=== PATIENT | female | born 1960 | race Caucasian/White ===

== ENCOUNTER 2016-11-26 10:06 | Inpatient (IN) | payer OTHER ==
[~2016-11-26] VITALS: Ht 167.6 cm; Wt 39.2 kg
[~2016-11-26 10:06] MED LIST: CIPR500T4 PO; DICY1TAB26 PO; LEVO100T4 PO; METR-1 PO; ZOFR4TAB3 SL
[2016-11-26 10:19] VITALS: BP 119/74; PULSE 76; RESP 16; TEMP 98; O2SAT 97
[2016-11-26] MEDS ORDERED: LEVO88TA2 PO (11:14)
--- NOTE | 2016-11-26 11:19 | PD ---
HPI Chief Complaint: GI Complaint Time Seen by Provider: 11:18 Travel History International Travel<30 days: No Contact w/Intl Traveler<30days: No History of Present Illness HPI Patient 55-year-old female smoker presents emergency department for evaluation of a show pain. She states that she thought she had some sinus problems and starting to take an anti-allergy medicine. She stated that last night she threw up 4 times nonbloody and nonbilious and she's been feeling lousy. Denies any pain in the chest abdomen neck back or pelvis. Denies any weight loss. States symptoms for the past 2-3 days. PFSH Past Medical History Cancer: No Cardiovascular Problems: No Diabetes: No Diminished Hearing: No Glaucoma: No Hepatitis: No Hiatal Hernia: No Hypertension: No Respiratory: No Thyroid Disease: Yes Tubal Ligation: Yes Past Surgical History Abdominal Surgery: No Cardiac Surgery: No Ear Surgery: No Endocrine Surgery: No Eye Surgery: No Genitourinary Surgery: No Gynecologic Surgery: Yes (TUBAL LIGATION) Neurologic Surgery: No Oral Surgery: No Pacemaker: No Thoracic Surgery: No Other Surgery: No Social History Alcohol Use: No Tobacco Use: Yes (/2 PPD) Substance Use: No Allergies-Medications (Allergen,Severity, Reaction): Coded Allergies: No Known Allergies (Verified , 11/26/16) Reported Meds & Prescriptions Reported Meds & Active Scripts Active Reported Levothyroxine (Levothyroxine Sodium) 88 Mcg Tab 88 Mcg PO DAILY Review of Systems Except as stated in HPI: all other systems reviewed are Neg Physical Exam Narrative GENERAL: Well-developed well-nourished, thin but in no obvious distress. SKIN: Focused skin assessment warm/dry. HEAD: Atraumatic. Normocephalic. EYES: Pupils equal and round. No scleral icterus. No injection or drainage. ENT: No nasal bleeding or discharge. Mucous membranes pink and moist. TMs clear bilaterally, oropharynx clear moist. Minimal tenderness to bilateral maxillary sinuses. Teeth normal. No facial cellulitis. NECK: Trachea midline. No JVD. CARDIOVASCULAR: Regular rate and rhythm. No murmur appreciated. RESPIRATORY: No accessory muscle use. Clear to auscultation. Breath sounds equal bilaterally. GASTROINTESTINAL: Abdomen soft, non-tender, nondistended. Hepatic and splenic margins not palpable. No rebound no percussive tenderness. MUSCULOSKELETAL: No obvious deformities. No clubbing. No cyanosis. No edema. NEUROLOGICAL: Awake and alert. No obvious cranial nerve deficits. Motor grossly within normal limits. Normal speech. PSYCHIATRIC: Appropriate mood and affect; insight and judgment normal. Data Data Last Documented VS Vital Signs Date Time Temp Pulse Resp B/P (MAP) Pulse Ox O2 Delivery O2 Flow Rate FiO2 11/26/16 11:21 64 16 136/77 (96) 96 11/26/16 10:19 98.0 Orders Orders Electrocardiogram (11/26/16 11:18) Basic Metabolic Panel (Bmp) (11/26/16 11:18) Complete Blood Count With Diff (11/26/16 11:18) Troponin I (11/26/16 11:18) Chest, Single Ap (11/26/16 11:18) Iv Access Insert/Monitor (11/26/16 11:18) Sodium Chloride 0.9% Flush (Ns Flush) (11/26/16 11:30) Sodium Chlorid 0.9% 500 Ml Inj (Ns 500 M (11/26/16 11:30) Ondansetron Inj (Zofran Inj) (11/26/16 11:30) Ct Thorax/ Chest W Iv Contrast (11/26/16 ) Sodium, Random Urine (11/26/16 12:41) Osmolality,Serum (11/26/16 12:41) Osmolality, Urine (11/26/16 12:41) Potassium, Random Urine (K) (11/26/16 12:41) Basic Metabolic Panel (Bmp) (11/26/16 12:41) Admit Order (Ed Use Only) (11/26/16 ) Creatinine, Random Urine (11/26/16 12:55) Labs Laboratory Tests Test 11/26/16 11:44 White Blood Count 3.5 TH/MM3 Red Blood Count 4.44 MIL/MM3 Hemoglobin 14.2 GM/DL Hematocrit 41.2 % Mean Corpuscular Volume 92.7 FL Mean Corpuscular Hemoglobin 32.0 PG Mean Corpuscular Hemoglobin Concent 34.5 % Red Cell Distribution Width 11.6 % Platelet Count 229 TH/MM3 Mean Platelet Volume 7.9 FL Neutrophils (%) (Auto) 62.2 % Lymphocytes (%) (Auto) 23.3 % Monocytes (%) (Auto) 12.3 % Eosinophils (%) (Auto) 0.8 % Basophils (%) (Auto) 1.4 % Neutrophils # (Auto) 2.3 TH/MM3 Lymphocytes # (Auto) 0.8 TH/MM3 Monocytes # (Auto) 0.4 TH/MM3 Eosinophils # (Auto) 0.0 TH/MM3 Basophils # (Auto) 0.0 TH/MM3 CBC Comment DIFF FINAL Differential Comment Blood Urea Nitrogen 3 MG/DL Creatinine 0.46 MG/DL Random Glucose 93 MG/DL Calcium Level 8.6 MG/DL Sodium Level 116 MEQ/L Potassium Level 3.8 MEQ/L Chloride Level 81 MEQ/L Carbon Dioxide Level 26.2 MEQ/L Anion Gap 9 MEQ/L Estimat Glomerular Filtration Rate 140 ML/MIN Troponin I LESS THAN 0.02 NG/ML MDM Medical Decision Making Medical Screen Exam Complete: Yes Emergency Medical Condition: Yes Interpretation(s) Patient's EKG shows sinus rhythm with first-degree heart block. DC interval is 227, intervals otherwise within normal limits. Normal axis normal R-wave progression. No concerning ST segment changes. This abnormal EKG. Differential Diagnosis Sinusitis, gastritis, gastroenteritis, pneumonia unlikely, electrolyte abnormality. Narrative Course Patient roomed emergency department, has a vague symptoms of just not feeling well. Patient's Chest x-ray shows a right upper lobe mass concerning for malignancy. Sodium returns at 116 high possibility for SIADH secondary to lung cancer. Given her smoking history and her very thin habitus this is likely her diagnosis. The patient did appear somewhat dehydrated and received 500 cc of normal saline. This bolus had completed bedtime her sodium returned. We'll speak with the patient regarding CAT scan admission to the hospital further workup. I've spoken with the patient regarding her probable diagnosis of SIADH and lung cancer. She is reasonably sudden by the news and wishes to proceed forward. He was discussed with hospitalist for admission. Diagnosis Primary Impression: Hyponatremia Additional Impression: Lung mass Admitting Information Admitting Physician Requests: Admit Condition: Joss Kelly MD Nov 26, 2016 11:19
[2016-11-26 11:21] VITALS: BP 136/77; PULSE 64; RESP 16; O2SAT 96
[2016-11-26] MEDS ORDERED: SODIUM CHLORID 0.9% 500 ML INJ 500 ML IV ONE (11:30)
[2016-11-26] MEDS ORDERED: ONDANSETRON HCL 4 MG/2 ML VIAL IV PUSH ONE (11:30)
[2016-11-26] MEDS ORDERED: SODIUM CHLORIDE 0.9% FLUSH 10 ML FLUSH IVF PRN (11:30)
--- NOTE | 2016-11-26 11:37 | RADRPT ---
EXAM DATE/TIME: 11/26/2016 11:20 [facility] COMPARISON: CHEST PA & LAT, November 13, 2013, 12:13. INDICATIONS : Chest pain for 2 days. MEDICAL HISTORY : None. SURGICAL HISTORY : None. ENCOUNTER: Initial ACUITY: 2 days PAIN SCORE: 0/10 LOCATION: Bilateral chest FINDINGS: A single view of the chest demonstrates right upper lobe density. Left lung clear. The cardiomediasti nal contours are unremarkable. Osseous structures are intact. CONCLUSION: Right upper lobe density, CT chest recommended.. Francisco Hair MD on November 26, 2016 at 11:35 Board Certified Radiologist. This report was verified electronically.
[2016-11-26 11:54] LABS: AUTOMATED NEUTROPHIL # 2.3 TH/MM3 (1.8-7.7); BASOPHIL % 1.4 % (0.0-2.0); EOSINOPHIL % 0.8 % (0.0-4.0); HEMATOCRIT 41.2 % (35.0-46.0); HEMO FLAGS DIFF FINAL; LYMPH % 23.3 % (9.0-44.0); LYMPHOCYTE # 0.8 TH/MM3 (1.0-4.8); MEAN CELL VOLUME 92.7 FL (80.0-100.0); MEAN CORPUSCULAR HGB CONC 34.5 % (32.0-36.0); MONO % 12.3 % (0.0-8.0); NEUT % 62.2 % (16.0-70.0); PLATELET COUNT 229 TH/MM3 (150-450); RED BLOOD COUNT 4.44 MIL/MM3 (4.00-5.30); RED CELL DISTRIBUTION WIDTH 11.6 % (11.6-17.2); WHITE BLOOD COUNT 3.5 TH/MM3 (4.0-11.0)
[2016-11-26] MEDS ORDERED: IOHEXOL 350 MG/ML 10 ML VIAL (for RAD DIAG) IV ONE (12:00)
[2016-11-26 12:10] LABS: ANION GAP 9 MEQ/L (5-15); BICARBONATE 26.2 MEQ/L (21.0-32.0); BLOOD UREA NITROGEN 3 MG/DL (7-18); CHLORIDE 81 MEQ/L (98-107); GLOMERULAR FILTRATION RATE 140 ML/MIN (>89); POTASSIUM 3.8 MEQ/L (3.5-5.1)
[2016-11-26 12:17] LABS: SODIUM (NA) 116 MEQ/L (136-145)
--- NOTE | 2016-11-26 13:19 | RADRPT ---
EXAM DATE/TIME: 11/26/2016 13:04 [facility] COMPARISON: No previous studies available for comparison. INDICATIONS : Overall ill feeling, nausea, vomiting weakness.Right upper lobe density seen on chest xray. IV CONTRAST: 70 cc Omnipaque 350 (iohexol) IV RADIATION DOSE: 6.20 CTDIvol (mGy) MEDICAL HISTORY : None SURGICAL HISTORY : Tubal ligation. ENCOUNTER: Initial ACUITY: 1 week PAIN SCALE: 0/10 LOCATION: chest right upper lobe. TECHNIQUE: Volumetric scanning of the chest was performed. Using automated exposure control and adjustment of t he mA and/or kV according to patient size, radiation dose was kept as low as reasonably achievable to obtain optimal diagnostic quality images. DICOM format image data is available electronically for review and comparison. Follow-up recommendations for detected pulmonary nodules are based at a minimum on nodule size and pa tient risk factors according to Fleischner Society Guidelines. FINDINGS: LUNGS: There is right upper lobe mass measuring 2.4 x 1.6 cm. Severe centrilobular emphysema. Left lung ernesto r. PLEURA: There is no pleural thickening or pleural effusion. MEDIASTINUM: The heart and great vessels demonstrate no acute abnormality. Right suprahilar adenopathy measures 2. 3 x 2.2 cm. AXILLAE: Within normal limits. No lymphadenopathy. SKELETAL: Within normal limits for patient age. MISCELLANEOUS: The visualized upper abdominal organs demonstrate no acute abnormality. CONCLUSION: 1. Right upper lobe mass measuring 2.4 x 1.6 cm. 2. Right suprahilar adenopathy. 3. Severe emphysema. Francisco Hair MD on November 26, 2016 at 13:15 Board Certified Radiologist. This report was verified electronically.
[2016-11-26 13:51] VITALS: BP 142/77; PULSE 72; RESP 16; O2SAT 97
[2016-11-26 14:06] LABS: POTASSIUM 3.5 MEQ/L (3.5-5.1)
[2016-11-26] MEDS ORDERED: NALOXONE HCL 0.4 MG/ML AMP IV PRN (15:15)
[2016-11-26] MEDS ORDERED: ONDANSETRON HCL 4 MG/2 ML VIAL IVP PRN (15:15)
[2016-11-26] MEDS ORDERED: SODIUM CHLORIDE 0.9% FLUSH 10 ML FLUSH IV FLUSH PRN (15:15)
[2016-11-26] MEDS ORDERED: SODIUM CHLORID 0.9% 500 ML INJ 500 ML IV SCH (16:00)
[2016-11-26] MEDS ORDERED: 3% SALINE INJ 500 ML IV ONE (16:00)
[2016-11-26] MEDS: PANTOPRAZOLE SODIUM 40 MG VIAL IV PUSH SCH (16:16)
--- NOTE | 2016-11-26 16:24 | MH ---
cc: JENN THOMAS M.D. DATE OF ADMISSION: 11/26/2016 ADMISSION DIAGNOSIS: Hyponatremia and lung mass. HISTORY OF PRESENT ILLNESS: Ms. Sagastume is a very pleasant 55-year-old patient of Dr. Gilberto Moyer who came to the emergency room after experiencing a week of general malaise, fatigue and headache. She states this started approximately Monday. She primarily states that she did not feel right. She felt like there was something wrong but there was nothing really specific that she can tell me. She was little bit more tired than usual. She had a headache. She was taking ibuprofen 200 milligrams twice a day for her headache with a little bit of relief. She was having trouble eating. She was getting nauseous when she ate and she was having emesis. She was trying to keep herself hydrated with óscar el and water primarily in the evening. She says that when she threw up it was clear. There has been no decrease in urination. No fevers but she states she has had some chills. No change in her bowel movements. She really has not been coughing or short of breath. Her symptomatology was not very specific. She stated she simply was not feeling well. PAST MEDICAL HISTORY: Her past medical history is significant for: Hypothyroidism. PAST SURGICAL HISTORY: Tubal ligation. ALLERGIES: SHE IS NOT ALLERGIC TO ANYTHING. MEDICATIONS: 1. Levothyroxine 88 micrograms daily. 2. Ibuprofen 200 milligrams twice a day this week primarily. HABITS: She does smoke a pack a day for approximately thirty years. Rarely consumes alcohol. SOCIAL HISTORY: She is . She states that last year her had a liver transplant and a lot of her energy has been directed in caring for him. 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 FAMILY HISTORY: Diabetes. REVIEW OF SYSTEMS: See history of present illness. The only other thing of significance is that she has had a 10 to 15 pound unintentional weight loss this year. She states that when she has been sick before she has been given inhalers for wheezing but she does not feel that she has been wheezing currently. PHYSICAL EXAMINATION: VITAL SIGNS: Temperature is 98, pulse is 76, respirations 16, blood pressure is 119/74, pulse oximetry on room air is 97%. GENERAL: This is a very thin woman but very pleasant. She does not appear to be in any acute distress. HEAD, EYES, EARS, NOSE, THROAT: She is normocephalic and atraumatic. Extraocular muscles intact. She has moist oral mucosa. NECK: Her neck is supple. I can palpate no adenopathy. LUNGS: Clear to auscultation. HEART: Regular rate and rhythm. She has no ectopy. ABDOMEN: Good bowel sounds in all four quadrants. She does have a little belly button ring. A little bit of mid-epigastric tenderness on deep palpation. EXTREMITIES: No cyanosis, clubbing or edema. She does have some tattoos on her lower extremities. LABORATORY DATA: Lab work that was done when she came in: White count of 3.5, hemoglobin of 14.2, hematocrit of 41.2, platelet count of 229,000. Her sodium was remarkable for a sodium of 116, potassium 3.8, BUN of 3, creatinine 0.46, GFR was 140, glucose was 93, calcium was 8.6. Troponin was less than 0.42. Urine osmolality was 164. Urine random sodium was 39. Urine potassium was 15. IMAGING STUDIES: Chest x-ray that was done showed right upper lobe density. CT scan that was done showed a right upper lobe mass measuring 2.4 x 1.6 cm with severe central lobar emphysema. The left lung was clear. On the mediastinum, the great vessels showed no abnormality but there was a right suprahilar adenopathy that measured 2.3 x 2.2 cm. No lymphadenopathy in the axillary region. Upper abdominal organs appear to be normal. ASSESSMENT AND PLAN: A 55-year-old female presenting to the emergency room with generalized weakness and fatigue with findings of hyponatremia. 1. At this point, she has been admitted. 2. Will try to replace her sodium. 3. I have asked nephrology to see her. 4. She has finding of a right upper lobe lung mass as well as emphysema.The mass is concerning for malignancy. I have also asked the regional director of finance to see her for further recommendations. 6. For her hypothyroidism, will continue her on her levothyroxine. Further recommendations as the case develops. Jenn Thomas MD CSBeata/GEO /3:39 PM /4:10 PM NATTY
[2016-11-26] MEDS: ACETAMINOPHEN 325 MG TAB PO PRN (16:35)
[2016-11-26 16:53] VITALS: BP 125/77; PULSE 65; RESP 19; TEMP 96.6; O2SAT 98
[2016-11-26 20:15] VITALS: BP 145/85; PULSE 67; RESP 16; TEMP 98.7; O2SAT 95
[2016-11-26] MEDS: SODIUM CHLORIDE 0.9% FLUSH 10 ML FLUSH IV FLUSH SCH (21:00)
--- NOTE | 2016-11-26 23:09 | MB ---
cc: WILIAM GARCIA MD DATE OF CONSULTATION 11/26/16 REASON FOR CONSULTATION Hyponatremia management. HISTORY OF PRESENT ILLNESS This is a 55-year-old female with a history of hypothyroidism. The patient presented with general malaise, fatigue and headaches for several days. She reports she had some nausea with decreased p.o. intake. The patient had been taking some ibuprofen for headache as well. 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 The patient came the emergency room for further evaluation. Here she was found to have significant hyponatremia with a serum sodium of 116. Her renal function was otherwise stable with a creatinine of 0.4. The patient has an extensive history of tobacco use and currently still smokes. A CT of his lungs was positive for findings of right suprahilar adenopathy at the right lung and a lesion that measured 2.3 x 2.2 cm. The patient was admitted. Given her hyponatremia, the primary team initiated 3% saline at 20 cc/hour. Pulmonology was also consulted for further evaluation of lung mass. At this point, the patient is resting in bed comfortably. She reports she has been tolerating p.o. intake and is feeling somewhat better since her admission here. Her vital signs have otherwise been stable. Nephrology was consulted for further evaluation. REVIEW OF SYSTEMS The patient denies any fevers or chills today, had some subjective fever at home, had some ongoing nausea which is somewhat improved now. No diarrhea. No constipation. No dysuria. No chest pains. No shortness of breath. Otherwise, review of systems is negative. No dizziness or loss of consciousness otherwise other than general malaise. PAST MEDICAL HISTORY Hypothyroidism. PAST SURGICAL HISTORY Tubal ligation. ALLERGIES NO KNOWN DRUG ALLERGIES. MEDICATIONS At home 1. Synthroid 88 mcg daily. 2. Ibuprofen which the patient takes just this week twice per day. SOCIAL HISTORY The patient smokes a pack per day for 30 years, rare alcohol use. 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 SOCIAL HISTORY The patient is and lives at home. FAMILY HISTORY Diabetes. PHYSICAL EXAMINATION VITAL SIGNS: At time of evaluation temperature 98.7, pulse 67, respiratory rate 16, blood pressure 145/85, pulse ox 95% on room air. GENERAL: Awake, alert, oriented, no apparent distress. HEENT: Neck soft supple. CARDIAC: Regular rate and rhythm. PULMONARY: Lungs clear to auscultation. ABDOMEN: Soft, nontender, nondistended. EXTREMITIES: No edema. LABORATORY FINDINGS Sodium 117, potassium 3.5, chloride 84, bicarb 24, BUN three, creatinine 0.4, glucose 86, serum osmolality 250, calcium 8.5, troponin less than 0.02, TSH of 0.6, urine osmolality of 164, urine creatinine 21, urine sodium 39, urine potassium 15, white count 3.5, hemoglobin 14.2, hematocrit 41.2 with platelet count 229. IMAGING STUDIES CT chest with findings of right upper lobe mass measuring 2.4 x 1.6 cm and right suprahilar adenopathy with severe emphysema. ASSESSMENT/PLAN 1. Hyponatremia. The patient presents with significant hyponatremia with a serum sodium of 117. She reports she has had regular lab work as an outpatient with her primary care and reports no significant abnormalities were noted previously. The patient has a serum osmolarity of 250 and a urine osmolality of 160. She has apparent clinical presentation of hypotonic hyponatremia. At this point, it could be equivocal whether this is potential SIADH secondary to findings of new lung mass versus volume depletion with poor p.o. intake and poor solute intake over several days. The patient had been drinking óscar el and her serum chloride was low as well. There is likely a component of both here as the patient has significant hyponatremia with presentation here. We will recheck urine sodium and urine osmolality tomorrow after the patient has received some volume repletion with 3% saline as was previously ordered. Continue to monitor at this point. She continues on 3% saline at 20 cc/hour. I will go ahead and order serum sodium q. 4-6 hours for further assessment. The goal is less than 8-10 mEq of sodium correction over 24 hours. Once her serum sodium further stabilizes, can further assess for possible longer term management. The patient is starting to tolerate p.o. intake and I encouraged the patient to tolerate p.o. intake as tolerated. Otherwise, she is clinically feeling better. She has no significant findings of altered mental status or confusion otherwise and her status is actually quite stable, despite her a significant hyponatremia. Continue to follow sodium levels. We will further adjust dosing of 3% solution as needed and ideally back off on hypertonic solution once the serum sodium is further stabilized. 2. Lung mass. The patient has findings of a lung mass. Pulmonary has been consulted. This is suspicious for possible SIADH secondary to lung mass. She has an extensive tobacco history and still smokes and there is a good possibility for lung cancer here. She does have findings of emphysema. Continue to follow up with pulmonary. 3. Hypothyroidism. The patient has hypothyroidism. Her TSH levels are actually stable. All of this can contribute to hyponatremia at times. Her TSH is actually okay at this point. Continue with Synthroid. Continue to monitor. 4. Previous headaches. The patient had been taking ibuprofen. Hold ibuprofen for now. She reports her headaches have improved. MD PARMINDER JesusP/ /10:32 PM /10:43 PM MTDD
[2016-11-27 00:37] LABS: BLOOD, URINE TRACE (NEG); GLUCOSE,URINE NEG (NEG); KETONE, URINE 15 mg/dL (NEG); NITRITE,URINE NEG (NEG)
[2016-11-27 00:42] LABS: BACTERIA, URINE FEW /hpf; COMMENT (UR) CULT NOT INDICATED; CULTURE IF INDICATED CULT NOT INDICATED; RBC, URINE 0-3 /hpf (0-3); SQUAMOUS EPITHELIAL CELL URINE 0-5 /hpf (0-5); URINE COLOR YELLOW (YELLW/STRAW)
[2016-11-27 00:54] VITALS: BP 129/71; PULSE 65; RESP 16; TEMP 98.1; O2SAT 97
[2016-11-27] MEDS: LEVOTHYROXINE SODIUM 88 MCG TAB PO SCH (05:38)
[2016-11-27 06:01] LABS: AUTOMATED NEUTROPHIL # 3.6 TH/MM3 (1.8-7.7); BASOPHIL % 0.4 % (0.0-2.0); EOSINOPHIL % 0.8 % (0.0-4.0); HEMATOCRIT 38.7 % (35.0-46.0); HEMO FLAGS DIFF FINAL; LYMPH % 20.9 % (9.0-44.0); LYMPHOCYTE # 1.1 TH/MM3 (1.0-4.8); MEAN CORPUSCULAR HEMOGLOBIN 33.2 PG (27.0-34.0); MEAN CORPUSCULAR HGB CONC 35.3 % (32.0-36.0); MONO % 11.3 % (0.0-8.0); NEUT % 66.6 % (16.0-70.0); PLATELET COUNT 212 TH/MM3 (150-450); RED BLOOD COUNT 4.12 MIL/MM3 (4.00-5.30); RED CELL DISTRIBUTION WIDTH 11.4 % (11.6-17.2); WHITE BLOOD COUNT 5.3 TH/MM3 (4.0-11.0)
[2016-11-27 06:28] LABS: ALKALINE PHOSPHATASE 80 U/L (45-117); ALT (GPT) 20 U/L (10-53); ANION GAP 8 MEQ/L (5-15); AST (GOT) 31 U/L (15-37); BICARBONATE 24.9 MEQ/L (21.0-32.0); BLOOD UREA NITROGEN 6 MG/DL (7-18); CHLORIDE 89 MEQ/L (98-107); GLOMERULAR FILTRATION RATE 186 ML/MIN (>89); POTASSIUM 3.2 MEQ/L (3.5-5.1); TOTAL BILIRUBIN ADULT 0.6 MG/DL (0.2-1.0)
[2016-11-27 06:34] LABS: SODIUM (NA) 122 MEQ/L (136-145)
[2016-11-27] MEDS: SODIUM CHLORIDE 0.9% FLUSH 10 ML FLUSH IV FLUSH SCH ×2 (07:40→21:05)
[2016-11-27] MEDS: ACETAMINOPHEN 325 MG TAB PO PRN ×2 (07:40→12:35)
[2016-11-27 08:00] VITALS: BP 112/65; PULSE 63; RESP 16; TEMP 96.8; O2SAT 98
[2016-11-27] MEDS ORDERED: PNEUMOCOCCAL POLYVALENT INJ 25 MCG/0.5 ML SYR IM ONE ×2 (10:00→14:00)
[2016-11-27 12:00] VITALS: BP 138/78; PULSE 66; RESP 16; TEMP 97.2; O2SAT 96
[2016-11-27] MEDS ORDERED: 3% SALINE INJ 500 ML IV SCH (13:00)
[2016-11-27] MEDS ORDERED: SODIUM CHLORID 0.9% 500 ML INJ 500 ML IV SCH (13:00)
--- NOTE | 2016-11-27 15:10 | EKG ---
Date Performed: 11/26/2016 Time Performed: 16:03:08 PTAGE: 55 years EKG: Sinus rhythm WITH FIRST DEGREE AV BLOCK Compared to prior tracing no significant change ABNORMAL ECG PREVIOUS TRACING : 11/26/2016 11.28 DOCTOR: Christian Oliver Interpretating Date/Time 11/27/2016 15:09:19
--- NOTE | 2016-11-27 15:10 | EKG ---
Date Performed: 11/26/2016 Time Performed: 11:28:53 PTAGE: 55 years EKG: Sinus rhythm WITH FIRST DEGREE AV BLOCK Compared to previous tracing, PA interval is slightly longer, otherwise n o significant change ABNORMAL ECG PREVIOUS TRACING : 11/13/2013 11.54 DOCTOR: Christian Oliver Interpretating Date/Time 11/27/2016 15:09:09
[2016-11-27] MEDS: POTASSIUM CHLORIDE 25 MEQ EFFERVESCENT TAB PO SCH ×2 (15:11→21:05)
[2016-11-27] MEDS: PANTOPRAZOLE SODIUM 40 MG VIAL IV PUSH SCH (15:12)
--- NOTE | 2016-11-27 15:17 | HHI.PR ---
Subjective Remarks Headache a little better but still there. Able to eat a little at breakfast today. Objective Vitals Vital Signs Date Time Temp Pulse Resp B/P (MAP) Pulse Ox O2 Delivery O2 Flow Rate FiO2 11/27/16 13:40 18 11/27/16 12:00 97.2 66 16 138/78 (98) 96 11/27/16 08:00 96.8 63 16 112/65 (81) 98 11/27/16 00:54 98.1 65 16 129/71 (90) 97 11/26/16 20:15 98.7 67 16 145/85 (105) 95 11/26/16 16:53 96.6 65 19 125/77 (93) 98 11/27/16 11/27/16 11/28/16 15:00 23:00 07:00 Intake Total 750 ml Output Total 800 ml Balance -50 ml Intake Oral 750 ml Output Urine Total 800 ml # Voids 1 Result Diagram: 11/27/16 0528 11/27/16 1124 Imaging Last Impressions Chest X-Ray 11/26/16 1118 Signed Impressions: Service Date/Time: Saturday, November 26, 2016 11:20 - CONCLUSION: Right upper lobe density, CT chest recommended.. Francisco Hair MD Chest CT 11/26/16 0000 Signed Impressions: Service Date/Time: Saturday, November 26, 2016 13:04 - CONCLUSION: 1. Right upper lobe mass measuring 2.4 x 1.6 cm. 2. Right suprahilar adenopathy. 3. Severe emphysema. Francisco Hair MD Objective Remarks Lying in bed, nad Lungs clear to auscultation RRR no murmur +bs nontender SCDs A/P Problem List: (1) Hyponatremia ICD Codes: E87.1 - Hypo-osmolality and hyponatremia Status: Acute Plan: currently on 3 %ns, seen by nephrology, correct sodium slowly, seen by nephrology, agree that this may be multifactorial (2) Lung mass ICD Codes: R91.8 - Other nonspecific abnormal finding of lung field Status: Acute Plan: Pulmonary consult placed for lung mass and adenopathy, will need biopsy (3) Emphysema of lung ICD Codes: J43.9 - Emphysema, unspecified Plan: pulmonary emphysema on ct, will order pfts, (4) Nicotine dependence ICD Codes: F17.200 - Nicotine dependence, unspecified, uncomplicated Status: Chronic Plan: discussed smoking cessation, so far doing ok w/o nicotine patch or other aides Problem Qualifiers (1) Emphysema of lung: Qualified Codes: J43.2 - Centrilobular emphysema (2) Nicotine dependence: Jenn Thomas MD Nov 27, 2016 15:17
[2016-11-27 16:00] VITALS: BP 145/78; PULSE 65; RESP 16; TEMP 97.2; O2SAT 98
[2016-11-27] MEDS ORDERED: DIATRIZOATE MEGLUM/DIATRIZOATE SOD 9 ML CUP PO ONE (16:00)
--- NOTE | 2016-11-27 18:06 | MB ---
cc: RENEE MILES M.D., R. STEVEN DATE OF CONSULTATION: 11/27/2016. HISTORY OF PRESENT ILLNESS: Ms. Sagastume is a 55-year-old white female who presented to the emergency room here at [facility] with generalized malaise and feeling poorly. Basic metabolic profile revealed a sodium of 116. She has had her sodium very gradually increased. She is currently at 122. She is feeling better. She has been a smoker since the age of 13, up to 1-1/2 to 2 packs per day, and currently smokes 1 to 1-1/2 packs per day. 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 She has lost about 10 or 15 pounds over the last six months unintentionally, and appetite had been poor. She also takes care of her who had a liver transplant that year due to hepatitis C. She has been tested, and is negative. PAST MEDICAL HISTORY: 1. Hypothyroidism. 2. Previous tubal ligation. ALLERGIES: NONE KNOWN. MEDICATIONS CHRONICALLY: Thyroid replacement. SOCIAL HISTORY: and living with her . Working as noted. Very little alcohol use. No illicit drugs. Smoking noted. FAMILY HISTORY: Family history is positive for diabetes and she also had a brother who had colon cancer. Her parents are both , father from liver disease probably from alcoholism, and the mother from heart disease. MEDICATIONS HERE IN THE HOSPITAL: 1. Sodium chloride replacement. 2. Potassium. 3. Thyroid. 4. Protonix. REVIEW OF SYSTEMS: No hemoptysis or chest pain. Minimal dyspnea. Loss of appetite. Recent nausea and vomiting. No chronic edema. No bone pain. Headaches prior to admission and those have improved with salt replacement. PHYSICAL EXAMINATION: GENERAL: A thin white female in no distress. VITAL SIGNS: Afebrile, 140/70, pulse 65, respiratory rate 18, saturation 98% on room air. HEAD, EYES, EARS, NOSE, THROAT: The sclerae are nonicteric. Pharynx is clear. LYMPHATIC: No palpable adenopathy in the neck or supraclavicular regions. CHEST: Diminished but otherwise clear. HEART: Regular rhythm. No harsh murmur. ABDOMEN: Abdomen soft and nontender without organomegaly. EXTREMITIES: No peripheral edema or cyanosis. IMAGING STUDIES: CT scan is reviewed with the patient. She has both a right upper lobe mass mid-lung measured at 2.4 x 1.6. She also has right suprahilar adenopathy and underlying emphysema as well. DISCUSSION: Ms. Sagastume presents with hyponatremia, probably secondary to cancer with a prior smoking history. This procedure should be done with ultrasound navigational guidance. The lung lesion itself will be a little difficult to negotiate too but with navigational, that will improve the yield and she also has right suprahilar adenopathy which we should biopsy utilizing ultrasound guidance. Once her sodium is corrected and nephrology is working on that with the hospital physician, she could be discharged. I would also like to get an outpatient PET/CT and pulmonary functions while scheduling her for an outpatient bronchoscopy; hopefully that could be done within the next two weeks. I have also explained this procedure to the patient and explained that it could be done as an outpatient. I have explained it in simple terms so that she understands what it involves and we have also discussed potential risks including bleeding, pneumothorax or anesthetic risks. Assuming that the sodium is corrected and she can be discharged, will schedule these as an outpatient as soon as possible and then proceed with navigational and ultrasound-guided bronchoscopy to ensure maximal yield from this procedure. Further diagnostic and/or therapeutic intervention will depend on the results of these initial diagnostic studies. The patient understands that I am very concerned this represents a malignancy and the importance of immediate follow up post hospitalization. R. MD ETTA Paul/GEO /5:46 PM /5:53 PM
[2016-11-27] MEDS ORDERED: IOHEXOL 350 MG/ML 10 ML VIAL (for RAD DIAG) IVCONTRAST ONE (18:30)
--- NOTE | 2016-11-27 18:48 | RADRPT ---
EXAM DATE/TIME: 11/27/2016 18:07 [facility] COMPARISON: No previous studies available for comparison. INDICATIONS : Lung mass. Headache. IV CONTRAST: 85 cc Omnipaque 350 (iohexol) IV ; Cumulative dose for multiple exams. RADIATION DOSE: 59.01 CTDIvol (mGy) MEDICAL HISTORY : Hypothyroidism. SURGICAL HISTORY : Tubal ligation. ENCOUNTER: Initial ACUITY: 1 day PAIN SCALE: 2/10 LOCATION: cranial TECHNIQUE: Multiple contiguous axial images were obtained of the head. Using automated exposure control and adj ustment of the mA and/or kV according to patient size, radiation dose was kept as low as reasonably a chievable to obtain optimal diagnostic quality images. DICOM format image data is available electro nically for review and comparison. FINDINGS: There is no evidence for intracranial hemorrhage, mass effect, mass lesions, edema, or extra-axial fl uid collections. The visualized bony structures appear intact. The ventricles are normal size for t he patient's age. There are no signs of acute infarction for technique. The postcontrast portion is unremarkable. There is slight fluid within the right sphenoid sinus. CONCLUSION: Unremarkable study except for right sphenoid sinusitis. Sunday Velez MD on November 27, 2016 at 18:45 Board Certified Radiologist. This report was verified electronically.
--- NOTE | 2016-11-27 18:50 | RADRPT ---
EXAM DATE/TIME: 11/27/2016 18:10 [facility] COMPARISON: CT THORAX W CONTRAST, November 26, 2016, 13:04. INDICATIONS : Lung mass found on CT chest. IV CONTRAST: 85 cc Omnipaque 350 (iohexol) IV ; Cumulative dose for multiple exams. ORAL CONTRAST: Prescribed oral contrast ingested. RADIATION DOSE: 4.45 CTDIvol (mGy) MEDICAL HISTORY : Hypothyroidism. SURGICAL HISTORY : Tubal ligation. ENCOUNTER: Initial ACUITY: 1 day PAIN SCALE: 0/10 LOCATION: abdomen TECHNIQUE: Volumetric scanning of the abdomen and pelvis was performed. Using automated exposure control and ad justment of the mA and/or kV according to patient size, radiation dose was kept as low as reasonably achievable to obtain optimal diagnostic quality images. DICOM format image data is available electro nically for review and comparison. FINDINGS: CT Abdomen: The liver, spleen, pancreas, kidneys, adrenals are unremarkable. There is no evidence for any appreciable pathological adenopathy, free fluid, or bowel obstruction. Chronic vascular calcifi cations are present involving the aorta, iliac arteries without any significant stenosis or aneurysma l dilatations for technique. CT pelvis: There is no evidence for mass, abscess formation, or any significant adenopathy within the pelvis. CONCLUSION: Essentially unremarkable study except for atherosclerotic vascular calcifications. Sunday Velez MD on November 27, 2016 at 18:47 Board Certified Radiologist. This report was verified electronically.
--- NOTE | 2016-11-27 19:19 | HHI.NPPN ---
Subjective Additional Remarks Feeling tired, no acute complaints Objective Data Data 11/27/16 11/28/16 19:00 07:00 Intake Total 1000 ml Output Total 2400 ml Balance -1400 ml Intake Oral 1000 ml Output Urine Total 1900 ml Emesis 500 ml # Voids 1 Vital Signs Date Time Temp Pulse Resp B/P (MAP) Pulse Ox O2 Delivery O2 Flow Rate FiO2 11/27/16 16:00 97.2 65 16 145/78 (100) 98 11/27/16 13:40 18 11/27/16 12:00 97.2 66 16 138/78 (98) 96 11/27/16 08:00 96.8 63 16 112/65 (81) 98 11/27/16 00:54 98.1 65 16 129/71 (90) 97 11/26/16 20:15 98.7 67 16 145/85 (105) 95 -: 11/27/16 0528 11/27/16 1725 Physical Exam General Appearance: No Acute Distress, Comfortable Throat Throat Exam: Oral Mucosa [place] & Moist Neck Neck Exam: Neck Supple Pulmonary Resp Exam: Clear Bilaterally Cardiology CV Exam: Regular, Normal Sinus Rhythm Integumentary Skin Exam: Warm, Dry, Intact Extremeties Extremities Exam: No Edema Neurologic Neuro Exam: Alert, Awake, Oriented Assessment/Plan Problem List: (1) Hyponatremia ICD Codes: E87.1 - Hypo-osmolality and hyponatremia Status: Acute Plan: 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 Also some component of volume depletion with nausea and poor PO intake prior to admission. Continue to monitor at this point. She continues on 3% saline - will increase to 30 cc/hour. Continue to check Na q6 hours for further assessment. The goal is less than 8- 10 mEq of sodium correction over 24 hours. Can stop 3% saline once Na stabilizes to 130s. Longer term management will require periodic sodium checks as an outpatient, fluid restriction. Tolvaptan may also be a consideration for management. (2) Lung mass ICD Codes: R91.8 - Other nonspecific abnormal finding of lung field Status: Acute Plan: Plan for outpatient PET/CT and biopsy. (3) Hypothyroid ICD Codes: E03.9 - Hypothyroidism, unspecified Plan: Continues synthroid.. TSH normal Billy Ayon MD Nov 27, 2016 19:19
[2016-11-27 20:27] VITALS: BP 121/63; PULSE 67; RESP 16; TEMP 97.5; O2SAT 98
[2016-11-27] MEDS: 3% SALINE INJ 500 ML IV SCH (21:06)
[2016-11-27] MEDS: ALPRAZolam 0.25 MG TAB PO PRN (21:13)
[2016-11-28 00:12] VITALS: BP 124/66; PULSE 72; RESP 16; TEMP 98.7; O2SAT 97
[2016-11-28] MEDS: 3% SALINE INJ 500 ML IV SCH (02:16)
[2016-11-28 04:19] VITALS: RESP 20
[2016-11-28] MEDS: LEVOTHYROXINE SODIUM 88 MCG TAB PO SCH (05:23)
[2016-11-28 05:52] LABS: BICARBONATE 24.3 MEQ/L (21.0-32.0); POTASSIUM 3.5 MEQ/L (3.5-5.1)
[2016-11-28 08:00] VITALS: BP 131/83; PULSE 83; RESP 20; TEMP 98; O2SAT 97
[2016-11-28] MEDS: SODIUM CHLORIDE 0.9% FLUSH 10 ML FLUSH IV FLUSH SCH ×2 (09:00→20:11)
[2016-11-28] MEDS: ALPRAZolam 0.25 MG TAB PO PRN ×2 (10:08→22:50)
[2016-11-28] MEDS: POTASSIUM CHLORIDE 25 MEQ EFFERVESCENT TAB PO SCH (10:08)
--- NOTE | 2016-11-28 10:59 | HHI.PR ---
Subjective Remarks Some nausea yesterday, ate ok today. no cough, headache improved Objective Vitals Vital Signs Date Time Temp Pulse Resp B/P (MAP) Pulse Ox O2 Delivery O2 Flow Rate FiO2 11/28/16 08:00 98.0 83 20 131/83 (99) 97 11/28/16 04:19 20 11/28/16 00:12 98.7 72 16 124/66 (85) 97 11/27/16 20:27 97.5 67 16 121/63 (82) 98 11/27/16 16:00 97.2 65 16 145/78 (100) 98 11/27/16 13:40 18 11/27/16 12:00 97.2 66 16 138/78 (98) 96 Result Diagram: 11/27/16 0528 11/28/16 0455 Imaging Last Impressions Chest X-Ray 11/26/16 1118 Signed Impressions: Service Date/Time: Saturday, November 26, 2016 11:20 - CONCLUSION: Right upper lobe density, CT chest recommended.. Francisco Hair MD Chest CT 11/26/16 0000 Signed Impressions: Service Date/Time: Saturday, November 26, 2016 13:04 - CONCLUSION: 1. Right upper lobe mass measuring 2.4 x 1.6 cm. 2. Right suprahilar adenopathy. 3. Severe emphysema. Francisco Hair MD Last Impressions Chest X-Ray 11/26/168 Signed Impressions: Service Date/Time: Saturday, November 26, 2016 11:20 - CONCLUSION: Right upper lobe density, CT chest recommended.. Francisco Hair MD Chest CT 11/26/16 0000 Signed Impressions: Service Date/Time: Saturday, November 26, 2016 13:04 - CONCLUSION: 1. Right upper lobe mass measuring 2.4 x 1.6 cm. 2. Right suprahilar adenopathy. 3. Severe emphysema. Francisco Hair MD Objective Remarks Lying in bed, nad Lungs clear to auscultation, no ronchi or wheezes RRR no murmur +bs nontender SCDs A/P Problem List: (1) Hyponatremia ICD Codes: E87.1 - Hypo-osmolality and hyponatremia Status: Acute Plan: sodium 130, will stop 3% NS, placed on fluid restriction last pm (2) Lung mass ICD Codes: R91.8 - Other nonspecific abnormal finding of lung field Status: Acute Plan: seen by Dr Martinez yesterday plan for outpatient ultrasound and PET scan ct scans in hospital neg aside from ct of thorax (3) Emphysema of lung ICD Codes: J43.9 - Emphysema, unspecified Plan: pulmonary emphysema on ct, PFTs ordered (4) Nicotine dependence ICD Codes: F17.200 - Nicotine dependence, unspecified, uncomplicated Status: Chronic Plan: discussed smoking cessation, so far doing ok w/o nicotine patch or other aides Assessment and Plan Will stop 3% today and maintain fluid restriction if sodium remains stable d/c in am with close follow up Problem Qualifiers (1) Emphysema of lung: Qualified Codes: J43.2 - Centrilobular emphysema (2) Nicotine dependence: Jenn Thomas MD Nov 28, 2016 10:59
[2016-11-28 12:00] VITALS: BP 122/79; PULSE 76; RESP 20; TEMP 98.5; O2SAT 96
[2016-11-28] MEDS: PANTOPRAZOLE SODIUM 40 MG VIAL IV PUSH SCH (15:33)
[2016-11-28 16:00] VITALS: BP 128/79; PULSE 74; RESP 20; TEMP 98.3; O2SAT 98
--- NOTE | 2016-11-28 17:31 | HHI.NPPN ---
Subjective Interval History She is feeling better. Sodium is 130 today. (Yvonne Douglass) Objective Data Data 11/28/16 11/29/16 18:59 06:59 Intake Total 720 ml Balance 720 ml Intake Oral 720 ml # Voids 3 Vital Signs Date Time Temp Pulse Resp B/P (MAP) Pulse Ox O2 Delivery O2 Flow Rate FiO2 11/28/16 16:00 98.3 74 20 128/79 (95) 98 11/28/16 12:00 98.5 76 20 122/79 (93) 96 11/28/16 08:00 98.0 83 20 131/83 (99) 97 11/28/16 04:19 20 11/28/16 00:12 98.7 72 16 124/66 (85) 97 11/27/16 20:27 97.5 67 16 121/63 (82) 98 (Yvonne Douglass) -: 11/27/16 0528 11/28/16 0455 Imaging Last Impressions Chest X-Ray 11/26/16 1118 Signed Impressions: Service Date/Time: Saturday, November 26, 2016 11:20 - CONCLUSION: Right upper lobe density, CT chest recommended.. Francisco Hair MD Chest CT 11/26/16 0000 Signed Impressions: Service Date/Time: Saturday, November 26, 2016 13:04 - CONCLUSION: 1. Right upper lobe mass measuring 2.4 x 1.6 cm. 2. Right suprahilar adenopathy. 3. Severe emphysema. Francisco Hair MD (Yvonne Douglass) Physical Exam General Appearance: No Acute Distress, Comfortable (Yvonne Douglass) Throat Throat Exam: Oral Mucosa [place] & Moist (Yvonne Douglass) Neck Neck Exam: Neck Supple (Yvonne Douglass) Pulmonary Resp Exam: Clear Bilaterally (Yvonne Douglass) Cardiology CV Exam: Regular, Normal Sinus Rhythm (Yvonne Douglass) Gastrointestinal/Abdomen GI Exam: Soft, Non-Tender (Yvonne Douglass) Musculoskeletal MS Exam: Joints Intact, Normal Tone (Yvonne Douglass) Integumentary Skin Exam: Warm, Dry, Intact (Yvonne Douglass) Extremeties Extremities Exam: No Edema, Pedal Pulses Palpable (Yvonne Douglass) Neurologic Neuro Exam: Alert, Awake, Oriented, Speech Clear, Moving All Extremities (Yvonne Douglass) Psychiatric Psych Exam: Appropriate Responses (Yvonne Douglass) Assessment/Plan Discussed Condition With: Patient, Spouse, Relative Electrolyte Assessment: Hyponatremia Problem List: (1) Hyponatremia ICD Codes: E87.1 - Hypo-osmolality and hyponatremia Status: Resolved Plan: Hyponatremia likely SIADH due to new lung mass. sodium has improved to 130 Hypertonic saline has been stopped for ch[facility] management fluid restriction should be enforced, we did discuss this with the patient additional therapies such as NaCl tablets or tolvaptan can be considered in the future. (2) Lung mass ICD Codes: R91.8 - Other nonspecific abnormal finding of lung field Status: Acute Plan: Plan for outpatient PET/CT and biopsy. Dr Martinez has evaluated (3) Hypothyroid ICD Codes: E03.9 - Hypothyroidism, unspecified Plan: On Synthroid. TSH is normal Plan she is cleared for discharge from renal perspective (Yvonne Douglass) Plan patient was sen and examined. Serum Na has improved. Consider fluid restriction and salt tablet and possibly a loop diuretic. (Obdulio Padilla MD) Yvonne Douglass Nov 28, 2016 17:31 Obdulio Padilla MD Nov 29, 2016 11:34
[2016-11-28 17:49] LABS: POTASSIUM 4.1 MEQ/L (3.5-5.1)
[2016-11-28 17:52] LABS: BICARBONATE 26.4 MEQ/L (21.0-32.0)
[2016-11-28 20:00] VITALS: BP 145/79; PULSE 66; RESP 16; TEMP 95; O2SAT 100
[2016-11-29] VITALS: BP 122/70; PULSE 69; RESP 16; TEMP 96; O2SAT 96
[2016-11-29] MEDS: LEVOTHYROXINE SODIUM 88 MCG TAB PO SCH (05:37)
[2016-11-29 06:39] LABS: POTASSIUM 4.1 MEQ/L (3.5-5.1)
[2016-11-29 06:43] LABS: BICARBONATE 28.5 MEQ/L (21.0-32.0)
[2016-11-29 08:00] VITALS: BP 122/79; PULSE 72; RESP 16; TEMP 97; O2SAT 99
[2016-11-29] MEDS ORDERED: PANTOPRAZOLE SOD 40 MG DELAYED RELEASE TAB PO SCH (09:00)
[2016-11-29] MEDS: SODIUM CHLORIDE 0.9% FLUSH 10 ML FLUSH IV FLUSH SCH (09:50)
[2016-11-29] MEDS: ALPRAZolam 0.25 MG TAB PO PRN (09:50)
--- NOTE | 2016-11-29 10:37 | HHI.PR ---
Subjective Remarks Ambulating in [place], nausea improved, feels able to do the fluid restriction but will be hard. Objective Vitals Vital Signs Date Time Temp Pulse Resp B/P (MAP) Pulse Ox O2 Delivery O2 Flow Rate FiO2 11/29/16 08:00 97.0 72 16 122/79 (93) 99 11/29/16 00:00 96.0 69 16 122/70 (87) 96 11/28/16 20:00 95.0 66 16 145/79 (101) 100 11/28/16 16:00 98.3 74 20 128/79 (95) 98 11/28/16 12:00 98.5 76 20 122/79 (93) 96 Result Diagram: 11/27/16 0528 11/29/16 0555 Imaging Last Impressions Chest X-Ray 11/26/16 1118 Signed Impressions: Service Date/Time: Saturday, November 26, 2016 11:20 - CONCLUSION: Right upper lobe density, CT chest recommended.. Francisco Hair MD Chest CT 11/26/16 0000 Signed Impressions: Service Date/Time: Saturday, November 26, 2016 13:04 - CONCLUSION: 1. Right upper lobe mass measuring 2.4 x 1.6 cm. 2. Right suprahilar adenopathy. 3. Severe emphysema. Francisco Hair MD Last Impressions Chest X-Ray 11/26/16 1118 Signed Impressions: Service Date/Time: Saturday, November 26, 2016 11:20 - CONCLUSION: Right upper lobe density, CT chest recommended.. Francisco Hair MD Chest CT 11/26/16 0000 Signed Impressions: Service Date/Time: Saturday, November 26, 2016 13:04 - CONCLUSION: 1. Right upper lobe mass measuring 2.4 x 1.6 cm. 2. Right suprahilar adenopathy. 3. Severe emphysema. Francisco Hair MD Objective Remarks nad Lungs clear to auscultation, no ronchi or wheezes RRR no murmur +bs nontender SCDs A/P Problem List: (1) Hyponatremia ICD Codes: E87.1 - Hypo-osmolality and hyponatremia Status: Resolved Plan: sodium stable at 131 with fluid restriction will place on 1 gm sodium chloride with f/u bennett pak (2) Lung mass ICD Codes: R91.8 - Other nonspecific abnormal finding of lung field Status: Acute Plan: seen by Dr Martinez plan for outpatient ultrasound and PET scan ct scans in hospital neg aside from ct of thorax (3) Emphysema of lung ICD Codes: J43.9 - Emphysema, unspecified Plan: pulmonary emphysema on ct, PFTs ordered (4) Nicotine dependence ICD Codes: F17.200 - Nicotine dependence, unspecified, uncomplicated Status: Chronic Plan: discussed smoking cessation, so far doing ok w/o nicotine patch or other aides Assessment and Plan plan for d/c home today with close f/u with dr pak and dr martinez Problem Qualifiers (1) Emphysema of lung: Qualified Codes: J43.2 - Centrilobular emphysema (2) Nicotine dependence: Jenn Thomas MD Nov 29, 2016 10:37
[2016-11-29] MEDS ORDERED: SODI1TAB PO (10:50)
--- NOTE | 2016-11-29 10:59 | HHI.DS ---
Discharge Summary Admission Date Nov 26, 2016 at 12:46 Admitting Diagnosis Hyponatremia, Lung mass (1) Hyponatremia Diagnosis: Principal ICD Codes: E87.1 - Hypo-osmolality and hyponatremia Status: Resolved (2) Lung mass Diagnosis: Principal ICD Codes: R91.8 - Other nonspecific abnormal finding of lung field Status: Acute (3) Emphysema of lung Diagnosis: Secondary ICD Codes: J43.9 - Emphysema, unspecified (4) Nicotine dependence Diagnosis: Secondary ICD Codes: F17.200 - Nicotine dependence, unspecified, uncomplicated Status: Chronic Consultants Dr Martinez Pulmonary Dr Ayon Nephrology Brief History Patient presented to ED with weakness, fatigue, nausea and headeache. Sodium was 116 and had lung mass on xray. Admitted for correction of sodium. CBC/BMP: 11/27/16 0528 11/29/16 0555 Significant Findings Laboratory Tests Test 11/26/16 11:44 11/26/16 12:55 11/26/16 13:35 11/26/16 18:05 White Blood Count 3.5 TH/MM3 (4.0-11.0) Monocytes (%) (Auto) 12.3 % (0.0-8.0) Lymphocytes # (Auto) 0.8 TH/MM3 (1.0-4.8) Blood Urea Nitrogen 3 MG/DL (7-18) 3 MG/DL (7-18) Creatinine 0.46 MG/DL (0.50-1.00) 0.46 MG/DL (0.50-1.00) Sodium Level 116 MEQ/L (136-145) 117 MEQ/L (136-145) Chloride Level 81 MEQ/L (98-107) 84 MEQ/L (98-107) Troponin I LESS THAN 0.02 NG/ML Urine Osmolality 164 MOSM/KG (300-1300) Serum Osmolality 250 MOSM/KG (275-295) 249 MOSM/KG (275-295) Test 11/26/16 23:11 11/27/16 00:02 11/27/16 05:28 11/27/16 11:24 Sodium Level 121 MEQ/L (136-145) 122 MEQ/L (136-145) 122 MEQ/L (136-145) Urine Ketones 15 mg/dL (NEG) Urine Occult Blood TRACE (NEG) Urine Leukocyte Esterase SMALL (NEG) Urine WBC 6-8 /hpf (0-5) Urine Bacteria FEW /hpf (NONE) Red Cell Distribution Width 11.4 % (11.6-17.2) Monocytes (%) (Auto) 11.3 % (0.0-8.0) Blood Urea Nitrogen 6 MG/DL (7-18) Creatinine 0.36 MG/DL (0.50-1.00) Albumin 3.3 GM/DL (3.4-5.0) Calcium Level 8.3 MG/DL (8.5-10.1) Potassium Level 3.2 MEQ/L (3.5-5.1) Chloride Level 89 MEQ/L (98-107) Test 11/27/16 17:25 11/27/16 22:48 11/28/16 04:55 11/28/16 17:34 Sodium Level 121 MEQ/L (136-145) 123 MEQ/L (136-145) 130 MEQ/L (136-145) 131 MEQ/L (136-145) Blood Urea Nitrogen 5 MG/DL (7-18) Creatinine 0.41 MG/DL (0.50-1.00) Chloride Level 97 MEQ/L (98-107) Test 11/28/16 22:01 11/29/16 05:55 Sodium Level 131 MEQ/L (136-145) 131 MEQ/L (136-145) Creatinine 0.48 MG/DL (0.50-1.00) Chloride Level 97 MEQ/L (98-107) Imaging Last Impressions Head CT 11/27/16 0000 Signed Impressions: Service Date/Time: Sunday, November 27, 2016 18:07 - CONCLUSION: Unremarkable study except for right sphenoid sinusitis. Sunday Velez MD Abdomen/Pelvis CT 11/27/16 0000 Signed Impressions: Service Date/Time: Sunday, November 27, 2016 18:10 - CONCLUSION: Essentially unremarkable study except for atherosclerotic vascular calcifications. Sunday Velez MD Chest X-Ray 11/26/16 1118 Signed Impressions: Service Date/Time: Saturday, November 26, 2016 11:20 - CONCLUSION: Right upper lobe density, CT chest recommended.. Francisco Hair MD Chest CT 11/26/16 0000 Signed Impressions: Service Date/Time: Saturday, November 26, 2016 13:04 - CONCLUSION: 1. Right upper lobe mass measuring 2.4 x 1.6 cm. 2. Right suprahilar adenopathy. 3. Severe emphysema. Francisco Hair MD PE at Discharge nad Lungs clear to auscultation, no ronchi or wheezes RRR no murmur +bs nontender SCDs Hospital Course Patient placed on 3% NS and nephrology consult placed. Prior to presentation she had nause and emesis and had been drinking large amounts of fluid, decreased sodium possibly due to SIADH and excess fluid consumption. Sodium improved and stabilized at 131 with 3 % followed by [address] scan showed RUL lung mass and patient was seen by Dr Martinez who plans to see her as outpatient for biopsy and PET scan. She has stopped smoking . Will discharge on 1 gm sodium chloride to help improve her sodium. Pt Condition on Discharge: Stable Discharge Disposition: Discharge Home Discharge Instructions DIET: Follow Instructions for: As Tolerated, No Restrictions Fluid Restrictions: 1000 cc/day Activities you can perform: Regular-No Restrictions Follow up Referrals: PCP Follow-up - 11/30/[address] Linares Pulmonology - 1 Week with Jeremi Martinez MD New Medications: Sodium Chloride (Sodium Chloride) 1 Gm Tab 1 GM PO DAILY for Electrolyte Replacement for 30 Days, #30 TAB 0 Refills Continued Medications: Levothyroxine (Levothyroxine) 88 Mcg Tab 88 MCG PO DAILY for Thyroid, #30 TAB 0 Refills Jenn Thomas MD Nov 29, 2016 10:59
[2016-11-29] MEDS ORDERED: SODIUM CHLORIDE 1 GRAM TAB PO ONE (11:15)
--- NOTE | 2016-12-01 08:42 | RSPPFT ---
DATE OF PROCEDURE: 11/28/16 COMMENTS: Spirometry with FVC of 2.1 predicted 3.4, FEV1 of 1.6 predicted 2.7, FEV1/FVC ratio 76% predicted 78%. Post-bronchodilator FVC increases to 2.3 and FEV1 to 1.9. IMPRESSION: On the basis of the above, patient likely has a restrictive defect and a component of obstruction with responsiveness to acutely inhaled bronchodilator.
[2016-12-16] MEDS ORDERED: FOSA70TA PO (09:52)
== END 2016-11-29 12:00 | disposition home or self-care (01) | DRG 644 ==
LOC: PHED 10:06 → PHEDA 12:46 → PH3B 14:08
PROVIDERS: ADMIT Legal Medicine; ATTEND Legal Medicine
DX: E22.2 Syndrome of inappropriate secretion of antidiuretic hormone (principal); E87.1 Hypo-osmolality and hyponatremia; J43.9 Emphysema, unspecified; E03.9 Hypothyroidism, unspecified; F17.210 Nicotine dependence, cigarettes, uncomplicated; R91.8 Other nonspecific abnormal finding of lung field; R51 Headache
CPT/HCPCS: 70470; 71010; 71260; 74177; 80048; 80053; 81001; 82570; 83735; 83930; 83935; 84133; 84295; 84300; 84443; 84484; 85025; 90471; 90732; 93005; 94060; 96361; 96374; C9113; G0009; J2405; J7040; Q9963; Q9967

== ENCOUNTER → 2016-12-06 | Outpatient (CLI) | payer OTHER ==
[~2016-12-06] MED LIST changes: -CIPR500T4 PO; +DEME150T2 PO; -DICY1TAB26 PO; +FOSA70TA PO; -LEVO100T4 PO; +LEVO88TA2 PO; -METR-1 PO; +SODI1TAB PO; -ZOFR4TAB3 SL
--- NOTE | 2016-12-26 11:06 | RSPPFT ---
DATE OF PROCEDURE: 12/06/16 COMMENTS: VOLUMES DYNAMIC: FVC normal, FEV1 mildly reduced. STATIC: TLC, RV and FRC normal. FLOWS: FEV1% mildly reduced; FEF 25-75 severely reduced. DIFFUSION; Moderately reduced. FLOW VOLUME LOOP: Pattern of variable intrathoracic airways obstruction. IMPRESSION: Mild obstructive ventilatory defect with a moderate reduction in diffusion and no significant hyperinflation. No significant change post-bronchodilator.
== END ==
LOC: HRSP 08:30
PROVIDERS: ATTEND Internal Medicine
DX: R91.8 Other nonspecific abnormal finding of lung field (principal)
CPT/HCPCS: 94060; 94620; 94726; 94729

== ENCOUNTER → 2016-12-16 | Outpatient (CLI) | payer OTHER ==
[2016-12-16 10:27] LABS: HEMATOCRIT 38.8 % (35.0-46.0); MEAN CELL VOLUME 94.7 FL (80.0-100.0); MEAN CORPUSCULAR HEMOGLOBIN 32.1 PG (27.0-34.0); MEAN CORPUSCULAR HGB CONC 33.9 % (32.0-36.0); PLATELET COUNT 312 TH/MM3 (150-450); RED CELL DISTRIBUTION WIDTH 12.5 % (11.6-17.2); REVIEW FLAG FINAL; WHITE BLOOD COUNT 4.7 TH/MM3 (4.0-11.0)
[2016-12-16 10:34] LABS: APTT (PATIENT) 30.3 SEC (24.3-30.1); INTERNATIONAL NORMALIZED RATIO 0.9 RATIO; PROTHROMBIN TIME - PATIENT 10.4 SEC (9.8-11.6)
[2016-12-16 10:49] LABS: BICARBONATE 29.1 MEQ/L (21.0-32.0); POTASSIUM 4.4 MEQ/L (3.5-5.1)
--- NOTE | 2016-12-16 11:13 | EKG ---
Date Performed: 12/16/2016 Time Performed: 09:48:20 PTAGE: 56 years EKG: SINUS BRADYCARDIA WITH FIRST DEGREE AV BLOCK ABNORMAL ECG NO PREVIOUS TRACING DOCTOR: Vinay Rajput Interpretating Date/Time 12/16/2016 11:13:16
== END ==
LOC: CPRE 09:31
PROVIDERS: ATTEND Internal Medicine
DX: Z01.810 Encounter for preprocedural cardiovascular examination (principal); Z01.812 Encounter for preprocedural laboratory examination; C34.91 Malignant neoplasm of unspecified part of right bronchus or lung; R59.0 Localized enlarged lymph nodes
CPT/HCPCS: 36415; 80048; 85027; 85610; 85730; 93005

== ENCOUNTER 2016-12-26 17:37 | Inpatient (IN) | payer OTHER ==
[~2016-12-26] VITALS: Ht 167.6 cm; Wt 38.2 kg
[~2016-12-26 17:37] MED LIST changes: -DEME150T2 PO
[2016-12-26 17:40] VITALS: BP 166/77; PULSE 70; RESP 20; TEMP 97; O2SAT 97
[2016-12-26 18:10] VITALS: RESP 18; O2SAT 100
--- NOTE | 2016-12-26 18:24 | PD ---
HPI Chief Complaint: Abnormal Results Time Seen by Provider: 18:00 Travel History International Travel<30 days: No Contact w/Intl Traveler<30days: No Traveled to known affect area: No History of Present Illness HPI 56-year-old female patient presents to emergency department after being referred by her technical services representative Dr. Martinez. Dr. Martinez referred her due to significant hyponatremia. Patient is newly diagnosed with lung cancer and a biopsy was scheduled. Patient's blood work revealed hyponatremia and biopsy was delayed as a result. Patient recently had significant weight loss and has smoked 1-1/2 packs of cigarettes a day for over [address] scan was ordered as a screening tool for lung cancer. The CAT scan revealed a lemon- sized mass in the patient's right lung. Patient denies any chest pain, shortness of breath, hemoptysis, abdominal pain, nausea, vomiting or diarrhea. Patient denies any fever, chills, malaise, sore throat or runny nose. Patient states she originally thought she lost the weight due to stress because her recently underwent a liver transplant and was surprised with this CT revealed lung cancer. Patient quit smoking one month ago. PFSH Past Medical History Cancer: Yes (r lung ca) Congestive Heart Failure: No Coronary Artery Disease: No Diabetes: No Diminished Hearing: No Endocrine: Yes Glaucoma: No Hepatitis: No Hiatal Hernia: No Hypertension: No Immune Disorder: No Musculoskeletal: Yes (osteoporosis) Neurologic: No Psychiatric: No Reproductive: No Respiratory: Yes (right side mass) Thyroid Disease: Yes Tetanus Vaccination: < 5 Years Influenza Vaccination: Yes Menopausal: Yes Tubal Ligation: Yes Past Surgical History Abdominal Surgery: No AICD: No Cardiac Surgery: No Ear Surgery: No Endocrine Surgery: No Eye Surgery: No Genitourinary Surgery: No Gynecologic Surgery: Yes (TUBAL LIGATION) Joint Replacement: No Neurologic Surgery: No Oral Surgery: No Pacemaker: No Thoracic Surgery: No Other Surgery: No Social History Alcohol Use: No Tobacco Use: No Substance Use: No Allergies-Medications (Allergen,Severity, Reaction): Coded Allergies: No Known Allergies (Verified , 12/26/16) Reported Meds & Prescriptions Reported Meds & Active Scripts Active Sodium Chloride 1 Gm Tab 1 Gm PO DAILY 30 Days Reported Fosamax (Alendronate Sodium) 70 Mg Tab 70 Mg PO Q7D Levothyroxine (Levothyroxine Sodium) 88 Mcg Tab 88 Mcg PO DAILY Review of Systems Except as stated in HPI: all other systems reviewed are Neg Physical Exam Narrative GENERAL: 56-year-old thin female in no acute distress. SKIN: Focused skin assessment warm/dry. HEAD: Atraumatic. Normocephalic. EYES: Pupils equal and round. No scleral icterus. No injection or drainage. ENT: No nasal bleeding or discharge. Mucous membranes pink and moist. NECK: Trachea midline. No JVD. CARDIOVASCULAR: Regular rate and rhythm. No murmur appreciated. RESPIRATORY: No accessory muscle use. Clear to auscultation. Breath sounds diminished on the right. GASTROINTESTINAL: Abdomen soft, non-tender, nondistended. Hepatic and splenic margins not palpable. MUSCULOSKELETAL: No obvious deformities. No clubbing. No cyanosis. No edema. NEUROLOGICAL: Awake and alert. No obvious cranial nerve deficits. Motor grossly within normal limits. Normal speech. PSYCHIATRIC: Appropriate mood and affect; insight and judgment normal. Data Data Last Documented VS Vital Signs Date Time Temp Pulse Resp B/P (MAP) Pulse Ox O2 Delivery O2 Flow Rate FiO2 12/26/16 19:07 73 22 129/71 (90) 100 Room Air 12/26/16 17:40 97.0 Orders Orders Basic Metabolic Panel (Bmp) (12/26/16 18:06) Complete Blood Count With Diff (12/26/16 18:06) Prothrombin Time / Inr (Pt) (12/26/16 18:06) Act Partial Throm Time (Ptt) (12/26/16 18:06) Iv Access Insert/Monitor (12/26/16 18:06) Oximetry (12/26/16 18:06) Sodium Chlor 0.9% 1000 Ml Inj (Ns 1000 M (12/26/16 20:00) Admit Order (Ed Use Only) (12/26/16 20:02) Labs Laboratory Tests Test 12/26/16 18:00 White Blood Count 4.8 TH/MM3 Red Blood Count 4.15 MIL/MM3 Hemoglobin 13.8 GM/DL Hematocrit 37.7 % Mean Corpuscular Volume 90.9 FL Mean Corpuscular Hemoglobin 33.3 PG Mean Corpuscular Hemoglobin Concent 36.6 % Red Cell Distribution Width 12.1 % Platelet Count 241 TH/MM3 Mean Platelet Volume 8.0 FL Neutrophils (%) (Auto) 56.8 % Lymphocytes (%) (Auto) 23.4 % Monocytes (%) (Auto) 18.9 % Eosinophils (%) (Auto) 0.6 % Basophils (%) (Auto) 0.3 % Neutrophils # (Auto) 2.7 TH/MM3 Lymphocytes # (Auto) 1.1 TH/MM3 Monocytes # (Auto) 0.9 TH/MM3 Eosinophils # (Auto) 0.0 TH/MM3 Basophils # (Auto) 0.0 TH/MM3 CBC Comment AUTO DIFF Differential Comment AUTO DIFF CONFIRMED Platelet Estimate NORMAL Platelet Morphology Comment NORMAL Red Cell Morphology Comment NORMAL Prothrombin Time 11.0 SEC Prothromb Time International Ratio 1.0 RATIO Activated Partial Thromboplast Time 32.6 SEC Blood Urea Nitrogen 5 MG/DL Creatinine 0.48 MG/DL Random Glucose 80 MG/DL Calcium Level 8.7 MG/DL Sodium Level 113 MEQ/L Potassium Level 3.2 MEQ/L Chloride Level 76 MEQ/L Carbon Dioxide Level 28.8 MEQ/L Anion Gap 8 MEQ/L Estimat Glomerular Filtration Rate 133 ML/MIN MDM Medical Decision Making Medical Screen Exam Complete: Yes Emergency Medical Condition: Yes Medical Record Reviewed: Yes Differential Diagnosis Hyponatremia versus electrolyte abnormality versus medical clearance for biopsy versus pseudohyponatremia versus hypovolemic hyponatremia Narrative Course 56-year-old female that appears thin presents to the emergency department for evaluation of hyponatremia after being referred by Dr. Martinez her technical services representative. Patient is scheduled to have a biopsy of a mass that was newly discovered on screening CAT scan in her right lung. Patient states the mass is approximately the size of a lemon. The preprocedure blood work revealed severe hyponatremia. The patient was referred to the emergency department for treatment. Dr. Martinez would like the patient treated for the hyponatremia and admitted for the biopsy. The patient denies any chest pain, shortness breath, hemoptysis, abdominal pain, nausea, vomiting, diarrhea, fever, chills or malaise. CBC, BMP , PT INR ordered and pending. CBC shows no acute abnormalities, BMP reveals critically low sodium at 113, slightly decreased potassium at 3.2, slightly decreased chloride at 76 and slightly impaired renal function otherwise no acute abnormalities, PT/INR elevated APTT at 32.6 otherwise no acute abnormalities. Dr. Barnett paged crester for admission. Patient will be admitted to the crester for treatment of hyponatremia. Diagnosis Primary Impression: Hyponatremia Admitting Information Admitting Physician Requests: Admit Nehal Vidal Dec 26, 2016 18:24
[2016-12-26 18:25] LABS: AUTOMATED NEUTROPHIL # 2.7 TH/MM3 (1.8-7.7); BASOPHIL % 0.3 % (0.0-2.0); EOSINOPHIL % 0.6 % (0.0-4.0); HEMATOCRIT 37.7 % (35.0-46.0); LYMPH % 23.4 % (9.0-44.0); LYMPHOCYTE # 1.1 TH/MM3 (1.0-4.8); MEAN CELL VOLUME 90.9 FL (80.0-100.0); MEAN CORPUSCULAR HEMOGLOBIN 33.3 PG (27.0-34.0); MONO % 18.9 % (0.0-8.0); NEUT % 56.8 % (16.0-70.0); PLATELET COUNT 241 TH/MM3 (150-450); RED BLOOD COUNT 4.15 MIL/MM3 (4.00-5.30); RED CELL DISTRIBUTION WIDTH 12.1 % (11.6-17.2); WHITE BLOOD COUNT 4.8 TH/MM3 (4.0-11.0)
[2016-12-26 18:27] LABS: HEMO FLAGS AUTO DIFF; MEAN CORPUSCULAR HGB CONC 36.6 % (32.0-36.0)
[2016-12-26 18:37] LABS: APTT (PATIENT) 32.6 SEC (24.3-30.1)
[2016-12-26 19:07] VITALS: BP 129/71; PULSE 73; RESP 22; O2SAT 100
[2016-12-26 19:25] LABS: BICARBONATE 28.8 MEQ/L (21.0-32.0); POTASSIUM 3.2 MEQ/L (3.5-5.1)
[2016-12-26 19:42] LABS: PLATELET ESTIMATE SMEAR NORMAL (NORMAL); PLATELET MORPHOLOGY NORMAL (NORMAL); SCAN/DIFF AUTO DIFF CONFIRMED
[2016-12-26] MEDS ORDERED: SODIUM CHLOR 0.9% 1000 ML INJ 1,000 ML IV ONE (20:00)
--- NOTE | 2016-12-26 20:02 | PD ---
Physical Exam Date Seen by Provider: Dec 26, 2016 Data Data Last Documented VS Vital Signs Date Time Temp Pulse Resp B/P (MAP) Pulse Ox O2 Delivery O2 Flow Rate FiO2 12/26/16 19:07 73 22 129/71 (90) 100 Room Air 12/26/16 17:40 97.0 Orders Orders Basic Metabolic Panel (Bmp) (12/26/16 18:06) Complete Blood Count With Diff (12/26/16 18:06) Prothrombin Time / Inr (Pt) (12/26/16 18:06) Act Partial Throm Time (Ptt) (12/26/16 18:06) Iv Access Insert/Monitor (12/26/16 18:06) Oximetry (12/26/16 18:06) Ns (Bolus) Inj (12/26/16 20:00) Labs Laboratory Tests Test 12/26/16 18:00 White Blood Count 4.8 TH/MM3 Red Blood Count 4.15 MIL/MM3 Hemoglobin 13.8 GM/DL Hematocrit 37.7 % Mean Corpuscular Volume 90.9 FL Mean Corpuscular Hemoglobin 33.3 PG Mean Corpuscular Hemoglobin Concent 36.6 % Red Cell Distribution Width 12.1 % Platelet Count 241 TH/MM3 Mean Platelet Volume 8.0 FL Neutrophils (%) (Auto) 56.8 % Lymphocytes (%) (Auto) 23.4 % Monocytes (%) (Auto) 18.9 % Eosinophils (%) (Auto) 0.6 % Basophils (%) (Auto) 0.3 % Neutrophils # (Auto) 2.7 TH/MM3 Lymphocytes # (Auto) 1.1 TH/MM3 Monocytes # (Auto) 0.9 TH/MM3 Eosinophils # (Auto) 0.0 TH/MM3 Basophils # (Auto) 0.0 TH/MM3 CBC Comment AUTO DIFF Differential Comment AUTO DIFF CONFIRMED Platelet Estimate NORMAL Platelet Morphology Comment NORMAL Red Cell Morphology Comment NORMAL Prothrombin Time 11.0 SEC Prothromb Time International Ratio 1.0 RATIO Activated Partial Thromboplast Time 32.6 SEC Blood Urea Nitrogen 5 MG/DL Creatinine 0.48 MG/DL Random Glucose 80 MG/DL Calcium Level 8.7 MG/DL Sodium Level 113 MEQ/L Potassium Level 3.2 MEQ/L Chloride Level 76 MEQ/L Carbon Dioxide Level 28.8 MEQ/L Anion Gap 8 MEQ/L Estimat Glomerular Filtration Rate 133 ML/MIN [facility] Medical Record Reviewed: Yes Supervised Visit with MISHA: Yes Interpretation(s) Vital Signs Date Time Temp Pulse Resp B/P (MAP) Pulse Ox O2 Delivery O2 Flow Rate FiO2 12/26/16 19:07 73 22 129/71 (90) 100 Room Air 12/26/16 18:10 18 100 Room Air 12/26/16 18:01 65 18 100 Room Air 12/26/16 17:40 97.0 70 20 166/77 (106) 97 Room Air CBC & BMP Diagram 12/26/16 18:00 Calcium Level 8.7 Narrative Course I, Dr. Barnett, have reviewed the advance practice practitioner's documentation and am in agreement, met with the patient face to face, made the diagnosis, and the medical decision making was done by me. *My assessment and Findings: Patient is a 56-year-old female who presents to emergency room for evaluation of hyponatremia. Patient has history of right lung cancer, she is being followed by Dr. anglin. Patient reports that she was due for a biopsy tomorrow, she went for her screening labs today and it was found that she was hyponatremic. Dr. Campos anglin recommended that patient come directly to the emergency room for treatment of hyponatremia. Patient reports that she has no complaints at this time. Reports that she has been eating and drinking like her normal self. Denies weakness at this time. Patient sodium is 113 in the ER. Patient will require admission for treatment for hyponatremia Case reviewed with Dr. Jacome who accepts patient to service Critical Care Narrative Aggregate critical care time was 30 minutes. Time to perform other separately billable procedures was not included in the critical care time. My time did not include minutes spent treating any other patients simultaneously or on activities that did not directly contribute to the patient's treatment. The services I provided to this patient were to treat and/or prevent clinically significant deterioration that could result in: , decompensation, deterioration I provided critical care services requiring my management, as noted below: Chart data review, documentation time, medication orders and management, vital sign assessments/reviewing monitor data, ordering and reviewing lab tests, ordering and interpreting/reviewing x-rays and diagnostic studies, care of the patient and discussion of the patient with the admitting physicians. Diagnosis Primary Impression: Hyponatremia Admitting Information Admitting Physician Requests: Tania Mcgee DO Dec 26, 2016 20:02
[2016-12-26] MEDS ORDERED: MORPHINE SULFATE 4 MG/ML INJ IV PUSH PRN (21:15)
[2016-12-26] MEDS ORDERED: CHLORHEXIDINE GLUCONATE 2 % 1 PACK (2 CLOTHS) TOP PRN (21:15)
[2016-12-26] MEDS ORDERED: LACTULOSE SYRUP 20 GM/30 ML CUP PO PRN (21:15)
[2016-12-26] MEDS ORDERED: RESP: ALBUTEROL 2.5 MG/IPRATROPIUM 0.5 MG NEB (PRN) INH (21:15)
[2016-12-26] MEDS ORDERED: SENNOSIDES 8.6 MG TAB PO PRN (21:15)
[2016-12-26] MEDS ORDERED: ALENDRONATE SODIUM 70 MG TAB PO SCH (21:15)
[2016-12-26] MEDS ORDERED: ZOLPIDEM TARTRATE 5 MG TAB PO PRN (21:15)
[2016-12-26] MEDS ORDERED: BISACODYL 10 MG SUPP RECTAL PRN (21:15)
[2016-12-26] MEDS ORDERED: SODIUM CHLORIDE 0.9% FLUSH 10 ML FLUSH PRN (21:15)
[2016-12-26] MEDS ORDERED: MISCELLANEOUS NURSING INFORMATION XX SCH (21:15)
[2016-12-26] MEDS ORDERED: MAGNESIUM HYDROXIDE SUSP 30 ML CUP PO PRN (21:15)
--- NOTE | 2016-12-26 21:18 | HHI.HP ---
[facility] Service Critical Care Medicine Primary Care Physician Gilberto Linares M.D. Admission Diagnosis Hyponatremia Diagnosis: Travel History International Travel<30 Days: No Contact w/Intl Traveler <30 Da: No Traveled to Known Affected Are: No History of Present Illness 56-year-old female patient presents after being referred by her mud analysis operator Dr. Martinez due to significant hyponatremia. Patient is newly diagnosed with lung nodule and a biopsy was scheduled. Patient's blood work revealed severe hyponatremia and biopsy was thus delayed as a result. Patient recently had significant weight loss and has smoked 1-1/2 packs of cigarettes a day for over [address] scan was ordered as a screening tool for lung cancer. The CAT scan revealed a lemon-sized mass in the patient's right lung. Patient denies any chest pain, shortness of breath, hemoptysis, abdominal pain, nausea, vomiting or diarrhea. Patient states she originally thought she lost the weight due to stress because her recently underwent a liver transplant and she was very surprised with this CT revealed lung mass. Patient quit smoking one month ago. Review of Systems Constitutional: COMPLAINS OF: Weight loss, DENIES: Diaphoretic episodes, Fatigue, Fever, Weight gain, Chills, Dizziness, Change in appetite, Night Sweats Endocrine: DENIES: Abnorml menstrual pattern, Heat/cold intolerance, Polydipsia , Polyuria, Polyphagia Eyes: DENIES: Blurred vision, Diplopia, Eye inflammation, Eye pain, Vision loss , Photosensitivity, Double Vision Ears, nose, mouth, throat: DENIES: Tinnitus, Hearing loss, Vertigo, Nasal discharge, Oral lesions, Throat pain, Hoarseness, Ear Pain, Running Nose, Epistaxis, Sinus Pain, Toothache, Odynophagia Respiratory: DENIES: Apneas, Cough, Snoring, Wheezing, Hemoptysis, Sputum production, Shortness of breath Cardiovascular: DENIES: Chest pain, Palpitations, Syncope, Dyspnea on Exertion , PND, Lower Extremity Edema, Orthopnea, Claudication Gastrointestinal: DENIES: Abdominal pain, Black stools, Bloody stools, Constipation, Diarrhea, Nausea, Vomiting, Difficulty Swallowing, Anorexia Genitourinary: DENIES: Abnormal vaginal bleeding, Dysmenorrhea, Dyspareunia, Sexual dysfunction, Urinary frequency, Urinary incontinence, Urgency, Hematuria , Dysuria, Nocturia, Vaginal discharge Musculoskeletal: DENIES: Joint pain, Muscle aches, Stiffness, Joint Swelling, Back pain, Neck pain Integumentary: DENIES: Abnormal pigmentation, Pruritus, Rash, Nail changes, Breast masses, Breast skin changes, Nipple discharge Hematologic/lymphatic: DENIES: Bruising, Lymphadenopathy Immunologic/allergic: DENIES: Eczema, Urticaria Neurologic: DENIES: Abnormal gait, Headache, Localized weakness, Paresthesias, Seizures, Speech Problems, Tremor, Poor Balance Psychiatric: DENIES: Anxiety, Confusion, Mood changes, Depression, Hallucinations, Agitation, Suicidal Ideation, Homicidal Ideation, Delusions Past Family Social History Allergies: Coded Allergies: No Known Allergies (Verified , 12/26/16) Past Medical History Hypothyroidism Past Surgical History Tubal ligation Reported Medications Reported Meds & Active Scripts Active Sodium Chloride 1 Gm Tab 1 Gm PO DAILY 30 Days Reported Fosamax (Alendronate Sodium) 70 Mg Tab 70 Mg PO Q7D Levothyroxine (Levothyroxine Sodium) 88 Mcg Tab 88 Mcg PO DAILY Active Ordered Medications Current Medications Medications (Trade) Dose Ordered Sig/Sukhdev Route PRN Reason Start Time Stop Time Status Last Admin Dose Admin Levothyroxine Sodium (Synthroid) 88 mcg DAILY@0600 PO 12/27/16 06:00 Sodium Chloride (Sodium Chloride) 1 gm DAILY PO 12/27/16 09:00 Family History No family history significant for early coronary artery disease, positive for diabetes Social History Smokes pack per day for last 30 years, quit few days ago No history of alcohol or illicit drug abuse Physical Exam Vital Signs Vital Signs Date Time Temp Pulse Resp B/P (MAP) Pulse Ox O2 Delivery O2 Flow Rate FiO2 12/26/16 19:07 73 22 129/71 (90) 100 Room Air 12/26/16 18:10 18 100 Room Air 12/26/16 18:01 65 18 100 Room Air 12/26/16 17:40 97.0 70 20 166/77 (106) 97 Room Air Physical Exam GENERAL: Well-nourished, well-developed patient. SKIN: Warm and dry. HEAD: Normocephalic. EYES: No scleral icterus. No injection or drainage. NECK: Supple, trachea midline. No JVD or lymphadenopathy. CARDIOVASCULAR: Regular rate and rhythm without murmurs, gallops, or rubs. RESPIRATORY: Breath sounds equal bilaterally. No accessory muscle use. GASTROINTESTINAL: Abdomen soft, non-tender, nondistended. MUSCULOSKELETAL: No cyanosis, or edema. BACK: Nontender without obvious deformity. NEURO EXAM: GCS: M 6 V 5 E 4 Mental Status: The patient is alert and oriented to person, place, and time with normal speech. Cranial Nerves: Visual acuity intact bilaterally. Visual snider normal in all quadrants. Pupils are round, reactive to light. Extraocular movements are intact without ptosis. Hearing is normal bilaterally. Voice is normal. Tongue protrudes midline and moves symmetrically. Reflexes: Biceps, patellar, and Achilles are 2/4 bilaterally. No clonus. Laboratory Laboratory Tests Test 12/26/16 18:00 White Blood Count 4.8 Red Blood Count 4.15 Hemoglobin 13.8 Hematocrit 37.7 Mean Corpuscular Volume 90.9 Mean Corpuscular Hemoglobin 33.3 Mean Corpuscular Hemoglobin Concent 36.6 Red Cell Distribution Width 12.1 Platelet Count 241 Mean Platelet Volume 8.0 Neutrophils (%) (Auto) 56.8 Lymphocytes (%) (Auto) 23.4 Monocytes (%) (Auto) 18.9 Eosinophils (%) (Auto) 0.6 Basophils (%) (Auto) 0.3 Neutrophils # (Auto) 2.7 Lymphocytes # (Auto) 1.1 Monocytes # (Auto) 0.9 Eosinophils # (Auto) 0.0 Basophils # (Auto) 0.0 CBC Comment AUTO DIFF Differential Comment AUTO DIFF CONFIRMED Platelet Estimate NORMAL Platelet Morphology Comment NORMAL Red Cell Morphology Comment NORMAL Prothrombin Time 11.0 Prothromb Time International Ratio 1.0 Activated Partial Thromboplast Time 32.6 Blood Urea Nitrogen 5 Creatinine 0.48 Random Glucose 80 Calcium Level 8.7 Sodium Level 113 Potassium Level 3.2 Chloride Level 76 Carbon Dioxide Level 28.8 Anion Gap 8 Estimat Glomerular Filtration Rate 133 Result Diagram: 12/26/16 1800 12/26/16 1800 Caprini VTE Risk Assessment Caprini VTE Risk Assessment: Mod/High Risk (score >= 2) Caprini Risk Assessment Model Point Value = 1 Point Value = 2 Point Value = 3 Point Value = 5 Age 41-60 Minor surgery BMI > 25 kg/m2 Swollen legs Varicose veins or History of unexplained or recurrent spontaneous Oral contraceptives or hormone replacement Sepsis (< 1 month) Serious lung disease, including pneumonia (< 1 month) Abnormal pulmonary function Acute myocardial infarction Congestive heart failure (< 1 month) History of inflammatory bowel disease Medical patient at bed rest Age 61-74 Arthroscopic surgery Major open surgery (> 45 min) Laparoscopic surgery (> 45 min) Malignancy Confined to bed (> 72 hours) Immobilizing plaster cast Central venous access Age >= 75 History of VTE Family history of VTE Factor V Leiden Prothrombin [id number] Lupus anticoagulant Anticardiolipin antibodies Elevated serum homocysteine Heparin-induced thrombocytopenia Other congenital or acquired thrombophilia Stroke (< 1 month) Elective arthroplasty Hip, pelvis, or leg fracture Acute spinal cord injury (< 1 month) Prophylaxis Regimen Total Risk Factor Score Risk Level Prophylaxis Regimen 0-1 Low Early ambulation 2 Moderate Order ONE of the following: *Sequential Compression Device (SCD) *Heparin 5000 units SQ BID 3-4 Higher Order ONE of the following medications: *Heparin 5000 units SQ TID *Enoxaparin/Lovenox 40 mg SQ daily (WT < 150 kg, CrCl > 30 mL/min) *Enoxaparin/Lovenox 30 mg SQ daily (WT < 150 kg, CrCl > 10-29 mL/min) *Enoxaparin/Lovenox 30 mg SQ BID (WT < 150 kg, CrCl > 30 mL/min) AND/OR *Sequential Compression Device (SCD) 5 or more Highest Order ONE of the following medications: *Heparin 5000 units SQ TID (Preferred with Epidurals) *Enoxaparin/Lovenox 40 mg SQ daily (WT < 150 kg, CrCl > 30 mL/min) *Enoxaparin/Lovenox 30 mg SQ daily (WT < 150 kg, CrCl > 10-29 mL/min) *Enoxaparin/Lovenox 30 mg SQ BID (WT < 150 kg, CrCl > 30 mL/min) AND *Sequential Compression Device (SCD) Assessment and Plan Assessment and Plan Severe Hyponatremia - Appears to be chronic - Asymptomatic - Suspected underlying pulmonary malignancy - Normal saline - Monitor trend - Sodium chloride by mouth Lung mass - Pulmonary Dr. martinez following Emphysema - DuoNeb's when necessary Hypothyroidism - Levothyroxine DVT GI prophylaxis - Teds SCDs, subcutaneous heparin - Pepcid Critical Care: The total critical care time was 35 minutes. Time to perform other separately billable procedures was not included in the critical care time. Elvis Jacome MD Dec 26, 2016 9:18 pm
[2016-12-26] MEDS: SODIUM CHLOR 0.9% 1000 ML INJ 1,000 ML IV SCH (21:47)
[2016-12-26] MEDS: HEPARIN SODIUM - SQ 10,000 UNITS/ML VIAL SQ SCH (21:48)
[2016-12-26 23:10] VITALS: BP 145/70; PULSE 72; RESP 18; O2SAT 99
[2016-12-27] VITALS (13 sets, daily range): BP systolic 134–152; BP diastolic 63–81; PULSE 62–88; RESP 15–26; TEMP 97.7–98; O2SAT 98–100
[2016-12-27] MEDS: ACETAMINOPHEN 325 MG TAB PO PRN ×2 (00:17→17:44)
[2016-12-27] MEDS: CHLORHEXIDINE GLUCONATE 2 % 1 PACK (2 CLOTHS) TOP SCH (04:00)
[2016-12-27] MEDS: HEPARIN SODIUM - SQ 10,000 UNITS/ML VIAL SQ SCH ×3 (05:46→23:43)
[2016-12-27] MEDS: SODIUM CHLOR 0.9% 1000 ML INJ 1,000 ML IV SCH (05:47)
[2016-12-27 05:50] LABS: AUTOMATED NEUTROPHIL # 1.8 TH/MM3 (1.8-7.7); BASOPHIL % 0.4 % (0.0-2.0); EOSINOPHIL % 0.6 % (0.0-4.0); HEMATOCRIT 36.6 % (35.0-46.0); HEMO FLAGS DIFF FINAL; LYMPH % 26.3 % (9.0-44.0); LYMPHOCYTE # 0.9 TH/MM3 (1.0-4.8); MEAN CELL VOLUME 91.6 FL (80.0-100.0); MEAN CORPUSCULAR HEMOGLOBIN 32.1 PG (27.0-34.0); MONO % 17.9 % (0.0-8.0); NEUT % 54.8 % (16.0-70.0); PLATELET COUNT 228 TH/MM3 (150-450); WHITE BLOOD COUNT 3.4 TH/MM3 (4.0-11.0)
[2016-12-27 06:20] LABS: ALKALINE PHOSPHATASE 86 U/L (45-117); ALT (GPT) 30 U/L (10-53); ANION GAP 7 MEQ/L (5-15); AST (GOT) 31 U/L (15-37); BICARBONATE 25.7 MEQ/L (21.0-32.0); BLOOD UREA NITROGEN 4 MG/DL (7-18); CHLORIDE 88 MEQ/L (98-107); GLOMERULAR FILTRATION RATE 159 ML/MIN (>89); MAGNESIUM 1.9 MG/DL (1.5-2.5); TOTAL BILIRUBIN ADULT 0.8 MG/DL (0.2-1.0)
[2016-12-27 06:23] LABS: SODIUM (NA) 121 MEQ/L (136-145)
[2016-12-27] MEDS: SODIUM CHLORIDE 0.9% FLUSH 10 ML FLUSH SCH ×2 (08:45→21:00)
[2016-12-27] MEDS: LEVOTHYROXINE SODIUM 88 MCG TAB PO SCH (08:45)
[2016-12-27] MEDS: DOCUSATE SODIUM 50 MG/SENNA 8.6 MG TAB PO SCH ×2 (08:46→21:00)
[2016-12-27] MEDS ORDERED: SODIUM CHLORIDE 1 GRAM TAB PO SCH (09:00)
--- NOTE | 2016-12-27 15:01 | HHI.CCPN ---
Subjective Remarks/Hospital Course Hospital Course: 56-year-old female patient presents after being referred by her complaint manager Dr. Martinez due to significant hyponatremia. Patient is newly diagnosed with lung nodule and a biopsy was scheduled. Patient's blood work revealed severe hyponatremia and biopsy was thus delayed as a result. Patient recently had significant weight loss and has smoked 1-1/2 packs of cigarettes a day for over [address] scan was ordered as a screening tool for lung cancer. The CAT scan revealed a lemon-sized mass in the patient's right lung. Patient denies any chest pain, shortness of breath, hemoptysis, abdominal pain, nausea, vomiting or diarrhea. Patient states she originally thought she lost the weight due to stress because her recently underwent a liver transplant and she was very surprised with this CT revealed lung mass. Patient quit smoking one month ago. subjective: 12/27: sodium rising quickly. have discontinued iv nacl infusion. patient without complaints. ROS negative. she feels good. I discussed her care with Dr. Martinez: her baseline Na at home is usually 123 - 125 chronically. He feels that she is stable to transfer to floor. Objective Vital Signs Date Time Temp Pulse Resp B/P (MAP) Pulse Ox O2 Delivery O2 Flow Rate FiO2 12/27/16 14:00 88 12/27/16 08:00 98.0 26 141/70 (93) 99 12/27/16 07:00 Room Air Intake and Output 12/27/16 12/27/16 12/28/16 08:00 16:00 00:00 Intake Total 1000 ml 470 ml Output Total 0 ml Balance 1000 ml 470 ml Result Diagram: 12/27/16 0435 12/27/16 1339 Objective Remarks GENERAL: Gaunt female, lying in bed. SKIN: Warm and dry. HEAD: Normocephalic. EYES: No scleral icterus. No injection or drainage. NECK: trachea midline. No JVD CARDIOVASCULAR: Regular rate and rhythm RESPIRATORY: equal chest rise, unlabored respirations. No accessory muscle use. GASTROINTESTINAL: Abdomen soft, non-tender, nondistended. MUSCULOSKELETAL: No cyanosis, or edema. NEURO EXAM: RASS 0. CAM -. no focal deficits. 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 Martinez. Will transfer to floor with hospitalist service following. Initially I discontinued her mivf due to rapid correction of serum sodium, but Dr. Martinez and I both agree she appears slightly dehydrated on clinical exam still, and we have discussed that possibly low dose saline infusion around 42cc/hr may not rapidly correct her sodium, and may help treat dehydration. will continue serial sodiums in case her sodium continues to drift back down, particularly while giving IVF to suspected SIADH, though clinically she appears much more dry than one would expect from SIADH alone. Severe Hyponatremia - Appears to be chronic - Asymptomatic - Suspected underlying pulmonary malignancy - Normal saline at 42cc/hr. - Monitor trend Lung mass - Pulmonary Dr. martinez following - plan for biopsy Emphysema - DuoNeb's when necessary Hypothyroidism - Levothyroxine DVT GI prophylaxis - Teds SCDs, subcutaneous heparin - Pepcid Dispo: stable for transfer to floor with hospitalist services following. Brian Cedeno MD Dec 27, 2016 15:01
[2016-12-27] MEDS ORDERED: IOHEXOL 350 MG/ML 10 ML VIAL (for RAD DIAG) IVCONTRAST ONE (17:28)
--- NOTE | 2016-12-27 17:41 | RADRPT ---
EXAM DATE/TIME: 12/27/2016 17:23 [facility] COMPARISON: No previous studies available for comparison. INDICATIONS : Hyponatremia, history of lung cancer. IV CONTRAST: 75 cc Omnipaque 350 (iohexol) IV RADIATION DOSE: 3.31 CTDIvol (mGy) MEDICAL HISTORY : Hypothyroidism. Carcinoma, lung. SURGICAL HISTORY : Tubal ligation. ENCOUNTER: Initial ACUITY: 1 day PAIN SCALE: 0 LOCATION: chest TECHNIQUE: Volumetric scanning of the chest was performed. Using automated exposure control and adjustment of t he mA and/or kV according to patient size, radiation dose was kept as low as reasonably achievable to obtain optimal diagnostic quality images. DICOM format image data is available electronically for review and comparison. Follow-up recommendations for detected pulmonary nodules are based at a minimum on nodule size and pa tient risk factors according to Fleischner Society Guidelines. FINDINGS: No filling defects to suggest pulmonary embolic disease. Patient has a known right lung mass measures 3.3 x 1.8 cm on today's exam compared with previous measurement of 2.4 x 1.6 cm in November 26. There is also right hilar adenopathy measuring up to 2.8 cm compared with previous measurement of 2.3 cm. His underlying moderate centrilobular emphysema. No pleural or pericardial effusion. No acute finding s in the upper abdomen. No acute bony abnormalities. CONCLUSION: 1. Increase in size of right lung mass and right hilar adenopathy since November 26. Negative for pulmo nary embolus. Guicho Eubanks MD on December 27, 2016 at 17:33 Board Certified Radiologist. This report was verified electronically.
[2016-12-27] MEDS ORDERED: SODIUM CHLOR 0.9% 1000 ML INJ 1,000 ML IV SCH (18:00)
[2016-12-28] VITALS (12 sets, daily range): BP systolic 131–156; BP diastolic 71–85; PULSE 64–93; RESP 17–43; TEMP 97.6–98.9; O2SAT 97–99
[2016-12-28] MEDS: CHLORHEXIDINE GLUCONATE 2 % 1 PACK (2 CLOTHS) TOP SCH (04:00)
[2016-12-28] MEDS: LEVOTHYROXINE SODIUM 88 MCG TAB PO SCH (05:14)
[2016-12-28] MEDS: HEPARIN SODIUM - SQ 10,000 UNITS/ML VIAL SQ SCH ×3 (05:15→21:41)
[2016-12-28 05:18] LABS: HEMATOCRIT 39.1 % (35.0-46.0); MEAN CELL VOLUME 92.4 FL (80.0-100.0); MEAN CORPUSCULAR HEMOGLOBIN 31.8 PG (27.0-34.0); MEAN CORPUSCULAR HGB CONC 34.4 % (32.0-36.0); PLATELET COUNT 221 TH/MM3 (150-450); RED BLOOD COUNT 4.23 MIL/MM3 (4.00-5.30); RED CELL DISTRIBUTION WIDTH 12.5 % (11.6-17.2); REVIEW FLAG FINAL; WHITE BLOOD COUNT 5.8 TH/MM3 (4.0-11.0)
[2016-12-28 05:40] LABS: BICARBONATE 25.5 MEQ/L (21.0-32.0)
[2016-12-28 05:45] LABS: POTASSIUM 2.9 MEQ/L (3.5-5.1)
[2016-12-28] MEDS ORDERED: POTASSIUM PHOSPHATE INJ 30 MMOL in SODIUM CHLOR 0.9% 250 ML INJ 250 ML IV PRN (06:00)
[2016-12-28] MEDS ORDERED: POTASSIUM CHLORIDE 25 MEQ EFFERVESCENT TAB PO PRN (06:00)
[2016-12-28] MEDS ORDERED: MAGNESIUM OXIDE 400 MG TAB PO PRN (06:00)
[2016-12-28] MEDS ORDERED: MAGNESIUM SULFATE INJ 4 GM in SODIUM CHLORIDE 0.9% INJ 92 ML IV PRN (06:00)
[2016-12-28] MEDS ORDERED: POTASSIUM PHOSPHATE MONOBASIC 500 MG TAB PO/TUBE PRN (06:00)
[2016-12-28] MEDS ORDERED: MAGNESIUM SULFATE INJ 2 GM in SODIUM CHLORIDE 0.9% INJ 96 ML IV PRN (06:00)
[2016-12-28] MEDS ORDERED: POTASSIUM CHLOR 40 MEQ PREMIX 100 ML IV PRN ×2 (06:00)
[2016-12-28] MEDS ORDERED: SODIUM PHOSPHATE INJ 30 MMOL in SODIUM CHLOR 0.9% 250 ML INJ 240 ML IV PRN (06:00)
[2016-12-28] MEDS ORDERED: POTASSIUM PHOSPHATE MONOBASIC 500 MG TAB PO PRN (06:00)
[2016-12-28] MEDS ORDERED: POTASSIUM CHLOR 20 MEQ PREMIX 100 ML IV PRN ×2 (06:00)
[2016-12-28] MEDS: ACETAMINOPHEN 325 MG TAB PO PRN ×2 (08:35→21:41)
[2016-12-28] MEDS: POTASSIUM CHLORIDE 20 MEQ CONTROLLED RELEASE TAB PO SCH ×3 (08:39→16:00)
--- NOTE | 2016-12-28 08:39 | HHI.PR ---
Subjective Remarks no confusion. eating well. ambulating in hallway Objective Vitals heart reg lung cta abd s/nt ext no edema Vital Signs Date Time Temp Pulse Resp B/P (MAP) Pulse Ox O2 Delivery O2 Flow Rate FiO2 12/28/16 06:00 75 12/28/16 04:00 64 12/28/16 02:00 90 12/28/16 00:00 76 43 137/76 (96) 98 12/28/16 00:00 76 12/27/16 22:00 73 12/27/16 20:00 72 12/27/16 20:00 97.8 72 23 147/73 (97) 98 12/27/16 19:00 Room Air 12/27/16 18:00 80 12/27/16 16:00 71 12/27/16 16:00 97.8 73 15 140/81 (100) 100 12/27/16 14:00 88 12/27/16 12:00 98.0 73 16 152/79 (103) 98 12/27/16 12:00 85 12/27/16 10:00 83 Result Diagram: 12/28/16 0446 12/28/16 0446 A/P Problem List: (1) Lung mass ICD Codes: R91.8 - Other nonspecific abnormal finding of lung field Status: Acute Plan: 1. right lung mass. concern for lung ca. repeat ct shows enlargement of right lung mass and hilar adenopathy since previous CT 2. hyponatremia. concern for siadh. s-osm and u-osm not consistent when in [place]..may have been offset by large amt of fluid intake prior to arrival. 3. hypokalemia -bronchoscopy planned with dr Martinez -repeat urine/serum osmols. pt was on strict fluid restriction prior to arrival that failed to keep na in nml range. She was discharged at 130 in [place]. will monitor today. She is currently asymptomatic from it. She might need to get dose of tolvaptan if start to drop again....but would need to convert to demeclocycline at d/c as tolvaptan not covered. -aggressive kcl replacement -dvt prophylaxis -PT/OOB (2) Hypokalemia ICD Codes: E87.6 - Hypokalemia Status: Acute (3) Hyponatremia ICD Codes: E87.1 - Hypo-osmolality and hyponatremia Status: Acute (4) Hypothyroid ICD Codes: E03.9 - Hypothyroidism, unspecified Status: Chronic (5) Emphysema of lung ICD Codes: J43.9 - Emphysema, unspecified Status: Chronic Christian Garces MD Dec 28, 2016 08:39
[2016-12-28] MEDS: DOCUSATE SODIUM 50 MG/SENNA 8.6 MG TAB PO SCH ×2 (08:42→21:41)
[2016-12-28] MEDS: SODIUM CHLORIDE 0.9% FLUSH 10 ML FLUSH SCH ×2 (08:43→21:00)
[2016-12-28 19:12] LABS: POTASSIUM 3.7 MEQ/L (3.5-5.1)
[2016-12-28] MEDS: SODIUM CHLORIDE 1 GRAM TAB PO SCH (21:41)
[2016-12-29] VITALS (14 sets, daily range): BP systolic 129–151; BP diastolic 67–82; PULSE 68–88; RESP 15–26; TEMP 97.6–98.4; O2SAT 93–100
[2016-12-29] MEDS: CHLORHEXIDINE GLUCONATE 2 % 1 PACK (2 CLOTHS) TOP SCH (04:00)
[2016-12-29 05:45] LABS: BICARBONATE 27.5 MEQ/L (21.0-32.0)
[2016-12-29] MEDS: HEPARIN SODIUM - SQ 10,000 UNITS/ML VIAL SQ SCH ×3 (07:00→22:44)
[2016-12-29] MEDS: LEVOTHYROXINE SODIUM 88 MCG TAB PO SCH (07:00)
--- NOTE | 2016-12-29 07:48 | HHI.PR ---
Subjective Remarks no sx's. no confusion Objective Vitals heart reg lung cta abd s/nt ext no edema Vital Signs Date Time Temp Pulse Resp B/P (MAP) Pulse Ox O2 Delivery O2 Flow Rate FiO2 12/29/16 06:00 74 12/29/16 04:00 68 12/29/16 04:00 98.1 68 21 129/73 (91) 98 12/29/16 02:00 68 12/29/16 00:00 74 12/29/16 00:00 98.4 74 18 147/82 (103) 98 12/28/16 22:41 16 12/28/16 22:00 78 12/28/16 20:36 97 21 12/28/16 20:00 98.1 82 21 156/85 (108) 97 12/28/16 20:00 82 12/28/16 19:00 98 Room Air 12/28/16 18:00 93 12/28/16 16:00 85 12/28/16 16:00 98.9 87 20 137/81 (99) 99 12/28/16 12:00 71 12/28/16 12:00 97.6 71 30 131/75 (93) 98 12/28/16 10:43 99 21 12/28/16 08:00 85 12/28/16 08:00 98.3 85 17 136/71 (92) 98 Result Diagram: 12/28/16 0446 12/29/16 0441 A/P Problem List: (1) Lung mass ICD Codes: R91.8 - Other nonspecific abnormal finding of lung field Status: Acute Plan: 1. right lung mass. concern for lung ca. repeat ct shows enlargement of right lung mass and hilar adenopathy since previous CT 2. hyponatremia. felt to to siadh related. 3. hypokalemia..improved. -bronchoscopy planned with dr Martinez..I'm told for next week -Na still around 125. will give dose tolvaptan and consider demeclocycline on d/c as this is covered by her insurance. she was already doing fluid restrict/nacl tabs at home -dvt prophylaxis -PT/OOB -will call family in [place]. I tried to call her sister Laney Luther(RN) at 2 different numbers in [place]....I called about 10 times and there is no answering service. I will try later. (2) Hypokalemia ICD Codes: E87.6 - Hypokalemia Status: Acute (3) Hyponatremia ICD Codes: E87.1 - Hypo-osmolality and hyponatremia Status: Acute (4) Hypothyroid ICD Codes: E03.9 - Hypothyroidism, unspecified Status: Chronic (5) Emphysema of lung ICD Codes: J43.9 - Emphysema, unspecified Status: Chronic Christian Garces MD Dec 29, 2016 07:48
[2016-12-29] MEDS ORDERED: TOLVAPTAN 15 MG TAB PO ONE (08:00)
[2016-12-29] MEDS: SODIUM CHLORIDE 0.9% FLUSH 10 ML FLUSH SCH ×2 (09:00→22:05)
[2016-12-29] MEDS: DOCUSATE SODIUM 50 MG/SENNA 8.6 MG TAB PO SCH ×2 (09:00→21:00)
[2016-12-29] MEDS: SODIUM CHLORIDE 1 GRAM TAB PO SCH (09:24)
[2016-12-29] MEDS: ACETAMINOPHEN 325 MG TAB PO PRN (15:02)
[2016-12-29] MEDS ORDERED: DEXTROSE 5% IV ONE (19:00)
[2016-12-29] MEDS: LORazepam 1 MG TAB PO PRN (21:07)
[2016-12-29] MEDS ORDERED: DEXTROSE 5% IN WATE 500 ML INJ 500 ML IV ONE (22:00)
[2016-12-30] VITALS (11 sets, daily range): BP systolic 116–157; BP diastolic 64–92; PULSE 74–114; RESP 12–22; TEMP 98.3–98.6; O2SAT 94–100
[2016-12-30 03:45] LABS: BICARBONATE 33.1 MEQ/L (21.0-32.0); POTASSIUM 4.5 MEQ/L (3.5-5.1)
[2016-12-30] MEDS: CHLORHEXIDINE GLUCONATE 2 % 1 PACK (2 CLOTHS) TOP SCH (04:00)
[2016-12-30] MEDS: HEPARIN SODIUM - SQ 10,000 UNITS/ML VIAL SQ SCH ×3 (06:54→22:00)
[2016-12-30] MEDS: LEVOTHYROXINE SODIUM 88 MCG TAB PO SCH (06:54)
--- NOTE | 2016-12-30 08:44 | HHI.PR ---
Subjective Remarks pt doing well not confused. Objective Vitals heart reg lung cta abd s/nt ext no edema Vital Signs Date Time Temp Pulse Resp B/P (MAP) Pulse Ox O2 Delivery O2 Flow Rate FiO2 12/30/16 06:00 86 12/30/16 04:00 94 12/30/16 04:00 94 12/30/16 04:00 98.4 94 20 157/85 (109) 99 12/30/16 02:00 75 12/30/16 00:01 94 12/30/16 00:00 80 12/30/16 00:00 98.3 80 15 116/64 (81) 99 12/29/16 22:00 88 12/29/16 20:15 93 12/29/16 20:00 98.4 80 15 144/76 (98) 99 12/29/16 20:00 80 12/29/16 19:00 99 Room Air 12/29/16 18:00 83 12/29/16 16:00 81 12/29/16 16:00 98.3 84 26 149/67 (94) 99 12/29/16 14:00 81 12/29/16 12:00 98.1 81 17 151/80 (103) 100 12/29/16 12:00 81 12/29/16 10:00 73 Result Diagram: 12/28/16 0446 12/30/16 0317 A/P Problem List: (1) Lung mass ICD Codes: R91.8 - Other nonspecific abnormal finding of lung field Status: Acute Plan: 1. right lung mass. concern for lung ca. repeat ct shows enlargement of right lung mass and hilar adenopathy since previous CT 2. hyponatremia. felt to to siadh related. 3. hypokalemia..improved. -bronchoscopy planned with dr Martinez..I'm told for next week Monday due to a staffing issue at [facility] discussed with her member services representative who recommends she stay here until the procedure is complete..as the lesion has grown over the past 4 weeks. Also if her sodium drops after d/c and before the procedure...then it will be delayed again (And most likely require another admission). - Na corrected to 135 after tolvaptan. d5w given for 250ml last night to avoid overcorrection. Na 134 today demeclocycline started as this is covered by her insurance and not tolvaptan she was already doing fluid restrict/nacl tabs at home and failed. A trial of demeclocycline before d/c is warranted. -dvt prophylaxis -PT/OOB -uptdated her family in [place] (2) Hypokalemia ICD Codes: E87.6 - Hypokalemia Status: Acute (3) Hyponatremia ICD Codes: E87.1 - Hypo-osmolality and hyponatremia Status: Acute (4) Hypothyroid ICD Codes: E03.9 - Hypothyroidism, unspecified Status: Chronic (5) Emphysema of lung ICD Codes: J43.9 - Emphysema, unspecified Status: Chronic Christian Garces MD Dec 30, 2016 08:44
[2016-12-30] MEDS: DOCUSATE SODIUM 50 MG/SENNA 8.6 MG TAB PO SCH ×2 (09:00→21:00)
[2016-12-30] MEDS: SODIUM CHLORIDE 0.9% FLUSH 10 ML FLUSH SCH ×2 (09:00→21:00)
[2016-12-30] MEDS: DEMECLOCYCLINE HCL 150 MG TAB PO SCH ×2 (09:30→21:00)
[2016-12-30] MEDS: SODIUM CHLORIDE 1 GRAM TAB PO SCH ×2 (09:30→21:00)
[2016-12-30] MEDS: LORazepam 1 MG TAB PO PRN (22:11)
[2016-12-31] VITALS: BP 118/62; PULSE 101; RESP 17; TEMP 97; O2SAT 96
[2016-12-31 04:00] VITALS: BP 100/57; PULSE 85; RESP 16; TEMP 96.9; O2SAT 99
[2016-12-31] MEDS: CHLORHEXIDINE GLUCONATE 2 % 1 PACK (2 CLOTHS) TOP SCH (04:00)
[2016-12-31] MEDS: LEVOTHYROXINE SODIUM 88 MCG TAB PO SCH (05:29)
[2016-12-31] MEDS: HEPARIN SODIUM - SQ 10,000 UNITS/ML VIAL SQ SCH ×3 (05:30→22:00)
[2016-12-31 07:21] LABS: BICARBONATE 29.9 MEQ/L (21.0-32.0); POTASSIUM 4.4 MEQ/L (3.5-5.1)
[2016-12-31 07:30] VITALS: BP 104/62; PULSE 92; RESP 20; TEMP 97.7; O2SAT 97
[2016-12-31] MEDS: SODIUM CHLORIDE 1 GRAM TAB PO SCH ×2 (08:18→20:05)
[2016-12-31] MEDS: DOCUSATE SODIUM 50 MG/SENNA 8.6 MG TAB PO SCH ×2 (08:19→20:05)
[2016-12-31] MEDS: DEMECLOCYCLINE HCL 150 MG TAB PO SCH ×2 (08:20→20:06)
[2016-12-31] MEDS: SODIUM CHLORIDE 0.9% FLUSH 10 ML FLUSH SCH ×2 (09:00→20:05)
--- NOTE | 2016-12-31 09:10 | HHI.PR ---
Subjective Remarks doing well. ambulating Objective Vitals heart reg lung cta abd s/nt ext no edema Vital Signs Date Time Temp Pulse Resp B/P (MAP) Pulse Ox O2 Delivery O2 Flow Rate FiO2 12/31/16 04:00 96.9 85 16 100/57 (71) 99 12/31/16 00:00 97.0 101 17 118/62 (80) 96 12/30/16 21:56 98.5 74 18 128/74 (92) 100 12/30/16 19:00 Room Air 12/30/16 16:00 98.6 94 12 122/75 (91) 97 12/30/16 14:00 87 12/30/16 12:00 98.4 87 20 156/92 (113) 97 12/30/16 12:00 114 12/30/16 10:00 96 Result Diagram: 12/28/16 0446 12/31/16 0623 A/P Problem List: (1) Lung mass ICD Codes: R91.8 - Other nonspecific abnormal finding of lung field Status: Acute Plan: 1. right lung mass. concern for lung ca. repeat ct shows enlargement of right lung mass and hilar adenopathy since previous CT 2. hyponatremia. felt to to siadh related. 3. hypokalemia..improved. -bronchoscopy planned with dr Martinez..I'm told for next week Monday due to a staffing issue at [facility] discussed with her vessel scrapper helper who recommends she stay here until the procedure is complete..as the lesion has grown over the past 4 weeks. Also if her sodium drops after d/c and before the procedure...then it will be delayed again (And most likely require another admission). - Na corrected to 136 after tolvaptan. demeclocycline started as this is covered by her insurance and not tolvaptan she was already doing fluid restrict/nacl tabs at home and failed. A trial of demeclocycline before d/c is warranted. -dvt prophylaxis -PT/OOB -uptdated her family in [place] (2) Hypokalemia ICD Codes: E87.6 - Hypokalemia Status: Acute (3) Hyponatremia ICD Codes: E87.1 - Hypo-osmolality and hyponatremia Status: Acute (4) Hypothyroid ICD Codes: E03.9 - Hypothyroidism, unspecified Status: Chronic (5) Emphysema of lung ICD Codes: J43.9 - Emphysema, unspecified Status: Chronic Christian Garces MD Dec 31, 2016 09:10
[2016-12-31 11:45] VITALS: BP 129/71; PULSE 97; RESP 20; TEMP 97.9; O2SAT 98
[2016-12-31 15:30] VITALS: BP 128/81; PULSE 104; RESP 20; TEMP 96.1; O2SAT 97
[2016-12-31 20:00] VITALS: BP 144/71; PULSE 111; RESP 20; TEMP 97.6; O2SAT 95
[2016-12-31] MEDS: LORazepam 1 MG TAB PO PRN (20:12)
[2017-01-01] VITALS: BP 126/72; PULSE 99; RESP 20; TEMP 97.9; O2SAT 98
[2017-01-01 04:00] VITALS: BP 119/60; PULSE 83; RESP 20; TEMP 97.6; O2SAT 96
[2017-01-01] MEDS: CHLORHEXIDINE GLUCONATE 2 % 1 PACK (2 CLOTHS) TOP SCH (04:00)
[2017-01-01] MEDS: HEPARIN SODIUM - SQ 10,000 UNITS/ML VIAL SQ SCH (06:09)
[2017-01-01] MEDS: LEVOTHYROXINE SODIUM 88 MCG TAB PO SCH (06:09)
[2017-01-01 07:30] VITALS: BP 121/64; PULSE 97; RESP 20; TEMP 97.7; O2SAT 98
[2017-01-01] MEDS: DOCUSATE SODIUM 50 MG/SENNA 8.6 MG TAB PO SCH ×2 (08:29→20:25)
[2017-01-01] MEDS: SODIUM CHLORIDE 1 GRAM TAB PO SCH ×2 (08:29→20:24)
[2017-01-01] MEDS: SODIUM CHLORIDE 0.9% FLUSH 10 ML FLUSH SCH ×2 (08:30→20:25)
--- NOTE | 2017-01-01 09:09 | HHI.PR ---
Subjective Remarks more emotional about her situation today..crying. Objective Vitals heart reg lung cta abd s/nt ext no edema Vital Signs Date Time Temp Pulse Resp B/P (MAP) Pulse Ox O2 Delivery O2 Flow Rate FiO2 01/01/17 08:56 Room Air 01/01/17 07:30 97.7 97 20 121/64 (83) 98 01/01/17 04:00 97.6 83 20 119/60 (79) 96 01/01/17 00:00 97.9 99 20 126/72 (90) 98 12/31/16 20:00 97.6 111 20 144/71 (95) 95 12/31/16 20:00 95 Room Air 12/31/16 15:30 96.1 104 20 128/81 (97) 97 12/31/16 11:45 97.9 97 20 129/71 (90) 98 Result Diagram: 12/28/16 0446 12/31/16 0623 A/P Problem List: (1) Lung mass ICD Codes: R91.8 - Other nonspecific abnormal finding of lung field Status: Acute Plan: 1. right lung mass. concern for lung ca. repeat ct shows enlargement of right lung mass and hilar adenopathy since previous CT 1 month ago 2. hyponatremia. felt to to siadh related. 3. hypokalemia..improved. -bronchoscopy planned with dr Martinez..I'm told for Monday due to a staffing issue at [facility] it was delayed discussed with her electrical engineering designer who recommended she stay here until the procedure is complete..as the lesion has grown over the past 4 weeks. Also if her sodium drops after d/c and before the procedure...then it will be delayed again (And most likely require another admission). - Na corrected to 136 after tolvaptan. demeclocycline started as this is covered by her insurance and not tolvaptan she was already doing fluid restrict/nacl tabs at home and failed. A trial of demeclocycline before d/c is warranted. so far na is stable..pending today. -dvt prophylaxis -PT/OOB -uptdated her family in [place] ADDENDUM: NA DROPPED FROM 136 TO 133..IF TOMORROW THE NA STILL TRENDING DOWN SHE MIGHT NEED A DOSE OF TOLVAPTAN TO KEEP IT FROM GOING TO LOW AND DELAYING HER BRONCH WITH BX. (2) Hypokalemia ICD Codes: E87.6 - Hypokalemia Status: Acute (3) Hyponatremia ICD Codes: E87.1 - Hypo-osmolality and hyponatremia Status: Acute (4) Hypothyroid ICD Codes: E03.9 - Hypothyroidism, unspecified Status: Chronic (5) Emphysema of lung ICD Codes: J43.9 - Emphysema, unspecified Status: Chronic Christian Garces MD Jan 01, 2017 09:09
[2017-01-01 09:28] LABS: BICARBONATE 29.4 MEQ/L (21.0-32.0); POTASSIUM 4.4 MEQ/L (3.5-5.1)
[2017-01-01 11:30] VITALS: BP 134/80; PULSE 91; RESP 20; TEMP 97.3; O2SAT 98
[2017-01-01] MEDS: DEMECLOCYCLINE HCL 150 MG TAB PO SCH ×2 (11:45→20:24)
[2017-01-01 15:50] VITALS: BP 146/62; PULSE 92; RESP 20; TEMP 97.1; O2SAT 98
[2017-01-01] MEDS: LORazepam 1 MG TAB PO PRN (20:24)
[2017-01-01 20:25] VITALS: BP 126/71; PULSE 109; RESP 16; TEMP 96.7; O2SAT 96
[2017-01-02] VITALS (7 sets, daily range): BP systolic 113–147; BP diastolic 63–76; PULSE 93–115; RESP 12–17; TEMP 96.4–98.4; O2SAT 96–100
[2017-01-02] MEDS: CHLORHEXIDINE GLUCONATE 2 % 1 PACK (2 CLOTHS) TOP SCH ×2 (04:00→22:05)
[2017-01-02] MEDS: LEVOTHYROXINE SODIUM 88 MCG TAB PO SCH (05:38)
[2017-01-02 07:50] LABS: BICARBONATE 27.9 MEQ/L (21.0-32.0); POTASSIUM 4.1 MEQ/L (3.5-5.1)
[2017-01-02] MEDS: DOCUSATE SODIUM 50 MG/SENNA 8.6 MG TAB PO SCH ×2 (09:00→21:00)
[2017-01-02] MEDS: ACETAMINOPHEN 325 MG TAB PO PRN (09:36)
[2017-01-02] MEDS: SODIUM CHLORIDE 1 GRAM TAB PO SCH ×2 (09:37→22:03)
[2017-01-02] MEDS: DEMECLOCYCLINE HCL 150 MG TAB PO SCH ×2 (09:37→22:01)
[2017-01-02] MEDS: SODIUM CHLORIDE 0.9% FLUSH 10 ML FLUSH SCH (09:39)
--- NOTE | 2017-01-02 16:25 | HHI.PR ---
Subjective Remarks No new complaints. Objective Vitals Vital Signs Date Time Temp Pulse Resp B/P (MAP) Pulse Ox O2 Delivery O2 Flow Rate FiO2 01/02/17 12:00 96.8 93 14 140/67 (91) 100 01/02/17 09:39 Room Air 01/02/17 08:00 97.4 103 12 147/63 (91) 97 01/02/17 04:40 98.4 104 17 120/76 (91) 98 01/02/17 00:25 96.9 98 16 113/64 (80) 96 01/01/17 20:25 96.7 109 16 126/71 (89) 96 01/01/17 20:00 96 Room Air Result Diagram: 01/02/17 0616 Imaging Last Impressions Chest CT 12/27/16 0000 Signed Impressions: Service Date/Time: Tuesday, December 27, 2016 17:23 - CONCLUSION: 1. Increase in size of right lung mass and right hilar adenopathy since November 26. Negative for pulmonary embolus. Guicho Eubanks MD Objective Remarks GENERAL: This is a well-nourished, well-developed patient, in no apparent distress. CARDIOVASCULAR: Regular rate and rhythm without murmurs, gallops, or rubs. RESPIRATORY: Clear to auscultation. Breath sounds equal bilaterally. No wheezes , rales, or rhonchi. GASTROINTESTINAL: Abdomen soft, non-tender, nondistended. Normal active bowel sounds MUSCULOSKELETAL: Extremities without clubbing, cyanosis, or edema. NEURO: Alert & Oriented x4 to person, place, time, situation. Moves all ext x4 A/P Problem List: (1) Lung mass ICD Codes: R91.8 - Other nonspecific abnormal finding of lung field Status: Acute Plan: 1. right lung mass. concern for lung ca. repeat ct shows enlargement of right lung mass and hilar adenopathy since previous CT 1 month ago 2. hyponatremia. felt to to siadh related. 3. hypokalemia..improved. -bronchoscopy planned with dr Martinez..I'm told for Monday due to a staffing issue at [facility] it was delayed discussed with her court reporter who recommended she stay here until the procedure is complete..as the lesion has grown over the past 4 weeks. Also if her sodium drops after d/c and before the procedure...then it will be delayed again (And most likely require another admission). - Na corrected to 136 after tolvaptan, changed to demeclocycline -dvt prophylaxis -PT/OOB - Case d/w Pulm Medicine, Dr. Martinez. Pt scheduled for Bronchoscopy tomorrow afternoon (2) Hypokalemia ICD Codes: E87.6 - Hypokalemia Status: Acute (3) Hyponatremia ICD Codes: E87.1 - Hypo-osmolality and hyponatremia Status: Acute (4) Hypothyroid ICD Codes: E03.9 - Hypothyroidism, unspecified Status: Chronic (5) Emphysema of lung ICD Codes: J43.9 - Emphysema, unspecified Status: Chronic Grupo John DO Jan 02, 2017 16:25
[2017-01-02] MEDS: LORazepam 2 MG/ML VIAL IV PUSH PRN ×2 (17:09→23:06)
[2017-01-02] MEDS ORDERED: SODIUM CHLORIDE 0.9% FLUSH 10 ML FLUSH IV FLUSH PRN (17:15)
[2017-01-02] MEDS ORDERED: DEXT 5%-NACL 0.45% 1000 ML INJ 1,000 ML IV SCH (18:00)
[2017-01-02] MEDS ORDERED: RESP: LIDOCAINE HCL 4% PF 5 ML NEB NEB SCH (18:00)
[2017-01-02] MEDS ORDERED: RESP: ALBUTEROL CONC 2.5 MG/0.5 ML NEB NEB SCH (18:00)
[2017-01-02] MEDS: SODIUM CHLORIDE 0.9% FLUSH 10 ML FLUSH IV FLUSH SCH (22:04)
[2017-01-03 00:40] VITALS: BP 103/59; PULSE 102; RESP 17; TEMP 96.5; O2SAT 97
[2017-01-03] MEDS ORDERED: CHLORHEXIDINE GLUCONATE 2 % 1 PACK (2 CLOTHS) TOPICAL PRN (02:15)
[2017-01-03] MEDS ORDERED: SODIUM CHLORID 0.9% 500 ML IV PRN (02:15)
[2017-01-03] MEDS ORDERED: LACTATED RINGER'S 1000 ML IV PRN (02:15)
[2017-01-03] MEDS ORDERED: POVIDONE IODINE 5% (ANTISEPSIS KIT) 4 APPLICATIONS EACH NARE PRN (02:15)
[2017-01-03 04:30] VITALS: BP 104/62; PULSE 95; RESP 17; TEMP 97; O2SAT 98
[2017-01-03] MEDS: LEVOTHYROXINE SODIUM 88 MCG TAB PO SCH (05:36)
[2017-01-03 08:00] VITALS: BP 121/69; PULSE 95; RESP 18; TEMP 96.8; O2SAT 96
[2017-01-03 08:11] LABS: APTT (PATIENT) 24.8 SEC (24.3-30.1); PROTHROMBIN TIME - PATIENT 10.6 SEC (9.8-11.6)
[2017-01-03 08:36] LABS: BICARBONATE 29.2 MEQ/L (21.0-32.0)
[2017-01-03] MEDS: DEMECLOCYCLINE HCL 150 MG TAB PO SCH ×2 (08:59→21:47)
[2017-01-03] MEDS: DOCUSATE SODIUM 50 MG/SENNA 8.6 MG TAB PO SCH ×2 (09:00→19:14)
[2017-01-03] MEDS: SODIUM CHLORIDE 1 GRAM TAB PO SCH ×2 (09:00→21:46)
[2017-01-03] MEDS: SODIUM CHLORIDE 0.9% FLUSH 10 ML FLUSH IV FLUSH SCH ×2 (09:05→21:47)
[2017-01-03] MEDS ORDERED: MIDAZOLAM HCL 2 MG/2 ML VIAL IV ONE (12:00)
[2017-01-03] MEDS ORDERED: PHENYLEPHRINE HCL 10 MG/ML VIAL IV ONE (12:00)
[2017-01-03] MEDS ORDERED: SUCCINYLCHOLINE CHLORIDE 100 MG/5 ML SYRINGE IV PUSH ONE (12:00)
[2017-01-03] MEDS ORDERED: DEXAMETHASONE SOD PHOS 4 MG/ML VIAL IV ONE (12:00)
[2017-01-03] MEDS ORDERED: ONDANSETRON HCL 4 MG/2 ML VIAL IV PUSH ONE (12:00)
[2017-01-03] MEDS ORDERED: METOPROLOL TARTRATE 5 MG/5 ML VIAL IV PUSH ONE (12:00)
[2017-01-03] MEDS ORDERED: ePHEDrine/NS 25 MG/5 ML SYR IV ONE (12:00)
[2017-01-03] MEDS ORDERED: PHENYLEPH/NS 1000 MCG/10 ML SYR IV ONE (12:00)
[2017-01-03] MEDS ORDERED: LIDOCAINE HCL 1% PF 5 ML AMPULE OTHER ONE (12:00)
[2017-01-03] MEDS ORDERED: ROCURONIUM INJ 50 MG/5 ML SYRINGE IV PUSH ONE (12:00)
--- NOTE | 2017-01-03 12:41 | RADRPT ---
EXAM DATE/TIME: 01/03/2017 12:19 [facility] COMPARISON: CT THORAX W CONTRAST, December 27, 2016, 17:23. INDICATIONS : Pre-op VERAN chest bronchoscopy. RADIATION DOSE: 9.11 CTDIvol (mGy) MEDICAL HISTORY : Carcinoma, lung. SURGICAL HISTORY : None. ENCOUNTER: Initial ACUITY: 1 day PAIN SCALE: 0/10 LOCATION: chest TECHNIQUE: Volumetric scanning of the chest was performed using inspiration and expiration protocols. The study is performed using fiduciary markers for virtual bronchoscopy. Using automated exposure control and adjustment of the mA and/or kV according to patient size, radiation dose was kept as low as reasonabl y achievable to obtain optimal diagnostic quality images. DICOM format image data is available elec tronically for review and comparison. Follow-up recommendations for detected pulmonary nodules are based at a minimum on nodule size and pa tient risk factors according to Fleischner Society Guidelines. FINDINGS: The right upper lobe mass is again seen an incompletely evaluated on this study. On image 7 it measur es 3 cm in transverse dimension. Its full extent is not imaged. No pleural or pericardial effusions. Atherosclerotic calcification of the aorta. Osseous structures are intact. CONCLUSION: Right upper lobe mass. Gregg Conway MD on January 03, 2017 at 12:38 Board Certified Radiologist. This report was verified electronically.
[2017-01-03] MEDS ORDERED: RESP: ALBUTEROL 2.5 MG/IPRATROPIUM 0.5 MG NEB (PRN) NEB (16:00)
[2017-01-03] MEDS ORDERED: DO NOT ADM ANY ANTICOAGULANT DRUGS PRN (16:10)
--- NOTE | 2017-01-03 16:29 | RADRPT ---
EXAM DATE/TIME: 01/03/2017 15:58 [facility] COMPARISON: CT THORAX W/O CONTRAST INSP/EXPIR, NAVIGATION, January 03, 2017, 12:19. CHEST SINGLE AP, November, 11:20. INDICATIONS : Post bronchoscopy. MEDICAL HISTORY : Hypothyroidism. Carcinoma, lung. SURGICAL HISTORY : Tubal ligation. ENCOUNTER: Subsequent ACUITY: 4 - 6 days PAIN SCORE: 0/10 LOCATION: Bilateral chest FINDINGS: There are COPD changes. Heart is normal in size. There is prominence of the right jaron. There are ate lectatic changes in the right upper lobe. No pneumothorax is seen. The visualized bony structures are intact. CONCLUSION: 1. COPD changes. 2. Interstitial infiltrate in the right upper lobe probably representing some degree of atelectasis. There is right hilar prominence concerning for a right hilar mass. 3. No pneumothorax post bronchoscopy. Billy Sheridan MD on January 03, 2017 at 16:25 Board Certified Radiologist. This report was verified electronically.
[2017-01-03] MEDS ORDERED: FUROSEMIDE 20 MG/2 ML VIAL IV PUSH ONE (16:45)
[2017-01-03 17:00] VITALS: BP 151/89; PULSE 110; RESP 20; TEMP 97; O2SAT 92
[2017-01-03] MEDS ORDERED: methylPREDNISolone SOD SUCC 40 MG/1 ML VIAL IV PUSH ONE (17:15)
--- NOTE | 2017-01-03 17:57 | HHI.PR ---
Subjective Remarks No new complaints. Objective Vitals Vital Signs Date Time Temp Pulse Resp B/P (MAP) Pulse Ox O2 Delivery O2 Flow Rate FiO2 01/03/17 17:00 97.0 110 20 151/89 (109) 92 01/03/17 16:45 97.6 111 19 147/68 (94) 97 Nasal Cannula 2 01/03/17 16:31 19 96 Nasal Cannula 2 01/03/17 16:30 109 18 137/80 (99) 90 Room Air 01/03/17 16:15 113 19 129/81 (97) 93 Room Air 01/03/17 16:00 97.6 122 17 147/78 (101) 96 Simple Mask 3 01/03/17 08:00 96.8 95 18 121/69 (86) 96 01/03/17 04:30 97.0 95 17 104/62 (76) 98 01/03/17 00:40 96.5 102 17 103/59 (74) 97 01/02/17 21:55 Room Air 01/02/17 20:30 96.4 103 17 113/70 (84) 97 01/03/17 01/03/17 01/04/17 15:00 23:00 07:00 Intake Total 700 ml Balance 700 ml Other 700 ml Result Diagram: 01/03/17 0702 Imaging Last Impressions Chest CT 12/27/16 0000 Signed Impressions: Service Date/Time: Tuesday, December 27, 2016 17:23 - CONCLUSION: 1. Increase in size of right lung mass and right hilar adenopathy since November 26. Negative for pulmonary embolus. Guicho Eubanks MD Objective Remarks GENERAL: This is a well-nourished, well-developed patient, in no apparent distress. CARDIOVASCULAR: Regular rate and rhythm without murmurs, gallops, or rubs. RESPIRATORY: Clear to auscultation. Breath sounds equal bilaterally. No wheezes , rales, or rhonchi. GASTROINTESTINAL: Abdomen soft, non-tender, nondistended. Normal active bowel sounds MUSCULOSKELETAL: Extremities without clubbing, cyanosis, or edema. NEURO: Alert & Oriented x4 to person, place, time, situation. Moves all ext x4 A/P Problem List: (1) Lung mass ICD Codes: R91.8 - Other nonspecific abnormal finding of lung field Status: Acute Plan: 1. right lung mass. concern for lung ca. repeat ct shows enlargement of right lung mass and hilar adenopathy since previous CT 1 month ago 2. hyponatremia. felt to to siadh related. 3. hypokalemia..improved. -bronchoscopy planned with dr Martinez..I'm told for Monday due to a staffing issue at [facility] it was delayed discussed with her ear machine operator who recommended she stay here until the procedure is complete..as the lesion has grown over the past 4 weeks. Also if her sodium drops after d/c and before the procedure...then it will be delayed again (And most likely require another admission). - Na corrected to 136 after tolvaptan, changed to demeclocycline -dvt prophylaxis -PT/OOB - Case d/w Pulm Medicine, Dr. Martinez (01/02) - Pt underwent bronchoscopy (01/03) - await results of biospsy and washings - supportive care (2) Hypokalemia ICD Codes: E87.6 - Hypokalemia Status: Acute (3) Hyponatremia ICD Codes: E87.1 - Hypo-osmolality and hyponatremia Status: Acute (4) Hypothyroid ICD Codes: E03.9 - Hypothyroidism, unspecified Status: Chronic (5) Emphysema of lung ICD Codes: J43.9 - Emphysema, unspecified Status: Chronic Grupo John DO Jan 03, 2017 17:57
--- NOTE | 2017-01-03 19:34 | MP ---
cc: SHER GONZALEZ DATE OF SURGERY 01/03/17 PROCEDURE Bronchoscopy INDICATION Right upper lobe mass with adenopathy, suspected malignancy. After informed consent was obtained, the patient underwent diagnostic bronchoscopy utilizing both navigational and ultrasound technology. Examination of the mid to distal trachea was normal. Examination of the left main stem bronchus, left upper lobe lingula and lower lobe orifices were all entirely unremarkable. Examination of the right main stem bronchus down to the takeoff of the right upper lobe was normal. Right middle lobe and lower lobes were entirely unremarkable. No endobronchial pathology. Careful examination of the right upper lobe anterior segment revealed mucosal irregularity and narrowing in one of the subsegments. The posterior and apical segments were normal. Utilizing the navigational technology, we then localized the lesion to a subsegment of the right upper lobe. Once we were in position, washings, brushings as well as a needle aspiration again using navigational technology and several bronchial biopsies were obtained. Specimens were submitted for cytology and cultures and routine pathology. Once the primary lesion had been sampled, we redirected our attention to a large lymph node in the station 11 on the right. Examination of the right paratracheal stripe both the 4R and 10R stations were negative. The large lymph node in the 11 station was identified again with ultrasound and three individual passes were made into the lymph node percutaneously by needle aspiration. There was no apparent complication during the procedure. She had minimal bleeding. Multiple specimens were submitted for routine pathology, cytology and microbiology. The patient is transferred to recovery. Post extubation. A chest x-ray is pending at this time. RMD ETTA Lopez/ /4:03 PM /7:16 PM
[2017-01-03 20:05] VITALS: O2SAT 97
[2017-01-03] MEDS: RESP: ALBUTEROL 2.5 MG/IPRATROPIUM 0.5 MG NEB (SCH) NEB (20:05)
[2017-01-03 20:30] VITALS: BP 124/82; PULSE 116; RESP 17; TEMP 96.4; O2SAT 95
[2017-01-03] MEDS: LORazepam 2 MG/ML VIAL IV PUSH PRN (22:10)
[2017-01-03] MEDS: CHLORHEXIDINE GLUCONATE 2 % 1 PACK (2 CLOTHS) TOP SCH (22:13)
[2017-01-04] VITALS (8 sets, daily range): BP systolic 96–140; BP diastolic 63–73; PULSE 101–119; RESP 16–18; TEMP 96–97.8; O2SAT 93–99
[2017-01-04] MEDS: LEVOTHYROXINE SODIUM 88 MCG TAB PO SCH (06:11)
[2017-01-04] MEDS: RESP: ALBUTEROL 2.5 MG/IPRATROPIUM 0.5 MG NEB (SCH) NEB (07:33)
[2017-01-04 07:39] LABS: BICARBONATE 26.3 MEQ/L (21.0-32.0); POTASSIUM 3.8 MEQ/L (3.5-5.1)
[2017-01-04] MEDS: SODIUM CHLORIDE 1 GRAM TAB PO SCH ×2 (07:46→20:38)
[2017-01-04] MEDS: DEMECLOCYCLINE HCL 150 MG TAB PO SCH ×2 (07:46→20:38)
[2017-01-04] MEDS: ACETAMINOPHEN 325 MG TAB PO PRN (07:47)
[2017-01-04] MEDS: DOCUSATE SODIUM 50 MG/SENNA 8.6 MG TAB PO SCH ×3 (07:47→20:39)
[2017-01-04] MEDS: LORazepam 2 MG/ML VIAL IV PUSH PRN ×2 (16:36→22:37)
--- NOTE | 2017-01-04 17:53 | HHI.PR ---
Subjective Remarks Patient reports awake several times for VS and weight last night offers no other specific complaints Objective Vitals Vital Signs Date Time Temp Pulse Resp B/P (MAP) Pulse Ox O2 Delivery O2 Flow Rate FiO2 01/04/17 16:54 96.3 105 18 140/65 (90) 97 01/04/17 12:00 97.0 101 16 128/73 (91) 97 01/04/17 08:00 96.2 119 16 139/70 (93) 95 01/04/17 07:38 99 Nasal Cannula 2.00 01/04/17 04:30 96.0 107 16 102/66 (78) 94 01/04/17 00:25 96.7 106 17 96/63 (74) 98 01/03/17 20:30 96.4 116 17 124/82 (96) 95 01/03/17 20:05 97 Nasal Cannula 2.00 01/03/17 20:00 Room Air Result Diagram: 01/04/17 0656 Other Results Laboratory Tests Test 01/02/17 06:16 01/03/17 07:02 01/04/17 06:56 Blood Urea Nitrogen 20 MG/DL 15 MG/DL 19 MG/DL Creatinine 0.53 MG/DL 0.65 MG/DL 0.74 MG/DL Random Glucose 92 MG/DL 88 MG/DL 103 MG/DL Calcium Level 9.7 MG/DL 9.6 MG/DL 9.2 MG/DL Sodium Level 136 MEQ/L 137 MEQ/L 135 MEQ/L Potassium Level 4.1 MEQ/L 4.0 MEQ/L 3.8 MEQ/L Chloride Level 101 MEQ/L 102 MEQ/L 100 MEQ/L Carbon Dioxide Level 27.9 MEQ/L 29.2 MEQ/L 26.3 MEQ/L Anion Gap 7 MEQ/L 6 MEQ/L 9 MEQ/L Estimat Glomerular Filtration Rate 118 ML/MIN 94 ML/MIN 81 ML/MIN Prothrombin Time 10.6 SEC Prothromb Time International Ratio 1.0 RATIO Activated Partial Thromboplast Time 24.8 SEC Imaging Last Impressions Chest CT 12/27/16 0000 Signed Impressions: Service Date/Time: Tuesday, December 27, 2016 17:23 - CONCLUSION: 1. Increase in size of right lung mass and right hilar adenopathy since November 26. Negative for pulmonary embolus. Guicho Eubanks MD Objective Remarks GENERAL: This is a well-nourished, well-developed patient, in no apparent distress. CARDIOVASCULAR: Regular rate and rhythm without murmurs, gallops, or rubs. RESPIRATORY: Clear to auscultation. Breath sounds equal bilaterally. No wheezes , rales, or rhonchi. GASTROINTESTINAL: Abdomen soft, non-tender, nondistended. Normal active bowel sounds MUSCULOSKELETAL: Extremities without clubbing, cyanosis, or edema. NEURO: Alert & Oriented x4 to person, place, time, situation. Moves all ext x4 A/P Problem List: (1) Lung mass ICD Codes: R91.8 - Other nonspecific abnormal finding of lung field Status: Acute Plan: 1. right lung mass. concern for lung ca. repeat ct shows enlargement of right lung mass and hilar adenopathy since previous CT 1 month ago 2. hyponatremia. felt to to siadh related. 3. hypokalemia..improved. - s/p bronchoscopy 01/[address] Martinez. pathology pending - Na corrected to 136 after tolvaptan, changed to demeclocycline Na (01/04) 135 recheck in AM -dvt prophylaxis -PT/OOB - Case d/w Pulm Medicine, Dr. Martinez (01/02) - Pt underwent bronchoscopy (01/03) - await results of biospsy and washings - supportive care - case discussed by Dr. John and Dr. Hickey - plan to [place] tomorrow evening (2) Hypokalemia ICD Codes: E87.6 - Hypokalemia Status: Acute (3) Hyponatremia ICD Codes: E87.1 - Hypo-osmolality and hyponatremia Status: Acute (4) Hypothyroid ICD Codes: E03.9 - Hypothyroidism, unspecified Status: Chronic (5) Emphysema of lung ICD Codes: J43.9 - Emphysema, unspecified Status: Chronic Assessment and Plan Patient examined. Assessment and plan formulated with Sumi Aguilar PA-C. I agree with the above. Sumi Aguilar Jan 04, 2017 17:53 Grupo John DO Jan 06, 2017 23:52
[2017-01-04] MEDS: SODIUM CHLORIDE 0.9% FLUSH 10 ML FLUSH IV FLUSH SCH (20:39)
[2017-01-04] MEDS: RESP: IPRATROPIUM 0.5 MG/2.5 ML NEB NEB SCH (20:48)
[2017-01-05 00:53] VITALS: BP 112/73; PULSE 73; RESP 18; TEMP 97.5; O2SAT 97
[2017-01-05] MEDS: CHLORHEXIDINE GLUCONATE 2 % 1 PACK (2 CLOTHS) TOP SCH (03:02)
[2017-01-05] MEDS: LEVOTHYROXINE SODIUM 88 MCG TAB PO SCH (06:15)
[2017-01-05 08:07] LABS: BICARBONATE 27.8 MEQ/L (21.0-32.0)
[2017-01-05] MEDS: RESP: IPRATROPIUM 0.5 MG/2.5 ML NEB NEB SCH ×2 (08:14→11:27)
[2017-01-05 08:16] VITALS: O2SAT 98
[2017-01-05 08:49] VITALS: BP 118/79; PULSE 94; RESP 17; TEMP 97.8; O2SAT 100
--- NOTE | 2017-01-05 09:26 | MB ---
cc: VIVIAN JOHN RUBY ANNE E. M.D. DATE OF 1960 DATE OF SERVICE 01/05/[address] Monty John CHIEF COMPLAINT Dr. John requested consultation with Ms. Sagastume with suspected newly diagnosed bronchogenic carcinoma. HISTORY OF PRESENT ILLNESS Ms. Sagastume is a 56-year-old woman, a patient of Dr. Martinez with a long history of smoking. She has a 45 pack-year smoking history. She has had unintentional weight loss for the past year, about 15 pounds. She was slight to begin with. She has had coughing, shortness of breath. She did not feel right. She had a CT scan screening coordinated by Dr. Martinez that shows a mass in the right lung. She was pending diagnostic evaluation when she came in with symptomatic hyponatremia. She has had a bronchoscopic evaluation and biopsy by Dr. Martinez on January 03, 2017. The final pathology is still pending. The case was discussed with Dr. Martinez pending a small cell and non-small cell lung cancer. She may be resectable. She is in need of pulmonary function test evaluation. She reports a CT scan of the has been performed that was unremarkable except for right sphenoid sinusitis. There is no evidence of LUBE MAN metastatic disease although MRI is more sensitive. She is interested in receiving treatment. We have discussed briefly treatment for lung cancer pending on its histology. REVIEW OF SYSTEMS On review of systems she has a good appetite. No bowel changes. She is any headaches. No fevers, chills or night sweats. She is losing weight unintentionally. 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 She lives at home with her and son. She was continuing to work, very physical work as a supervisor electronics processing but was feeling very spent and tired at the end of the day with respiratory symptoms of coughing. PAST MEDICAL HISTORY 1. Hypothyroidism. 2. Suspected bronchogenic carcinoma. 3. Unintentional weight loss. 4. Hyponatremia. PAST SURGICAL HISTORY Bronchoscopy. FAMILY HISTORY Father of coronary artery disease in his 50s. Mother of coronary disease/CA in her 80s. SOCIAL HISTORY She smokes a 1-1/2 packs per day for 30 years. She quit a few days ago. She denies any alcohol or illicit drug use. She is , lives with her and her son. CURRENT MEDICATIONS 1. Atrovent. 2. Albuterol. 3. Lorazepam. 4. Declomycin. 5. Karen-Colace. 6. Synthroid. 7. Acetaminophen p.r.n. PHYSICAL EXAMINATION VITAL SIGNS: Temperature 97.5 heart rate 73, respiratory rate 18, blood pressure 112/73, saturation 97%. GENERAL: Ms. Sagastume is a well-developed, thin, cachectic-appearing woman in no acute distress, eating her breaskfast. HEENT: Her pupils are round, reactive to light and accommodation. Sclerae is nonicteric. NECK: Neck is supple with no adenopathy. AXILLAE: No axillary adenopathy. LUNGS: With diminished breath sounds throughout. CARDIOVASCULAR EXAM: Normal rate and rhythm. ABDOMEN: Soft, flat and benign. LOWER EXTREMITIES: With no edema. SKIN: Dry and coreas. She has no bowel body fat. LABORATORY DATA CBC is normal. BASIC METABOLIC PANEL Normal with a BUN of 27, creatinine 0.8, sodium 140. IMAGING STUDIES CT scan of the chest from 01/03 shows right upper lobe mass, 3 cm in transverse dimension. CT scan of the abdomen and pelvis unremarkable except for atherosclerotic vascular calcification. ASSESSMENT AND PLAN Mrs. Sagastume is a 56-year-old woman with history hypothyroidism. She presents with an increase in coughing, unintentional weight loss, feeling weak and fatigued. She was found to have right upper lung mass. Biopsies pending. A lengthy discussion with Mrs. Sagastume of our findings. We need to decide if this is a small cell or non-small cell lung cancer which is treated differently. As discussed with Dr. Martinez and earlier with Dr. John, if this turns out to be a non-small cell lung cancer we will present her to Cardiothoracic Surgery for definitive surgery. She will need formal pulmonary function testing to see if she is a candidate for definitive surgery. She has had a long history of smoking and looks like severe COPD. If a diagnosed with a small cell lung cancer, she appears to have a limited stage small cell lung cancer. We will confirm with staging on CT/PET scan on outpatient basis. She is a candidate for concurrent chemotherapy and radiation in this manner. Either way, we discussed the treatment for her lung cancer can be coordinated on an outpatient basis. From the Hematology/Oncology standpoint she may be discharged for a followup in the clinic. I will give her my card and give her a referral. Her questions were answered to her satisfaction. Lillian Hickey MD RAD/[facility] /8:48 AM /9:06 AM
[2017-01-05] MEDS: SODIUM CHLORIDE 0.9% FLUSH 10 ML FLUSH IV FLUSH SCH (09:31)
[2017-01-05] MEDS: DOCUSATE SODIUM 50 MG/SENNA 8.6 MG TAB PO SCH (09:31)
[2017-01-05] MEDS: DEMECLOCYCLINE HCL 150 MG TAB PO SCH ×2 (09:31→15:12)
[2017-01-05] MEDS: SODIUM CHLORIDE 1 GRAM TAB PO SCH (09:31)
[2017-01-05] MEDS ORDERED: DEME150T2 PO (11:57)
[2017-01-05 12:11] VITALS: BP 135/74; PULSE 97; RESP 17; TEMP 98.1; O2SAT 97
--- NOTE | 2017-01-05 12:12 | HHI.DS ---
Discharge Summary Admission Date Dec 26, 2016 at 20:03 Discharge Date: Jan 05, 2017 Admitting Diagnosis Hyponatremia (1) Lung mass ICD Codes: R91.8 - Other nonspecific abnormal finding of lung field Status: Acute (2) Hypokalemia ICD Codes: E87.6 - Hypokalemia Status: Acute (3) Hyponatremia ICD Codes: E87.1 - Hypo-osmolality and hyponatremia Status: Acute (4) Hypothyroid ICD Codes: E03.9 - Hypothyroidism, unspecified Status: Chronic (5) Emphysema of lung ICD Codes: J43.9 - Emphysema, unspecified Status: Chronic Consultants Dr. Martinez Pulmonology Dr. Hickey Oncology Procedures bronchoscopy 01/03/[address] Martinez CBC/BMP: 01/05/17 0715 Significant Findings Laboratory Tests Test 01/03/17 07:02 01/04/17 06:56 01/05/17 07:15 Blood Urea Nitrogen 19 MG/DL (7-18) 27 MG/DL (7-18) Sodium Level 135 MEQ/L (136-145) Estimat Glomerular Filtration Rate 81 ML/MIN (>89) 74 ML/MIN (>89) Imaging Last Impressions Chest X-Ray 01/03/17 0000 Signed Impressions: Service Date/Time: Tuesday, January 03, 2017 15:58 - CONCLUSION: 1. COPD changes. 2. Interstitial infiltrate in the right upper lobe probably representing some degree of atelectasis. There is right hilar prominence concerning for a right hilar mass. 3. No pneumothorax post bronchoscopy. Billy Sheridan MD Chest CT 01/03/17 0000 Signed Impressions: Service Date/Time: Tuesday, January 03, 2017 12:19 - CONCLUSION: Right upper lobe mass. Gregg Conway MD PE at Discharge GENERAL: This is a well-nourished, well-developed patient, in no apparent distress. CARDIOVASCULAR: Regular rate and rhythm without murmurs, gallops, or rubs. RESPIRATORY: Clear to auscultation. Breath sounds equal bilaterally. No wheezes , rales, or rhonchi. GASTROINTESTINAL: Abdomen soft, non-tender, nondistended. Normal active bowel sounds MUSCULOSKELETAL: Extremities without clubbing, cyanosis, or edema. NEURO: Alert & Oriented x4 to person, place, time, situation. Moves all ext x4 Hospital Course Lung mass Patient presented to the hospital with Right lung mass. concern for lung ca. repeat ct shows enlargement of right lung mass and hilar adenopathy since previous CT 1 month ago underwent bronchoscopy 01/[address] Martinez pathology pending Case discussed with Dr. Hickey who meet with the patient and plans to continue further work up as an outpatient Patient also had hyponatremia with sodium of 133 on admission. felt to to siadh related. Initially patient was admitted to ICU placed on NS, sodium tablets Patient also treated with Tolvaptan on 12/29/16 and was started on Declomycin 600 mg BID 12/30/16 sodium monitored and stabilized on Declomycin will continue Declomycin after DC with follow up BMP in 2-3 days cc her PCP Dr. Mcmillan hypokalemia.replaced and improved. Pt Condition on Discharge: Stable Discharge Disposition: Discharge Home Discharge Instructions DIET: Follow Instructions for: As Tolerated, No Restrictions Activities you can perform: Regular-No Restrictions Follow up Referrals: Oncology - [address] Hickey PCP Follow-up - [address] Linares Pulmonology - [address] Martinez New Medications: Demeclocycline (Demeclocycline) 150 Mg Tab 600 MG PO Q12HR for sodium, #60 TAB 0 Refills Continued Medications: Alendronate (Fosamax) 70 Mg Tab 70 MG PO Q7D for Osteoporosis Treatment, #4 TAB 0 Refills Levothyroxine (Levothyroxine) 88 Mcg Tab 88 MCG PO DAILY for Thyroid, #30 TAB 0 Refills Sodium Chloride (Sodium Chloride) 1 Gm Tab 1 GM PO DAILY for Electrolyte Replacement for 30 Days, #30 TAB 0 Refills Additional Information Patient examined. Assessment and plan formulated with Sumi Aguilar PA-C. I agree with the above. Sumi Aguilar Jan 05, 2017 12:12 Grupo John DO Jan 06, 2017 23:53
--- NOTE | 2017-01-05 14:01 | HHI.DCPOC ---
Discharge Care Plan Diagnosis: (1) Lung mass (2) Hyponatremia Goals to Promote Your Health * To prevent worsening of your condition and complications * To maintain your health at the optimal level Directions to Meet Your Goals Take your medications as prescribed Follow your dietary instruction Follow activity as directed Keep your appointments as scheduled Take your immunizations and boosters as scheduled If your symptoms worsen call your PCP, if no PCP go to Urgent Care Center or Emergency Room Smoking is Dangerous to Your Health. Avoid second hand smoke Call the 24-hour hour crisis hotline for domestic abuse at Sumi Aguilar Jan 05, 2017 14:00 Grupo John DO Jan 06, 2017 23:53
== END 2017-01-05 16:00 | disposition home or self-care (01) | DRG 629 ==
LOC: NEPE 17:37 → NEDA 20:03 → N03B 23:34 → HOCB 12-30 16:01
PROVIDERS: ADMIT Hospitalist; ATTEND Hospitalist
PROC: 0BBC8ZX Excision of Right Upper Lung Lobe, Via Natural or Artificial Opening Endoscopic, Diagnostic (ICD-10-PCS; 2017-01-03)
PROC: 07B74ZX Excision of Thorax Lymphatic, Percutaneous Endoscopic Approach, Diagnostic (ICD-10-PCS; principal; 2017-01-03 13:58)
DX: E22.2 Syndrome of inappropriate secretion of antidiuretic hormone (principal); Z68.1 Body mass index [BMI] 19.9 or less, adult; C34.11 Malignant neoplasm of upper lobe, right bronchus or lung; J44.9 Chronic obstructive pulmonary disease, unspecified; E86.0 Dehydration; R63.4 Abnormal weight loss; E03.9 Hypothyroidism, unspecified; E87.6 Hypokalemia; M81.0 Age-related osteoporosis without current pathological fracture; R59.0 Localized enlarged lymph nodes; Z87.891 Personal history of nicotine dependence
CPT/HCPCS: 71010; 71250; 71260; 80048; 80053; 83735; 83930; 83935; 84100; 84132; 84295; 85025; 85027; 85610; 85730; 87015; 87070; 87102; 87116; 87205; 87206; 87641; 88305; 88307; 88341; 88342; 94640; 94664; J0330; J1100; J1644; J1940; J2060; J2250; J2370; J2405; J2920; J3010; J7030; J7060; J7611; J7644; Q9967

== ENCOUNTER 2017-01-19 06:15 | Day surgery (SDC) | payer OTHER ==
[~2017-01-19] VITALS: Ht 165.1 cm; Wt 39.0 kg
[~2017-01-19 06:15] MED LIST changes: +DEME150T2 PO
[2017-01-19 06:47] VITALS: BP 111/78; PULSE 100; RESP 20; TEMP 97.5; O2SAT 96
[2017-01-19] MEDS ORDERED: SODIUM CHLORIDE 0.9% 1000 ML IV SCH (07:00)
[2017-01-19] MEDS ORDERED: VANCOMYCIN 1000 MG/NS 250 ML - implanted port/tunneled catheter IV SCH ×2 (07:00)
[2017-01-19] MEDS ORDERED: ceFAZolin 2 GM PREMIX 50 ML - implanted port/tunneled catheter insertion IV SCH (07:00)
[2017-01-19] MEDS ORDERED: POVIDONE IODINE 5% (ANTISEPSIS KIT) 4 APPLICATIONS EACH NARE SCH (07:00)
[2017-01-19] MEDS ORDERED: CHLORHEXIDINE GLUCONATE 2 % 1 PACK (2 CLOTHS) TOPICAL SCH (07:00)
[2017-01-19 07:57] LABS: APTT (PATIENT) 28.7 SEC (24.3-30.1); PROTHROMBIN TIME - PATIENT 10.7 SEC (9.8-11.6)
[2017-01-19] MEDS ORDERED: MIDAZOLAM HCL 5 MG/5 ML VIAL ONE (08:46)
--- NOTE | 2017-01-19 09:34 | PD.RAD ---
Post Procedure Progress Note Pre Procedure Diagnosis: (1) Lung mass Post Procedure Diagnosis: (1) Lung mass Procedure Date: Jan 19, 2017 Supervising Radiologist: Billy Sheridan Estimated blood loss: 2cc Anesthesia: Local, Conscious Sedation Plan of Activity Patient to Unit: [facility] Patient Condition: Fair Additional Comments: Port placed via the right IJ. Catheter in good position OK for use. Full dictated report to follow. See PACS Report for procedural detail/treatment Billy Sheridan MD Jan 19, 2017 09:34
[2017-01-19] MEDS ORDERED: SODIUM CHLORIDE 0.9% FLUSH 10 ML FLUSH IVF PRN (09:45)
[2017-01-19 09:48] VITALS: BP 120/72; PULSE 89; RESP 18; TEMP 97.6; O2SAT 99
[2017-01-19 10:18] VITALS: BP 114/75; PULSE 85; RESP 17; O2SAT 99
[2017-01-19 10:48] VITALS: BP 132/74; PULSE 84; RESP 18; O2SAT 99
--- NOTE | 2017-01-19 10:51 | RADRPT ---
EXAM DATE/TIME: 01/19/2017 10:08 [facility] COMPARISON: CT THORAX W/O CONTRAST INSP/EXPIR, NAVIGATION, January 03, 2017, 12:19. INDICATIONS : Post port placement. Evaluate for pneumothorax. MEDICAL HISTORY : Carcinoma, lung. SURGICAL HISTORY : None. ENCOUNTER: Initial ACUITY: 1 day PAIN SCORE: 0/10 LOCATION: Bilateral chest FINDINGS: The cardiac silhouette is normal in transverse diameter. [id number] is in place via left subclavi an approach with its tip in the superior vena cava. Right hilar mass is again identified. There is no evidence of pneumothorax. CONCLUSION: 1. There is no evidence of pneumothorax. Tk Lara MD on January 19, 2017 at 10:35 Board Certified Radiologist. This report was verified electronically.
--- NOTE | 2017-01-19 10:59 | RADRPT ---
EXAM DATE/TIME: 01/19/2017 08:36 [facility] COMPARISON: No previous studies available for comparison. INDICATIONS : Patient with right lung mass in need of left [id number] placement. MEDICAL HISTORY : Bronchogenic carcinoma, COPD, Hypothyroidism, Hyponatremia SURGICAL HISTORY : Bronchoscopy, Lung biopsy ENCOUNTER: Initial ACUITY: 2 months PAIN SCORE: 7/10 LOCATION: Mid-chest FLUORO TIME: 0.8 minutes IMAGE SERIES: 1 SEDATION TIME: 15 minutes ACCESS: Left subclavian vein SEDATION: 1.) 3 mg midazolam (Versed) IV 2.) 75 mcg fentanyl (Sublimaze) IV Prophylactic antibiotics were administered with appropriate pre-procedure timing. Vancomycin within 2 hours of procedure, Ancef (or alternative) within 1 hour of procedure. DEVICE: 1. 8 [place] single lumen Smart power port with vortex PROCEDURE : 1. Continuous pulse oximetry and EKG monitoring. 2. Intravenous conscious sedation. 3. Ultrasound guidance for venous access. 4. Fluoroscopic guided implantable central venous port placement. The patient imaging was reviewed prior to the procedure. The patient had a right upper lobe mass. The decision was made to place the port on the left. Due to the lack of subcutaneous soft tissue the dec ision was made to place the port via the subclavian vein. The patient was placed supine. The neck was prepped in sterile fashion. Full sterile technique was u sed, including cap, mask, sterile gloves and gown, and a large sterile sheet. Hand hygiene and 2% ch lorhexidine Betadine was utilized per protocol for cutaneous antisepsis with appropriate dry time for site. Sterile gel and sterile probe cover were utilized for ultrasound guidance. The skin and sub cutaneous tissues were infiltrated with local anesthetic solution. Under direct ultrasound guidance, central venous access was via the left subclavian vein targeted ves dannie. The ultrasound images depicting access guidance were stored and saved to PACS for permanent rec ord. A subcutaneous pocket was created using blunt dissection. The port was introduced to the pocke t. The catheter tubing was fed through a subcutaneous tunnel to the venotomy site. The catheter tub ing was cut to a suitable length and then was introduced through a valved Peel-Away sheath and positi oned with catheter tubing tip at the cavo-atrial junction level. The pocket incision was closed with subcuticular Vicryl suture. Steri-Strips were applied. The port was flushed and locked with hepari n solution per protocol. Sterile dressing was applied to the site. The patient tolerated the proced ure well. Conscious sedation was performed with the prescribed dosages and duration as above in the presence of an independent trained radiology nurse to assist in the monitoring of the patient. EKG and oximetry remained stable throughout the procedure. The patient tolerated the procedure well and there were no complications. The patient was sent to post anesthesia recovery in stable condition. CONCLUSION: Uncomplicated ultrasound and fluoroscopic guided implanted central venous port catheter placement as described in detail above. An 8 Y[place]ut Power port was placed. Billy Sheridan MD on January 19, 2017 at 10:57 Board Certified Radiologist. This report was verified electronically.
[2017-01-19 11:48] VITALS: BP 137/78; PULSE 83; RESP 17; O2SAT 99
== END 2017-01-19 12:00 | disposition home or self-care (01) ==
LOC: HROP 06:15 → HRIP 06:17 → HROP 12:00
PROVIDERS: ATTEND Internal Medicine Hematology & Oncology
DX: Z45.2 Encounter for adjustment and management of vascular access device (principal); C34.90 Malignant neoplasm of unspecified part of unspecified bronchus or lung; J44.9 Chronic obstructive pulmonary disease, unspecified; Z01.812 Encounter for preprocedural laboratory examination
CPT/HCPCS: 36561; 71010; 76937; 77001; 85610; 85730; 99152; C1788; J0690; J1642; J2250; J3010; J3370; J7030; J7050

== ENCOUNTER 2017-06-17 11:26 | Emergency (ER) | payer MEDICAID ==
[~2017-06-17] VITALS: Ht 170.2 cm; Wt 50.0 kg
[2017-06-17 11:40] VITALS: BP 134/77; PULSE 99; RESP 18; TEMP 97.2; O2SAT 98
[2017-06-17 12:52] LABS: AUTOMATED NEUTROPHIL # 3.7 TH/MM3 (1.8-7.7); BASOPHIL % 0.7 % (0.0-2.0); EOSINOPHIL # 0.1 TH/MM3 (0-0.4); EOSINOPHIL % 1.5 % (0.0-4.0); HEMATOCRIT 42.2 % (35.0-46.0); HEMOGLOBIN 14.3 GM/DL (11.6-15.3); LYMPH % 18.4 % (9.0-44.0); MEAN CELL VOLUME 102.4 FL (80.0-100.0); MEAN CORPUSCULAR HEMOGLOBIN 34.8 PG (27.0-34.0); MEAN PLATELET VOLUME 8.2 FL (7.0-11.0); MONO % 11.6 % (0.0-8.0); MONOCYTE # 0.6 TH/MM3 (0-0.9); NEUT % 67.8 % (16.0-70.0); PLATELET COUNT 244 TH/MM3 (150-450); RED BLOOD COUNT 4.12 MIL/MM3 (4.00-5.30); RED CELL DISTRIBUTION WIDTH 14.5 % (11.6-17.2); WHITE BLOOD COUNT 5.4 TH/MM3 (4.0-11.0)
[2017-06-17 13:20] LABS: BICARBONATE 29.7 MEQ/L (21.0-32.0); BLOOD UREA NITROGEN 11 MG/DL (7-18); CALCIUM 9.3 MG/DL (8.5-10.1); CHLORIDE 104 MEQ/L (98-107); CREATININE 0.79 MG/DL (0.50-1.00); GLOMERULAR FILTRATION RATE 75 ML/MIN (>89); GLUCOSE,RANDOM 92 MG/DL (74-106); SODIUM (NA) 139 MEQ/L (136-145); TROPONIN I LESS THAN 0.02 NG/ML (0.02-0.05)
--- NOTE | 2017-06-17 14:48 | EKG ---
Date Performed: 06/17/2017 Time Performed: 11:59:46 PTAGE: 56 years EKG: Normal Sinus rhythm with With first degree A-V block Compared to prior electrocardiogram, rate has increased PREVIOUS TRACING : 12/16/2016 09.48 DOCTOR: Bethel Woods Interpretating Date/Time 06/17/2017 14:47:51
[2017-06-17] MEDS ORDERED: LORA-392 PO (15:27)
[2017-06-17 15:29] VITALS: BP 142/74; PULSE 90; RESP 17; O2SAT 99
[2017-06-17] MEDS ORDERED: ONDANSETRON HCL 4 MG/2 ML VIAL IV PUSH ONE (15:45)
[2017-06-17] MEDS ORDERED: SODIUM CHLOR 0.9% 1000 ML INJ 1,000 ML IV ONE (15:45)
[2017-06-17] MEDS ORDERED: MORPHINE SULFATE 4 MG/ML INJ IV PUSH ONE (15:45)
--- NOTE | 2017-06-17 15:49 | PD ---
HPI Chief Complaint: Abdominal Pain Time Seen by Provider: 15:27 Travel History International Travel<30 days: No Contact w/Intl Traveler<30days: No Traveled to known affect area: No History of Present Illness HPI 56-year-old female presents to the emergency department for evaluation of bilateral lower chest pain that started 2 days ago after she sneezed. Patient states it is constant, currently 7/10, aching and throbbing that radiates up the right chest to her report. Patient reports history of lung cancer. She states that she has just recently stopped chemotherapy and radiation therapy. She is due for a PET scan later this month to make sure she is clear of cancer. The patient denies any abdominal pain. No nausea, vomiting, diarrhea, constipation, urinary symptoms. Patient denies any exacerbating or alleviating factors. Patient's oncologist is Dr. Hickey. Moderate severity. PFSH Past Medical History Arthritis: No Asthma: No Cancer: Yes (r lung ca) Chemotherapy: Yes (HX) Congestive Heart Failure: No COPD: No Cerebrovascular Accident: No Coronary Artery Disease: No Diabetes: No Diminished Hearing: No Endocrine: Yes GERD: No Glaucoma: No Genitourinary: No Hepatitis: No Hiatal Hernia: No Hypertension: No Immune Disorder: No Musculoskeletal: Yes (osteoporosis) Neurologic: No Psychiatric: No Reproductive: No Respiratory: Yes (right side mass) Migraines: No Seizures: No Sleep Apnea: No Thyroid Disease: Yes (hypothyroidism) Ulcer: No Menopausal: Yes Tubal Ligation: Yes Past Surgical History Abdominal Surgery: No AICD: No Cardiac Surgery: No Ear Surgery: No Endocrine Surgery: No Eye Surgery: No Genitourinary Surgery: No Gynecologic Surgery: Yes (TUBAL LIGATION) Joint Replacement: No Neurologic Surgery: No Oral Surgery: No Pacemaker: No Thoracic Surgery: No Other Surgery: Yes Social History Alcohol Use: No Tobacco Use: No Substance Use: No Allergies-Medications (Allergen,Severity, Reaction): Coded Allergies: No Known Allergies (Verified Adverse Reaction, Unknown, 06/17/17) Reported Meds & Prescriptions Reported Meds & Active Scripts Active Reported Ativan (Lorazepam) 0.5 Mg Tab 0.5 Mg PO Q4H PRN Fosamax (Alendronate Sodium) 70 Mg Tab 70 Mg PO Q7D Levothyroxine (Levothyroxine Sodium) 88 Mcg Tab 88 Mcg PO DAILY Review of Systems Except as stated in HPI: all other systems reviewed are Neg Physical Exam Narrative GENERAL: Well-nourished, well-developed female patient, afebrile. SKIN: Focused skin assessment warm/dry. HEAD: Normocephalic. Atraumatic EYES: No scleral icterus. No injection or drainage. NECK: Supple, trachea midline. No JVD or lymphadenopathy. CARDIOVASCULAR: Regular rate and rhythm without murmurs, gallops, or rubs. Bilateral radial and pedal pulses are 2+. RESPIRATORY: Breath sounds equal bilaterally. No accessory muscle use. Lungs sounds are clear to auscultation. GASTROINTESTINAL: Abdomen soft, non-tender, nondistended. No abdominal pain to palpation. MUSCULOSKELETAL: No cyanosis, or edema. Bilateral lower chest wall is reproducible with palpation. This is along patient's bra line. BACK: Nontender without obvious deformity. No CVA tenderness. Data Data Last Documented VS Vital Signs Date Time Temp Pulse Resp B/P (MAP) Pulse Ox O2 Delivery O2 Flow Rate FiO2 06/17/17 15:29 90 17 142/74 (96) 99 Room Air 06/17/17 11:40 97.2 Orders Orders Electrocardiogram (06/17/17 11:43) Complete Blood Count With Diff (06/17/17 11:43) Basic Metabolic Panel (Bmp) (06/17/17 11:43) Ckmb (Isoenzyme) Profile (06/17/17 11:43) Troponin I (06/17/17 11:43) Hepatic Functional Panel (06/17/17 15:41) Lipase (06/17/17 15:41) Ct Pulmonary Angiogram (06/17/17 ) Sodium Chlor 0.9% 1000 Ml Inj (Ns 1000 M (06/17/17 15:45) Morphine Inj (Morphine Inj) (06/17/17 15:45) Ondansetron Inj (Zofran Inj) (06/17/17 15:45) Iohexol 350 Inj (Omnipaque 350 Inj) (06/17/17 17:46) Labs Laboratory Tests Test 06/17/17 12:05 White Blood Count 5.4 TH/MM3 Red Blood Count 4.12 MIL/MM3 Hemoglobin 14.3 GM/DL Hematocrit 42.2 % Mean Corpuscular Volume 102.4 FL Mean Corpuscular Hemoglobin 34.8 PG Mean Corpuscular Hemoglobin Concent 34.0 % Red Cell Distribution Width 14.5 % Platelet Count 244 TH/MM3 Mean Platelet Volume 8.2 FL Neutrophils (%) (Auto) 67.8 % Lymphocytes (%) (Auto) 18.4 % Monocytes (%) (Auto) 11.6 % Eosinophils (%) (Auto) 1.5 % Basophils (%) (Auto) 0.7 % Neutrophils # (Auto) 3.7 TH/MM3 Lymphocytes # (Auto) 1.0 TH/MM3 Monocytes # (Auto) 0.6 TH/MM3 Eosinophils # (Auto) 0.1 TH/MM3 Basophils # (Auto) 0.0 TH/MM3 CBC Comment DIFF FINAL Differential Comment Blood Urea Nitrogen 11 MG/DL Creatinine 0.79 MG/DL Random Glucose 92 MG/DL Calcium Level 9.3 MG/DL Sodium Level 139 MEQ/L Potassium Level 4.5 MEQ/L Chloride Level 104 MEQ/L Carbon Dioxide Level 29.7 MEQ/L Anion Gap 5 MEQ/L Estimat Glomerular Filtration Rate 75 ML/MIN Total Bilirubin 0.3 MG/DL Direct Bilirubin 0.1 MG/DL Indirect Bilirubin 0.2 MG/DL Aspartate Amino Transf (AST/SGOT) 38 U/L Alanine Aminotransferase (ALT/SGPT) 41 U/L Alkaline Phosphatase 111 U/L Total Creatine Kinase 66 U/L Troponin I LESS THAN 0.02 NG/ML Total Protein 8.3 GM/DL Albumin 4.0 GM/DL Lipase 247 U/L [facility] Medical Decision Making Medical Screen Exam Complete: Yes Emergency Medical Condition: Yes Medical Record Reviewed: Yes Interpretation(s) ct pulmonary angiogram - CONCLUSION: 1. No evidence of pulmonary embolus. 2. Right lung mass the lungs are seen. Scarring is now seen in this location. 3. Pulmonary emphysema again noted. Differential Diagnosis Chest wall pain versus pneumonia versus pneumothorax versus PE versus mass Narrative Course 56-year-old female presents to the emergency department for evaluation of bilateral lower chest pain that started 2 days ago. EKG shows sinus rhythm, heart rate 96, no acute ST changes. CBC shows no acute abnormality. CMP shows no acute abnormality. Lipase is 247. CK is 66. Troponin is less than 0.02. Patient is given normal saline 1 L IV bolus, morphine 4 mg IV, Zofran [address] pulmonary angiogram is ordered and shows no evidence of PE, scarring, emphysematous changes. I discussed the case attending physician, Dr. Venegas, who agrees with plan and disposition. Patient is stable for discharge home to follow up with Dr. Hickey. She is return here for any acute worsening of symptoms. She verbalizes agreement and understanding. Diagnosis Primary Impression: Chest wall pain Referrals: Lillian Hickey MD call for appointment Patient Instructions: Chest Wall Pain (ED), General Instructions Additional Instructions: Follow up with Dr. Hickey. Return to the emergency department for any acute, worsening of symptoms. Med/Other Pt SpecificInfo: No Change to Meds Disposition: 01 DISCHARGE HOME Condition: Stable Michelle Hassan Jun 17, 2017 15:49
[2017-06-17 16:57] LABS: DIRECT BILIRUBIN ADULT 0.1 MG/DL (0.0-0.2)
[2017-06-17 16:59] LABS: INDIRECT BILIRUBIN 0.2 MG/DL (0.0-0.8); TOTAL BILIRUBIN ADULT 0.3 MG/DL (0.2-1.0); TOTAL PROTEIN 8.3 GM/DL (6.4-8.2)
[2017-06-17] MEDS ORDERED: IOHEXOL 350 MG/ML 10 ML VIAL (for RAD DIAG) IVCONTRAST ONE (17:46)
--- NOTE | 2017-06-17 18:04 | RADRPT ---
EXAM DATE/TIME: 06/17/2017 17:44 [facility] COMPARISON: CT THORAX W CONTRAST, December 27, 2016, 17:23. CT THORAX W/O CONTRAST INSP/EXPIR, NAVIGATION, Sept emb2016, 12:19. INDICATIONS : Short of breath. IV CONTRAST: 64 cc Omnipaque 350 (iohexol) IV RADIATION DOSE: 5.02 CTDIvol (mGy) MEDICAL HISTORY : Carcinoma, lung. Cardiovascular disease SURGICAL HISTORY : Tubal ligation. ENCOUNTER: Initial ACUITY: 1 day PAIN SCALE: 5/10 LOCATION: chest TECHNIQUE: Volumetric scanning of the chest was performed using a pulmonary embolism protocol MIP images were re constructed. Using automated exposure control and adjustment of the mA and/or kV according to patien t size, radiation dose was kept as low as reasonably achievable to obtain optimal diagnostic quality images. DICOM format image data is available electronically for review and comparison. Follow-up recommendations for detected pulmonary nodules are based at a minimum on nodule size and pa tient risk factors according to Fleischner Society Guidelines. FINDINGS: PULMONARY ARTERIES: No filling defects are seen in the pulmonary arteries through the segmental level. LUNGS: Pulmonary emphysema is again noted and unchanged. Scarring is identified in the right anterior upper lobe. Scarring also identified in the apices. PLEURAE: There is no pleural thickening or pleural effusion. MEDIASTINUM: There is good visualization of the great vessels of the middle mediastinum. No evidence of mediastin al or hilar adenopathy/mass. MUSCULOSKELETAL: Within normal limits for patient age. MISCELLANEOUS: Upper abdomen unremarkable. CONCLUSION: 1. No evidence of pulmonary embolus. 2. Right lung mass the lungs are seen. Scarring is now seen in this location. 3. Pulmonary emphysema again noted. Chas Ivy MD on June 17, 2017 at 17:58 Board Certified Radiologist. This report was verified electronically.
== END 2017-06-17 18:36 | disposition home or self-care (01) ==
LOC: NEPC 11:26
DX: R07.89 Other chest pain (principal); R91.8 Other nonspecific abnormal finding of lung field; J43.9 Emphysema, unspecified; I44.0 Atrioventricular block, first degree; M81.0 Age-related osteoporosis without current pathological fracture; E03.9 Hypothyroidism, unspecified; Z79.899 Other long term (current) drug therapy; Z85.118 Personal history of other malignant neoplasm of bronchus and lung
CPT/HCPCS: 71275; 80048; 80076; 82550; 83690; 84484; 85025; 93005; 96361; 96374; 96375; 99285; J2270; J2405; J7030; Q9967

== ENCOUNTER 2017-07-13 12:41 | Day surgery (SDC) | payer MEDICAID ==
[~2017-07-13 12:41] MED LIST changes: -DEME150T2 PO; +LORA-392 PO; -SODI1TAB PO
[2017-07-13 13:15] VITALS: BP 137/97; PULSE 112; RESP 16; TEMP 98.3; O2SAT 98
[2017-07-13 13:34] VITALS: BP 127/84; PULSE 114; RESP 16; O2SAT 98
[2017-07-13] MEDS ORDERED: LIDOCAINE HCL 1% PF 30 ML VIAL ONE (14:08)
[2017-07-13 14:15] VITALS: BP_SYST 131; BP_DIAS 75; BP_DIAS 80; PULSE 101; PULSE 99; RESP 16; RESP 20; TEMP 97.6; O2SAT 93; O2SAT 96
[2017-07-13 14:30] VITALS: BP 124/82; PULSE 101; RESP 16; O2SAT 96
--- NOTE | 2017-07-13 14:43 | RADRPT ---
EXAM DATE/TIME: 07/13/2017 13:01 [facility] COMPARISON: No previous studies available for comparison. EXTERNAL COMPARISON: [facility], PET/ CT TUMOR, Jul 05 2017. [facility] PET/CT TUMOR 01/30/17 INDICATIONS : Right supraclavicular lymph node. MEDICAL HISTORY : Hypothyroidism. Carcinoma, lung. Radiation. SURGICAL HISTORY : Tubal ligation. Bronchoscopy. ENCOUNTER: Subsequent ACUITY: 2 weeks PAIN SCORE: 0/10 LOCATION: Right neck ORGAN: Right lymph node SPECIMENS: Three core specimen(s) submitted for pathologic evaluation. DEVICE: 18 gauge Temno needle Post procedure scanning reveals no hematoma or other complication. The possibility does exist that the tissue obtained will be non-diagnostic. If the sample is non-christa gnostic a repeat biopsy or surgical biopsy may need to be performed. TECHNIQUE: 1. Ultrasound guidance for needle biopsy. 2. Needle biopsy. 3, 18 gauge cores were obtained The risks, benefits and alternatives to the procedure were explained and verbal and written consent w as obtained. The site was prepped in sterile fashion. Full sterile technique was used, including ca p, mask, sterile gloves and gown and a large sterile sheet. Hand hygiene and 2% chlorhexidine and/or betadine/alcohol prep was utilized per protocol for cutaneous antisepsis. The skin and subcutaneous tissues were infiltrated with local anesthetic solution. Sterile gel and sterile probe cover were u tilized for ultrasound guidance. With the patient on the ultrasound table, images were obtained. A needle was advanced into the identified target and the number of specimens as above obtained and ma bmitted for pathologic evaluation. The patient tolerated the procedure well and left the ultrasound suite in stable condition. CONCLUSION: Uncomplicated ultrasound guided needle biopsy. 3, 18 gauge cores were obtained. Kirill Mayen MD on July 13, 2017 at 14:40 Board Certified Radiologist. This report was verified electronically.
== END 2017-07-13 14:45 | disposition home or self-care (01) ==
LOC: HRAD 12:41 → HRIP 12:43 → HRAD 14:45
PROVIDERS: ATTEND Radiology Radiation Oncology
DX: R59.0 Localized enlarged lymph nodes (principal); C34.11 Malignant neoplasm of upper lobe, right bronchus or lung; E03.9 Hypothyroidism, unspecified
CPT/HCPCS: 38505; 76942; 88305; 88307

== ENCOUNTER 2017-09-19 09:40 | Emergency (ER) | payer MEDICAID ==
[~2017-09-19] VITALS: Ht 167.6 cm; Wt 48.5 kg
[2017-09-19 09:45] VITALS: BP 154/70; PULSE 110; RESP 22; TEMP 99.8; O2SAT 99
[2017-09-19 10:18] VITALS: BP 150/81; PULSE 103; RESP 14; O2SAT 98
[2017-09-19 10:40] VITALS: O2SAT 97
[2017-09-19 10:45] LABS: AUTOMATED NEUTROPHIL # 1.9 TH/MM3 (1.8-7.7); BASOPHIL % 0.5 % (0.0-2.0); EOSINOPHIL % 1.3 % (0.0-4.0); HEMATOCRIT 33.4 % (35.0-46.0); HEMOGLOBIN 11.2 GM/DL (11.6-15.3); LYMPH % 18.4 % (9.0-44.0); LYMPHOCYTE # 0.6 TH/MM3 (1.0-4.8); MEAN CELL VOLUME 94.7 FL (80.0-100.0); MEAN CORPUSCULAR HEMOGLOBIN 31.7 PG (27.0-34.0); MEAN CORPUSCULAR HGB CONC 33.4 % (32.0-36.0); MEAN PLATELET VOLUME 8.3 FL (7.0-11.0); MONO % 19.2 % (0.0-8.0); MONOCYTE # 0.6 TH/MM3 (0-0.9); NEUT % 60.6 % (16.0-70.0); PLATELET COUNT 116 TH/MM3 (150-450); RED BLOOD COUNT 3.53 MIL/MM3 (4.00-5.30); RED CELL DISTRIBUTION WIDTH 15.9 % (11.6-17.2); WHITE BLOOD COUNT 3.2 TH/MM3 (4.0-11.0)
[2017-09-19 11:01] LABS: PROTHROMBIN TIME - PATIENT 9.7 SEC (9.8-11.6)
[2017-09-19 11:03] LABS: D-DIMER 0.67 MG/L FEU (0.00-0.50)
[2017-09-19 11:06] LABS: TROPONIN I LESS THAN 0.02 NG/ML (0.02-0.05)
[2017-09-19 11:44] LABS: ALBUMIN 3.7 GM/DL (3.4-5.0); AST (GOT) 23 U/L (15-37); BICARBONATE 24.2 MEQ/L (21.0-32.0); BLOOD UREA NITROGEN 9 MG/DL (7-18); CALCIUM 9.3 MG/DL (8.5-10.1); CHLORIDE 104 MEQ/L (98-107); CREATININE 0.66 MG/DL (0.50-1.00); GLOMERULAR FILTRATION RATE 92 ML/MIN (>89); GLUCOSE,RANDOM 92 MG/DL (74-106); SODIUM (NA) 138 MEQ/L (136-145)
[2017-09-19 11:45] LABS: ALT (GPT) 25 U/L (10-53)
[2017-09-19] MEDS ORDERED: MORPHINE SULFATE 4 MG/ML INJ IV PUSH ONE (11:45)
[2017-09-19] MEDS ORDERED: METOCLOPRAMIDE HCL 10 MG/2 ML VIAL IV PUSH ONE (11:45)
--- NOTE | 2017-09-19 11:45 | RADRPT ---
EXAM DATE: 09/19/2017 11:22 AM EDT AGE/SEX: 56 years / Female INDICATIONS: Short of breath. CLINICAL DATA: This is the patient's initial encounter. Patient reports that signs and symptoms have been present for 1 day and indicates a pain score of 8/10. MEDICAL/SURGICAL HISTORY: Carcinoma, lung. . [facility]. COMPARISON: No prior exams available for comparison. FINDINGS: Lungs are hyperinflated. There is coarsening of the interstitial markings. Mild pleural thickening is seen in the apices. Left-sided Saywrb-h-Rgrj is noted in place. Heart and mediastinal structures are unremarkable. Osseous structures are intact. CONCLUSION: 1. COPD 2. No evidence of acute cardiopulmonary process. 3. Left-sided Gponvf-[id number]. Electronically signed by: Jacobo Ji MD 09/19/2017 11:44 AM EDT
[2017-09-19 11:47] LABS: ALKALINE PHOSPHATASE 106 U/L (45-117); TOTAL BILIRUBIN ADULT 0.3 MG/DL (0.2-1.0); TOTAL PROTEIN 7.7 GM/DL (6.4-8.2)
[2017-09-19 12:00] VITALS: BP 115/60; PULSE 96; RESP 17; O2SAT 98
--- NOTE | 2017-09-19 12:09 | PD ---
HPI Chief Complaint: Pain: Acute or Chronic Time Seen by Provider: 11:12 Travel History International Travel<30 days: No Contact w/Intl Traveler<30days: No Traveled to known affect area: No History of Present Illness HPI 56-year-old female that presents to the ED for evaluation of pain to her right chest with deep breaths. Per patient she went to her radiologist oncologist appointment today [facility] and the doctor evaluate her as the machine apparently was down and could not get her radiation. The doctor at the time was concerned because patient seemed to be tachycardic and having pain on her right chest and gets worse with deep breaths. Patient takes no blood thinners but does do chemo and radiation. 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 She had originally lung cancer. She denies any recent chemo but she had radiation yesterday. She denies any other medical issues at this time. Per patient her pain is 8 out of 10. Takes her breath away. No history of blood clots in the past. She was sent here to rule out pneumonia versus blood clots. Has no allergies to medication. No other medical issues at this time. Takes no pain medications. PFSH Past Medical History Arthritis: No Asthma: No Cancer: Yes (r lung ca) Chemotherapy: Yes (HX) Congestive Heart Failure: No COPD: No Cerebrovascular Accident: No Coronary Artery Disease: No Diabetes: No Diminished Hearing: No Endocrine: Yes GERD: No Glaucoma: No Genitourinary: No Hepatitis: No Hiatal Hernia: No Hypertension: No Immune Disorder: No Musculoskeletal: Yes (osteoporosis) Neurologic: No Psychiatric: No Reproductive: No Respiratory: Yes (right side mass) Migraines: No Seizures: No Sleep Apnea: No Thyroid Disease: Yes (hypothyroidism) Ulcer: No Tetanus Vaccination: < 5 Years Influenza Vaccination: No ?: Not Menopausal: Yes Tubal Ligation: Yes Past Surgical History Abdominal Surgery: No AICD: No Cardiac Surgery: No Ear Surgery: No Endocrine Surgery: No Eye Surgery: No Genitourinary Surgery: No Gynecologic Surgery: Yes (TUBAL LIGATION) Joint Replacement: No Neurologic Surgery: No Oral Surgery: No Pacemaker: No Thoracic Surgery: No Other Surgery: Yes Social History Alcohol Use: No Tobacco Use: No Substance Use: No Allergies-Medications (Allergen,Severity, Reaction): Coded Allergies: No Known Allergies (Verified Adverse Reaction, Unknown, 09/19/17) Reported Meds & Prescriptions Reported Meds & Active Scripts Active Levaquin (Levofloxacin) 750 Mg Tablet 750 Mg PO DAILY 7 Days Hydrocodone-Acetaminophen 5-325 mg Tab 1 Tab PO Q6H PRN Reported Ativan (Lorazepam) 0.5 Mg Tab 0.5 Mg PO Q4H PRN Fosamax (Alendronate Sodium) 70 Mg Tab 70 Mg PO Q7D Levothyroxine (Levothyroxine Sodium) 88 Mcg Tab 88 Mcg PO DAILY Review of Systems Except as stated in HPI: all other systems reviewed are Neg Physical Exam Narrative GENERAL: SKIN: Warm and dry. HEAD: Atraumatic. Normocephalic. EYES: Pupils equal and round. No scleral icterus. No injection or drainage. ENT: No nasal bleeding or discharge. Mucous membranes pink and moist. Tongue is midline. No uvula deviation. NECK: Trachea midline. No JVD. CARDIOVASCULAR: Regular rate and rhythm. No murmurs, S3, S4. RESPIRATORY: No accessory muscle use. Clear to auscultation. Breath sounds equal bilaterally. GASTROINTESTINAL: Abdomen soft, non-tender, nondistended. Hepatic and splenic margins not palpable. MUSCULOSKELETAL: Extremities without clubbing, cyanosis, or edema. No obvious deformities. Full range of motion of the upper and lower extremities bilaterally. 2+ pulses bilaterally. NEUROLOGICAL: Awake and alert. No obvious cranial nerve deficits. Motor grossly within normal limits. Five out of 5 muscle strength in the arms and legs. Normal speech. PSYCHIATRIC: Appropriate mood and affect; insight and judgment normal. Data Data Last Documented VS Vital Signs Date Time Temp Pulse Resp B/P (MAP) Pulse Ox O2 Delivery O2 Flow Rate FiO2 09/19/17 10:40 97 Room Air 09/19/17 10:18 103 14 09/19/17 09:45 99.8 Orders Orders Electrocardiogram (09/19/17 10:19) Complete Blood Count With Diff (09/19/17 10:19) Ckmb (Isoenzyme) Profile (09/19/17 10:19) Troponin I (09/19/17 10:19) Iv Access Insert/Monitor (09/19/17 10:19) Ecg Monitoring (09/19/17 10:19) Oxygen Administration (09/19/17 10:19) Oximetry (09/19/17 10:19) Prothrombin Time / Inr (Pt) (09/19/17 10:19) D-Dimer (09/19/17 10:19) Chest, Pa & Lat (09/19/17 ) Comprehensive Metabolic Panel (09/19/17 11:16) Ct Pulmonary Angiogram (09/19/17 ) Morphine Inj (Morphine Inj) (09/19/17 11:45) Metoclopramide Inj (Reglan Inj) (09/19/17 11:45) Iohexol 350 Inj (Omnipaque 350 Inj) (09/19/17 12:54) Levofloxacin (Levaquin) (09/19/17 14:15) Labs Laboratory Tests Test 09/19/17 10:20 White Blood Count 3.2 TH/MM3 Red Blood Count 3.53 MIL/MM3 Hemoglobin 11.2 GM/DL Hematocrit 33.4 % Mean Corpuscular Volume 94.7 FL Mean Corpuscular Hemoglobin 31.7 PG Mean Corpuscular Hemoglobin Concent 33.4 % Red Cell Distribution Width 15.9 % Platelet Count 116 TH/MM3 Mean Platelet Volume 8.3 FL Neutrophils (%) (Auto) 60.6 % Lymphocytes (%) (Auto) 18.4 % Monocytes (%) (Auto) 19.2 % Eosinophils (%) (Auto) 1.3 % Basophils (%) (Auto) 0.5 % Neutrophils # (Auto) 1.9 TH/MM3 Lymphocytes # (Auto) 0.6 TH/MM3 Monocytes # (Auto) 0.6 TH/MM3 Eosinophils # (Auto) 0.0 TH/MM3 Basophils # (Auto) 0.0 TH/MM3 CBC Comment DIFF FINAL Differential Comment Prothrombin Time 9.7 SEC Prothromb Time International Ratio 1.0 RATIO D-Dimer Quantitative (PE/DVT) 0.67 MG/L FEU Blood Urea Nitrogen 9 MG/DL Creatinine 0.66 MG/DL Random Glucose 92 MG/DL Total Protein 7.7 GM/DL Albumin 3.7 GM/DL Calcium Level 9.3 MG/DL Alkaline Phosphatase 106 U/L Aspartate Amino Transf (AST/SGOT) 23 U/L Alanine Aminotransferase (ALT/SGPT) 25 U/L Total Bilirubin 0.3 MG/DL Sodium Level 138 MEQ/L Potassium Level 3.7 MEQ/L Chloride Level 104 MEQ/L Carbon Dioxide Level 24.2 MEQ/L Anion Gap 10 MEQ/L Estimat Glomerular Filtration Rate 92 ML/MIN Total Creatine Kinase 50 U/L Troponin I LESS THAN 0.02 NG/ML MDM Medical Decision Making Medical Screen Exam Complete: Yes Emergency Medical Condition: Yes Medical Record Reviewed: Yes Interpretation(s) Last Impressions Chest X-Ray 09/19/17 0000 Signed Impressions: CONCLUSION: 1. COPD 2. No evidence of acute cardiopulmonary process. 3. Left-sided Joldlu-d-Kyuz. CT Angiography 09/19/17 0000 Signed Impressions: CONCLUSION: 1. No pulmonary embolus identified. 2. 1.4 x 0.9 cm node in the right jaron unchanged compared to previous examinat ion. 3. Moderate COPD changes. 4. Biapical pleural thickening. 5. Small area of scarring in the right upper lobe. CBC & BMP Diagram 09/19/17 10:20 Total Protein 7.7, Albumin 3.7, Calcium Level 9.3, Alkaline Phosphatase 106, Aspartate Amino Transf (AST/SGOT) 23, Alanine Aminotransferase (ALT/SGPT) 25, Total Bilirubin 0.3 troponin and CKMB negative coags showed elevated d-dimmer Differential Diagnosis Pulmonary embolism versus lung mass versus pneumonia versus rib pain versus pleurisy Narrative Course 56-year-old female that presents to the ED for evaluation of right chest pain. Patient was properly examined and was found to have signs and symptoms consistent with appears to be concerning for pulmonary embolism secondary to her history and tachycardia. She does have a history of COPD and old history of smoking. History of cancer. She does have risk factors for PE and I do recommend CTA scan. Blood work was done by ED triage and did show a positive d- dimer. CT scan order. Patient was given IV pain medications. Otherwise blood work are essentially unremarkable other than for slightly low white blood cell count. Imaging showed no sign of acute disease. Patient was reassured. Patient does have COPD changes but otherwise unremarkable exam. Patient had relief with the morphine given. This is likely pleurisy with bronchitis. Because of the patient's medical history my attending recommends starting Levaquin and hydrocodone for pain. Patient agrees with this. Follow with primary care doctor and oncologist. See ED if worsening symptoms. All questions were answered to the best of my ability. My attending Dr. Betancur himself evaluated the patient. Diagnosis Primary Impression: Atypical chest pain Additional Impressions: Bronchitis Pleurisy Patient Instructions: General Instructions Additional Instructions: Take medications as prescribed. Follow-up with PCP. See ED for any worsening symptoms. Do not drink or drive while taking pain medication. Apply ice or heat as needed for pain Med/Other Pt SpecificInfo: Prescription(s) given Scripts Levofloxacin (Levaquin) 750 Mg Tablet 750 MG PO DAILY for Infection for 7 Days, #7 TAB 0 Refills Prov: Mendez Betancur MD 09/19/17 Hydrocodone-Acetaminophen (Hydrocodone-Acetaminophen) 5-325 mg Tab 1 TAB PO Q6H Y for PAIN, #14 TAB 0 Refills Prov: Mendez Betancur MD 09/19/17 Disposition: 01 DISCHARGE HOME Condition: Adebayo Monk Sep 19, 2017 12:09
[2017-09-19] MEDS ORDERED: IOHEXOL 350 MG/ML 10 ML VIAL (for RAD DIAG) IVCONTRAST ONE (12:54)
--- NOTE | 2017-09-19 13:56 | RADRPT ---
EXAM DATE: 09/19/2017 1:43 PM EDT AGE/SEX: 56 years / Female INDICATIONS: Embolism CLINICAL DATA: This is the patient's initial encounter. Patient reports that signs and symptoms have been present for 1 day and indicates a pain score of 3/10. MEDICAL/SURGICAL HISTORY: Hypothyroidism. Cardiovascular disease. Carcinoma, lung. None. RADIATION DOSE: 4.66 CTDI (mGy) [place] [facility] [place]. . TECHNIQUE: Volumetric scanning was performed using a multi-row detector CT scanner during bolus infu david of 75 ml Omnipaque 350 (iohexol) nonionic water-soluble contrast as a single exam dose. The rory a was post processed with a variety of visualization algorithms including full volume maximum intensi ty projection and sliding thin slab reformation. Using automated exposure control and adjustment of the mA and/or kV according to patient size, radiation dose was kept as low as reasonably achievable t o obtain optimal diagnostic quality images. FINDINGS: The examination is of good diagnostic quality. No pulmonary embolus is identified. The heart is normal in size. There is no significant mediastinal adenopathy. There is a 1.4 x 0.9 cm node in the right jaron. This is unchanged compared to previous exam dated 06/17/2017. Imaging through the pulmonary parenchyma demonstrates moderate COPD changes. There is no pericardial effusion. No pleural effusion is identified. There is biapical pleural thickening and a small area of scarring in the anterior aspect of the right upper lobe.. The appearance of the thoracic spine is unremarkable. CONCLUSION: 1. No pulmonary embolus identified. 2. 1.4 x 0.9 cm node in the right jaron unchanged compared to previous examination. 3. Moderate COPD changes. 4. Biapical pleural thickening. 5. Small area of scarring in the right upper lobe. Electronically signed by: Billy Sheridan MD 09/19/2017 1:55 PM EDT
--- NOTE | 2017-09-19 13:59 | EKG ---
Date Performed: 09/19/2017 Time Performed: 09:36:22 PTAGE: 56 years EKG: Sinus rhythm NORMAL ECG No significant change from prior electrocardiogram. PREVIOUS TRACING : 06/17/2017 11.59 DOCTOR: Bethel Woods Interpretating Date/Time 09/19/2017 13:58:11
[2017-09-19] MEDS ORDERED: HYDR-3516 PO (14:08)
[2017-09-19] MEDS ORDERED: LEVA750T9 PO (14:08)
[2017-09-19] MEDS ORDERED: LEVOFLOXACIN 750 MG TAB PO ONE (14:15)
[2017-09-19 14:21] VITALS: BP 117/64
== END 2017-09-19 14:24 | disposition home or self-care (01) ==
LOC: NEPE 09:40
DX: C34.91 Malignant neoplasm of unspecified part of right bronchus or lung (principal); R07.89 Other chest pain; R09.1 Pleurisy; J44.9 Chronic obstructive pulmonary disease, unspecified; E03.9 Hypothyroidism, unspecified; Z87.891 Personal history of nicotine dependence
CPT/HCPCS: 71046; 71275; 80053; 82550; 84484; 85025; 85379; 85610; 93005; 96374; 96375; 99285; J2270; J2765; Q9967

== ENCOUNTER 2017-10-02 10:35 | Emergency (ER) | payer MEDICAID ==
[~2017-10-02] VITALS: Ht 165.1 cm; Wt 48.0 kg
[~2017-10-02 10:35] MED LIST changes: +HYDR-3516 PO; +LEVA750T9 PO
[2017-10-02 10:52] VITALS: BP 149/63; PULSE 127; RESP 20; TEMP 97.6; O2SAT 99
[2017-10-02 11:55] LABS: AUTOMATED NEUTROPHIL # 3.8 TH/MM3 (1.8-7.7); BASOPHIL % 0.2 % (0.0-2.0); EOSINOPHIL % 0.3 % (0.0-4.0); HEMATOCRIT 35.4 % (35.0-46.0); HEMOGLOBIN 12.1 GM/DL (11.6-15.3); LYMPH % 13.2 % (9.0-44.0); LYMPHOCYTE # 0.6 TH/MM3 (1.0-4.8); MEAN CORPUSCULAR HEMOGLOBIN 32.8 PG (27.0-34.0); MEAN CORPUSCULAR HGB CONC 34.1 % (32.0-36.0); MEAN PLATELET VOLUME 8.6 FL (7.0-11.0); MONO % 3.7 % (0.0-8.0); MONOCYTE # 0.2 TH/MM3 (0-0.9); NEUT % 82.6 % (16.0-70.0); PLATELET COUNT 132 TH/MM3 (150-450); RED BLOOD COUNT 3.69 MIL/MM3 (4.00-5.30); RED CELL DISTRIBUTION WIDTH 18.2 % (11.6-17.2); WHITE BLOOD COUNT 4.7 TH/MM3 (4.0-11.0)
--- NOTE | 2017-10-02 12:02 | RADRPT ---
EXAM DATE: 10/02/2017 11:59 AM EDT AGE/SEX: 56 years / Female INDICATIONS: Lower chest pain. CLINICAL DATA: This is the patient's initial encounter. Patient reports that signs and symptoms have been present for 2 days and indicates a pain score of 8/10. MEDICAL/SURGICAL HISTORY: Chronic obstructive pulmonary disease. lung and lymph node cancer. . last chemo therapy session5 days ago. COMPARISON: C, CHEST PA & LAT, 09/19/2017. . FINDINGS: Yitvun-z-Ypik in good position. Lungs are clear. The heart and pulmonary vascularity are normal. The portion of the bony skeleton visualized is unremarkable. CONCLUSION: Negative for acute process Electronically signed by: James Sheridan MD 10/02/2017 12:01 PM EDT
[2017-10-02 12:20] LABS: ALBUMIN 4.1 GM/DL (3.4-5.0); AST (GOT) 25 U/L (15-37); BICARBONATE 25.8 MEQ/L (21.0-32.0); BLOOD UREA NITROGEN 12 MG/DL (7-18); CALCIUM 9.9 MG/DL (8.5-10.1); CHLORIDE 100 MEQ/L (98-107); CREATININE 0.84 MG/DL (0.50-1.00); GLOMERULAR FILTRATION RATE 70 ML/MIN (>89); GLUCOSE,RANDOM 113 MG/DL (74-106); SODIUM (NA) 136 MEQ/L (136-145)
[2017-10-02 12:26] LABS: ALKALINE PHOSPHATASE 109 U/L (45-117); ALT (GPT) 25 U/L (10-53); TOTAL BILIRUBIN ADULT 0.5 MG/DL (0.2-1.0); TOTAL PROTEIN 8.2 GM/DL (6.4-8.2); TROPONIN I LESS THAN 0.02 NG/ML (0.02-0.05)
[2017-10-02 12:35] VITALS: BP 136/93; PULSE 113; RESP 28; O2SAT 99
[2017-10-02 12:40] VITALS: PULSE 113; RESP 26; O2SAT 100
[2017-10-02] MEDS ORDERED: LEVO112T2 PO (12:40)
[2017-10-02] MEDS ORDERED: MORPHINE SULFATE 4 MG/ML INJ IV PUSH ONE (12:45)
[2017-10-02] MEDS ORDERED: SODIUM CHLOR 0.9% 1000 ML INJ 1,000 ML IV ONE (12:45)
[2017-10-02] MEDS ORDERED: METOCLOPRAMIDE HCL 10 MG/2 ML VIAL IV PUSH ONE (12:45)
--- NOTE | 2017-10-02 12:52 | PD ---
HPI Chief Complaint: Respiratory Symptoms Time Seen by Provider: 12:22 Travel History International Travel<30 days: No Contact w/Intl Traveler<30days: No Traveled to known affect area: No History of Present Illness HPI 56-year-old female presents to the emergency department for evaluation of right lower chest wall pain that started. Patient states is worse with taking a deep breath. Current pain is 8/10, aching, without radiation. Patient denies any left-sided chest pain. Patient is being treated for lung cancer. She had her last chemotherapy on Monday and had radiation therapy today. Her oncologist is Dr. Hickey. Her radiation therapy physician is Dr. Gee. Patient reports associated shortness of breath. No fevers or chills. No abdominal pain. No nausea, vomiting, diarrhea. Patient reports history of COPD and hypothyroidism. She states that Dr. Gee gave her a prescription for [place] today. Patient was seen in the emergency department on September 19, 2017. She states it was for the same pain. She underwent CT pulmonary angiogram which was negative for PE at that time. Patient was discharged prescription for [place] and Levaquin. She states she finished the Levaquin. She denies any other symptoms or complaints at this time. Moderate severity. PFSH Past Medical History Arthritis: No Asthma: No Cancer: Yes (r lung ca) Chemotherapy: Yes Congestive Heart Failure: No COPD: No Cerebrovascular Accident: No Coronary Artery Disease: No Diabetes: No Diminished Hearing: No Endocrine: Yes GERD: No Glaucoma: No Genitourinary: No Hepatitis: No Hiatal Hernia: No Hypertension: No Immune Disorder: No Musculoskeletal: Yes (osteoporosis) Neurologic: No Psychiatric: No Reproductive: No Respiratory: Yes Migraines: No Seizures: No Sleep Apnea: No Thyroid Disease: Yes (hypothyroidism) Ulcer: No Tetanus Vaccination: < 5 Years ?: Not Menopausal: Yes Tubal Ligation: Yes Past Surgical History Abdominal Surgery: No AICD: No Cardiac Surgery: No Ear Surgery: No Endocrine Surgery: No Eye Surgery: No Genitourinary Surgery: No Gynecologic Surgery: Yes (TUBAL LIGATION) Joint Replacement: No Neurologic Surgery: No Oral Surgery: No Pacemaker: No Thoracic Surgery: No Other Surgery: Yes Social History Alcohol Use: No Tobacco Use: No Substance Use: No Allergies-Medications (Allergen,Severity, Reaction): Coded Allergies: No Known Allergies (Verified Adverse Reaction, Unknown, 09/19/17) Reported Meds & Prescriptions Reported Meds & Active Scripts Active Levaquin (Levofloxacin) 750 Mg Tablet 750 Mg PO DAILY 7 Days Hydrocodone-Acetaminophen 5-325 mg Tab 1 Tab PO Q6H PRN Reported Levothyroxine (Levothyroxine Sodium) 112 Mcg Tab 112 Mcg PO DAILY Ativan (Lorazepam) 0.5 Mg Tab 0.5 Mg PO Q4H PRN Fosamax (Alendronate Sodium) 70 Mg Tab 70 Mg PO Q7D Review of Systems Except as stated in HPI: all other systems reviewed are Neg Physical Exam Narrative GENERAL: Well-nourished, well-developed female patient, ambulatory. Afebrile. SKIN: Focused skin assessment warm/dry. HEAD: Normocephalic. Atraumatic. ENT: Mucosa pink and moist. No erythema or exudates. No uvular edema. No uvular , palatal, or tonsillar deviation. Airway patent. Nasal turbinates appear normal without nasal blood, purulent drainage or septal hematoma. Bilateral tympanic membranes clear without erythema or perforation. EYES: No scleral icterus. No injection or drainage. NECK: Supple, trachea midline. No JVD or lymphadenopathy. CARDIOVASCULAR: Regular rhythm without murmurs, gallops, or rubs. Patient is tachycardic with HR 113. RESPIRATORY: Breath sounds equal bilaterally. No accessory muscle use. Lung sounds are clear to auscultation. GASTROINTESTINAL: Abdomen soft, non-tender, nondistended. MUSCULOSKELETAL: No cyanosis, or edema. BACK: Nontender without obvious deformity. No CVA tenderness. Data Data Last Documented VS Vital Signs Date Time Temp Pulse Resp B/P (MAP) Pulse Ox O2 Delivery O2 Flow Rate FiO2 10/02/17 16:12 85 18 143/81 (101) 99 Room Air 10/02/17 10:52 97.6 Orders Orders Sepsis Workup Initiated (10/02/17 ) Complete Blood Count With Diff (10/02/17 11:02) Comprehensive Metabolic Panel (10/02/17 11:02) Lactic Acid Sepsis Protocol (10/02/17 11:02) Blood Culture (10/02/17 11:02) Iv Access Insert/Monitor (10/02/17 11:02) Oxygen Administration (10/02/17 11:02) Oximetry (10/02/17 11:02) Blood Glucose (10/02/17 11:02) Electrocardiogram (10/02/17 11:02) Basic Metabolic Panel (Bmp) (10/02/17 11:02) Ckmb (Isoenzyme) Profile (10/02/17 11:02) Troponin I (10/02/17 11:02) Ecg Monitoring (10/02/17 11:02) Chest, Pa & Lat (10/02/17 11:02) Thyroid Stimulating Hormone (10/02/17 12:44) Sodium Chlor 0.9% 1000 Ml Inj (Ns 1000 M (10/02/17 12:45) Morphine Inj (Morphine Inj) (10/02/17 12:45) Metoclopramide Inj (Reglan Inj) (10/02/17 12:45) Labs Laboratory Tests Test 10/02/17 11:30 White Blood Count 4.7 TH/MM3 Red Blood Count 3.69 MIL/MM3 Hemoglobin 12.1 GM/DL Hematocrit 35.4 % Mean Corpuscular Volume 96.0 FL Mean Corpuscular Hemoglobin 32.8 PG Mean Corpuscular Hemoglobin Concent 34.1 % Red Cell Distribution Width 18.2 % Platelet Count 132 TH/MM3 Mean Platelet Volume 8.6 FL Neutrophils (%) (Auto) 82.6 % Lymphocytes (%) (Auto) 13.2 % Monocytes (%) (Auto) 3.7 % Eosinophils (%) (Auto) 0.3 % Basophils (%) (Auto) 0.2 % Neutrophils # (Auto) 3.8 TH/MM3 Lymphocytes # (Auto) 0.6 TH/MM3 Monocytes # (Auto) 0.2 TH/MM3 Eosinophils # (Auto) 0.0 TH/MM3 Basophils # (Auto) 0.0 TH/MM3 CBC Comment DIFF FINAL Differential Comment Blood Urea Nitrogen 12 MG/DL Creatinine 0.84 MG/DL Random Glucose 113 MG/DL Total Protein 8.2 GM/DL Albumin 4.1 GM/DL Calcium Level 9.9 MG/DL Alkaline Phosphatase 109 U/L Aspartate Amino Transf (AST/SGOT) 25 U/L Alanine Aminotransferase (ALT/SGPT) 25 U/L Total Bilirubin 0.5 MG/DL Sodium Level 136 MEQ/L Potassium Level 3.5 MEQ/L Chloride Level 100 MEQ/L Carbon Dioxide Level 25.8 MEQ/L Anion Gap 10 MEQ/L Estimat Glomerular Filtration Rate 70 ML/MIN Lactic Acid Level 1.6 mmol/L Total Creatine Kinase 40 U/L Troponin I LESS THAN 0.02 NG/ML Thyroid Stimulating Hormone 3rd Gen 1.470 uIU/ML MDM Medical Decision Making Medical Screen Exam Complete: Yes Emergency Medical Condition: Yes Medical Record Reviewed: Yes Interpretation(s) Last Impressions Chest X-Ray 10/02/17 1102 Signed Impressions: CONCLUSION: Negative for acute process Differential Diagnosis Chest wall pain versus pneumonia versus pneumothorax versus COPD versus PE Narrative Course 56-year-old female presents to the emergency department for evaluation of right lower chest pain that started yesterday. Patient was seen on September 19, [address] pulmonary angiogram was negative for PE at that time. EKG, CBC, CMP, lactic acid, blood cultures 2, CK, troponin, chest x-ray were ordered in triage. TSH is ordered and pending. Patient is given normal saline 1 L IV bolus , morphine 4 mg IV, Reglan 10 mg IV. EKG shows sinus tachycardia, heart rate 118. CBC shows no acute abnormality. CMP shows normal WBC of 4.7, neutrophils of 82.6. CK is 40. Troponin is less than 0.02. Lactic acid is 1.6. TSH is 1.470. Chest x-ray is negative for acute process. Upon reexamination, patient's pain is gone. She states she is feeling hungry. I will discuss the case with her oncologist. I spoke with Dr. Hickey who states that she will see the patient tomorrow in her office at 9:00. She agrees with discharge home. I discussed with the patient who states that she is ready to go home and is hungry. She is return here for any acute worsening of symptoms. She states she will follow up with Dr. Hickey in the office tomorrow morning. The patient was discharged in stable condition with instructions, including return instructions and follow up instructions. Diagnosis Primary Impression: Atypical chest pain Referrals: Lillian Hickey MD 1 day Patient Instructions: Chest Wall Pain (ED), General Instructions Additional Instructions: Follow-up with Dr. Hickey at 9 AM in her [place] office. Return to the emergency department for any acute worsening of symptoms. Med/Other Pt SpecificInfo: No Change to Meds Disposition: DISCHARGE HOME Condition: Stable Michelle Hassan Oct 02, 2017 12:52
[2017-10-02 14:40] VITALS: BP 123/76; PULSE 90; RESP 18; O2SAT 99
[2017-10-02 16:12] VITALS: BP 143/81; PULSE 85; RESP 18; O2SAT 99
[2017-10-02] MEDS ORDERED: cefTRIAXone INJ 1,000 MG in SODIUM CHLORIDE 0.9% INJ 100 ML IV ONE (16:45)
--- NOTE | 2017-10-02 22:19 | EKG ---
Date Performed: 10/02/2017 Time Performed: 11:10:01 PTAGE: 56 years EKG: SINUS TACHYCARDIA ABNORMAL RHYTHM ECG PREVIOUS TRACING : 09/19/2017 09.36 Compared to previous tracing, rate has increased DOCTOR: Jere Miller Interpretating Date/Time 10/02/2017 22:18:26
--- NOTE | 2017-10-05 11:26 | PD ---
Physical Exam Narrative I, Dr. Huitron, have reviewed the advance practice practitioner's documentation and am in agreement, met with the patient face to face, made the diagnosis, and the medical decision making was done by me. *My assessment and Findings: Please see mid-level provider note for full history , physical, and disposition. Briefly, patient presented to the emergency department with right pleuritic chest wall pain which is worse with deep inspiration. She denies left-sided chest pain. She is a lung cancer patient was recently seen in the ER on September 19 for the same symptoms. At that time CTA was negative for PE. Additionally, she recently completed a course of Levaquin. Will check labs, EKG, chest x-ray, will discuss with patient's oncologist. Data Data Last Documented VS Vital Signs Date Time Temp Pulse Resp B/P (MAP) Pulse Ox O2 Delivery O2 Flow Rate FiO2 10/02/17 16:12 85 18 143/81 (101) 99 Room Air 10/02/17 10:52 97.6 Orders Orders Sepsis Workup Initiated (10/02/17 ) Complete Blood Count With Diff (10/02/17 11:02) Comprehensive Metabolic Panel (10/02/17 11:02) Lactic Acid Sepsis Protocol (10/02/17 11:02) Blood Culture (10/02/17 11:02) Iv Access Insert/Monitor (10/02/17 11:02) Oxygen Administration (10/02/17 11:02) Oximetry (10/02/17 11:02) Blood Glucose (10/02/17 11:02) Electrocardiogram (10/02/17 11:02) Basic Metabolic Panel (Bmp) (10/02/17 11:02) Ckmb (Isoenzyme) Profile (10/02/17 11:02) Troponin I (10/02/17 11:02) Ecg Monitoring (10/02/17 11:02) Chest, Pa & Lat (10/02/17 11:02) Thyroid Stimulating Hormone (10/02/17 12:44) Sodium Chlor 0.9% 1000 Ml Inj (Ns 1000 M (10/02/17 12:45) Morphine Inj (Morphine Inj) (10/02/17 12:45) Metoclopramide Inj (Reglan Inj) (10/02/17 12:45) Ed Discharge Order (10/02/17 16:37) Ceftriaxone Inj (Rocephin Inj) (10/02/17 16:45) Labs Laboratory Tests Test 10/02/17 11:30 White Blood Count 4.7 TH/MM3 Red Blood Count 3.69 MIL/MM3 Hemoglobin 12.1 GM/DL Hematocrit 35.4 % Mean Corpuscular Volume 96.0 FL Mean Corpuscular Hemoglobin 32.8 PG Mean Corpuscular Hemoglobin Concent 34.1 % Red Cell Distribution Width 18.2 % Platelet Count 132 TH/MM3 Mean Platelet Volume 8.6 FL Neutrophils (%) (Auto) 82.6 % Lymphocytes (%) (Auto) 13.2 % Monocytes (%) (Auto) 3.7 % Eosinophils (%) (Auto) 0.3 % Basophils (%) (Auto) 0.2 % Neutrophils # (Auto) 3.8 TH/MM3 Lymphocytes # (Auto) 0.6 TH/MM3 Monocytes # (Auto) 0.2 TH/MM3 Eosinophils # (Auto) 0.0 TH/MM3 Basophils # (Auto) 0.0 TH/MM3 CBC Comment DIFF FINAL Differential Comment Blood Urea Nitrogen 12 MG/DL Creatinine 0.84 MG/DL Random Glucose 113 MG/DL Total Protein 8.2 GM/DL Albumin 4.1 GM/DL Calcium Level 9.9 MG/DL Alkaline Phosphatase 109 U/L Aspartate Amino Transf (AST/SGOT) 25 U/L Alanine Aminotransferase (ALT/SGPT) 25 U/L Total Bilirubin 0.5 MG/DL Sodium Level 136 MEQ/L Potassium Level 3.5 MEQ/L Chloride Level 100 MEQ/L Carbon Dioxide Level 25.8 MEQ/L Anion Gap 10 MEQ/L Estimat Glomerular Filtration Rate 70 ML/MIN Lactic Acid Level 1.6 mmol/L Total Creatine Kinase 40 U/L Troponin I LESS THAN 0.02 NG/ML Thyroid Stimulating Hormone 3rd Gen 1.470 uIU/ML MDM Supervised Visit with MISHA: Yes Diagnosis Primary Impression: Atypical chest pain Referrals: Lillian Hickey MD 1 day Patient Instructions: General Instructions, Chest Wall Pain (ED) Departure Forms: Tests/Procedures Additional Instruction: Follow-up with Dr. Hickey at 9 AM in her [place] office. Return to the emergency department for any acute worsening of symptoms. Disposition: 01 DISCHARGE HOME Condition: Stable Miroslava Huitron MD Oct 05, 2017 11:26
== END 2017-10-02 18:13 | disposition home or self-care (01) ==
LOC: NEPE 10:35
DX: C34.91 Malignant neoplasm of unspecified part of right bronchus or lung (principal); R07.89 Other chest pain; E03.9 Hypothyroidism, unspecified
CPT/HCPCS: 71046; 80053; 82550; 83605; 84443; 84484; 85025; 87040; 93005; 96361; 96374; 96375; 99285; J0696; J2270; J2765; J7030